=== PATIENT | female | born 1940 | race Caucasian/White ===

== ENCOUNTER 2018-03-21 14:26 | Inpatient (IN) | payer MEDICARE ==
[2018-03-21] MEDS ORDERED: Dextrose 50% Syringe 50 ML* 25 GM/50 ML SYRINGE IV PUSH ONE (15:01)
[2018-03-21] MEDS ORDERED: NS 0.9% 1000 ML* 1,000 ML IV ONE (15:03)
[2018-03-21] MEDS ORDERED: Dextrose 50% Syringe 50 ML* 25 GM/50 ML SYRINGE ONE (15:28)
[2018-03-21 15:41] LABS: ABS Basophils 0.1 10^3/ul (0-0.2); ABS Eosinophils 0.3 10^3/ul (0-0.6); ABS Lymphocytes 1.1 10^3/ul (1.0-4.8); ABS Monocytes 0.6 10^3/ul (0-0.8); ABS Nucleated RBC 0 10^3/ul; Eosinophil % 3.9 % (0-6); Hematocrit 38 % (35-47); Hemoglobin 12.6 g/dl (12.0-16.0); Lymphocyte % 16.1 % (25-47); Mean Corpuscular HGB Conc 33 g/dl (31-36); Mean Corpuscular Hemoglobin 29 pg (27-31); Mean Corpuscular Volume 87 fL (80-97); Mean Platelet Volume 6.9 um3 (7.4-10.4); Nucleated Red Blood Cells % 0.1; Platelet Count 456 10^3/ul (150-450); Red Blood Count 4.35 10^6/ul (4.0-5.4); Red Cell Distribution Width 18 % (10.5-15)
[2018-03-21] MEDS ORDERED: LORazepam INJ* 2 MG/ML 1 ML VIAL IV PUSH ONE ×2 (15:41→16:16)
[2018-03-21] MEDS ORDERED: LORazepam INJ* 2 MG/ML 1 ML VIAL ONE ×2 (15:43→16:09)
[2018-03-21] MEDS ORDERED: Morphine VIAL* 4 MG/ML VIAL (1 ml vial) IV ONE ×3 (15:45→15:55)
[2018-03-21 15:47] LABS: INR 0.91 (0.77-1.02)
[2018-03-21] MEDS ORDERED: Iodixanol* (CONTRAST) 320 MG/ML 100 ML SDV IV ONE (15:53)
--- NOTE | 2018-03-21 16:17 | RAD ---
INDICATION: Altered mental status COMPARISON: CT January 04, 2018 TECHNIQUE: Single AP portable view of the chest was obtained. FINDINGS: Image quality is compromised due to the relative inferiority of a portable chest x-ray. The heart and mediastinum exhibit normal size and contour. There are densities obscuring the bilateral lung bases and obscuring the bilateral diaphragm. More superiorly the lungs are adequately aerated. Visualized bones are normal for the patient's age. IMPRESSION: Increased density overlying the bilateral lower lungs could be consistent with mild pulmonary edema similar to the appearance of the chest CT dated January 04, 2018
--- NOTE | 2018-03-21 16:31 | RAD ---
INDICATION: Altered mental status COMPARISON: None. TECHNIQUE: Contiguous axial sections of the brain were obtained from the skull base to the vertex without contrast. FINDINGS: The ventricles, cisterns and sulci exhibit mild and symmetric involutional changes appropriate for the patient's age.. There is a mild degree of periventricular and subcortical white matter hypoattenuation most consistent with chronic microvascular disease. At the junction of the ng-white matter at the right frontal lobe (image 13) there is a focal 5 mm hypoattenuation. Otherwise the tanner-white matter differentiation is adequately maintained and there is no sulcal effacement. No significant focal abnormality or mass effect is present. There is atherosclerotic calcification of the vertebral arteries and petrous carotid arteries. There is no evidence for intracranial hemorrhage. No significant focal osseous abnormality is present. The visualized portion of the paranasal sinuses appear clear. The mastoid air cells are well aerated bilaterally. IMPRESSION: 1. At the right frontal lobe there is a 5 mm hypoattenuating focus that could represent a focal infarction in the correct clinical setting. There are no prior CT images for comparison to comment on chronicity. If the patient is exhibiting focal neurologic deficits and it will influence acute management, superior characterization can be made with MRI of the brain. 2. Otherwise CT findings are consistent with chronic microvascular disease and age-appropriate involutional changes.
--- NOTE | 2018-03-21 17:35 | RAD ---
CPT II: CPT II Codes: 3100F INDICATION: Altered mental status COMPARISON: Same day CT of the brain that did not show any acute intracranial abnormalities. TECHNIQUE: A CT angiogram of the head and neck was performed with 80 cc of Visipaque 320. Contiguous axial sections were obtained from the thoracic inlet through the [place]. Images were reconstructed in the sagittal, coronal planes and in a 3-D volume rendered format. The distal cervical internal carotid artery diameter is used as the denominater for stenosis measurement. CTA NECK: The common and internal carotid arteries are patent without hemodynamically significant stenosis. Right: Below the carotid bifurcation the right common carotid artery measures 6 mm in short axis diameter. There is mixed attenuation atherosclerosis at the carotid bulb but the right internal carotid artery measures 6 mm in short axis diameter and immediately adjacent to the carotid bulb. This yields 0% degree stenosis. Left: Below the carotid bifurcation the common carotid artery measures 6 mm in short axis diameter. There is coarse atherosclerotic calcification at the carotid bulb extending into the inferior most portion of the internal carotid artery narrowing the lumen to 4 mm. This yields 33% degree stenosis. The vertebral arteries are patent without gross abnormality. CTA of the brain: The internal carotid, anterior and middle cerebral arteries appear are patent without high grade stenosis or occlusion. There is coarse atherosclerotic calcification of the petrous carotid arteries. The vertebral, basilar and posterior cerebral arteries appear patent without high grade stenosis or occlusion. The posterior communicating arteries appear to be at least extremely diminutive if not absent bilaterally causing the [place] to be incomplete. No focal luminal filling defect, aneurysm or vascular malformation is seen. NON-ARTERIAL FINDINGS: There is a moderate left and large right pleural effusion partially visualized. IMPRESSION: 1. There is approximately 33% degree stenosis due to calcified atherosclerosis at the left carotid bulb. 2. Large right and moderate left pleural effusion is partially visualized. Findings were reported Dr. Elias over the telephone at 1732 hours on March 21, 2018.
--- NOTE | 2018-03-21 17:50 | RAD ---
INDICATION: Altered mental status patient is status post right nephrectomy 14 days earlier. COMPARISON: Similar CT examination dated January 04, 2018. TECHNIQUE: Multidetector CT images of the chest, abdomen and pelvis were obtained from the lung apices to the ischial tuberosities without intravenous contrast . Imaging was acquired approximately 4 minutes after the patient received IV contrast for a CT of the head and neck. Image quality is limited by motion artifact, the absence of oral contrast, the late stage of the IV contrast and the fact the patient's arms are overlying her body. CHEST: There is a large right and small to moderate left pleural effusion with adjacent compressive atelectasis of the bilateral lower lobes. There is no mediastinal or hilar lymphadenopathy. The heart and major vascular structures are grossly normal in appearance. ABDOMEN & PELVIS: The liver, spleen, pancreas and adrenal glands are grossly normal in appearance. The gallbladder is normal. The left kidney is normal in appearance without focal mass, calcification or signs of hydronephrosis. The previously injected intravenous contrast is being excreted from the left kidney, filling the left ureter and dependent portion of the urinary bladder. There is gas in the nondependent portion of the urinary bladder. The right kidney is surgically absent and there are clips in the right renal fossa. Evaluation of the gastrointestinal tract is limited in the absence of oral contrast. The small and large bowel are not distended. There is no gross retroperitoneal or mesenteric lymphadenopathy. Coarse calcification in the vicinity of the uterus mostly likely represents old uterine fibroids. There is coarse calcification of the abdominal aorta extending into the bilateral iliofemoral arteries. There are no sinister bone lesions. Multilevel degenerative changes include loss of intervertebral disc height of the thoracic and lumbar spine as well as endplate sclerosis and marginal osteophyte formation from L2 to L4. IMPRESSION: 1. The CT imaging is low quality due to a number of factors listed the top of the report. 2. Large right and moderate left pleural effusion with adjacent compressive atelectasis. 3. Postsurgical changes are consistent with reported history of right nephrectomy. There is no large retroperitoneal fluid collection. 4. There is the nondependent portion of the urinary bladder. Please correlate to prior instrumentation. Alternatively gas-forming microorganisms could cause this appearance. 5. Additional chronic and degenerative changes described in the body the report unlikely to be directly related to the patient's current clinical presentation.
[2018-03-21 20:39] LABS: Urine Appearance Clear; Urine Blood Negative (Negative); Urine Color Straw; Urine Ketones Negative (Negative); Urine Protein Negative (Negative); Urine Specific Gravity 1.017 (1.010-1.030); Urine Urobilinogen Negative (Negative)
[2018-03-21] MEDS ORDERED: Magnesium Sulfate IV* 3 GM in NS 0.9% 100 ML* 100 ML IVPB ONE (20:57)
[2018-03-21] MEDS ORDERED: levETIRAcetam IV* 1,000 MG in NS 0.9% 100 ML* 100 ML IVPB SCH (21:00)
[2018-03-21] MEDS ORDERED: levETIRAcetam IV* 1,000 MG in NS 0.9% 100 ML* 100 ML IVPB ONE (21:00)
[2018-03-21] MEDS ORDERED: levETIRAcetam IV* 500 MG/5 ML VIAL ONE (21:20)
--- NOTE | 2018-03-21 21:22 | RAD ---
INDICATION: Altered mental status COMPARISON: Same day CT of the brain acquired at 1617 hours TECHNIQUE: Contiguous axial sections of the brain were obtained from the skull base to the vertex without contrast at 2049 hours. FINDINGS: Similar to the previous same day CT of the brain image quality is degraded by motion artifact despite 2 sets of image acquisition. The ventricles, cisterns and sulci exhibit mild and symmetrical involutional changes appropriate for the patient's age. There is a mild degree of periventricular and subcortical white matter hypoattenuation most consistent with chronic microvascular disease. The focal 5 mm hypoattenuating focus seen on the previous CT the brain is not confidently visualized on this scan. The tanner-white matter differentiation is adequately maintained and there is no sulcal effacement. No significant focal abnormality or mass effect is present. There is coarse atherosclerotic calcification of the petrous carotid arteries and bilateral vertebral arteries. There is no evidence for intracranial hemorrhage. No significant focal osseous abnormality is present. The visualized portion of the paranasal sinuses appear clear. The mastoid air cells are well aerated bilaterally. IMPRESSION: Image quality is again degraded by motion artifact despite 2 sets of image acquisition. Again seen are age-appropriate chronic findings without definite acute intracranial abnormality.
--- NOTE | 2018-03-21 21:33 | CONS ---
CONSULTATION REPORT: DATE OF CONSULT: 03/21/18 DATE OF DICTATION: 03/21/18 PATIENT OF: Dr. Nelson, Dr. Gallegos, and Dr. Elias. HISTORY OF PRESENT ILLNESS: This is a 77-year-old right-handed woman, who has had a recent complicated medical history. She has been recently diagnosed with renal cell carcinoma, which she had infiltrated into her, apparently, vena cava and had surgery done in [place] with an open right radical nephrectomy, inferior vena cava thrombectomy, lymphadenectomy for renal cell carcinoma. Following the surgery, she had episodes of confusion and agitation that lasted at least several days' time, probably more. She had workups that included a CT scan and an EEG done in [place] and we do not have those results, although the daughter does not think that there is anything on them that changed her care. She was then sent to a subacute facility and then recently to [facility] on Thursday. She has been confused as recently as this past week. She walks with a walker and this Thursday afternoon, she was talking to the daughter in a normal way and walking with the walker without any deficits. It is unclear if she was confused last evening. This morning the daughter came to visit, and she was confused and agitated. This went on for the whole morning and then this afternoon, she had acute difficulty speaking as well as her general confusion. She came in to the ER by ambulance, agitated, but moving all extremities with power and was not cooperative with the ER exam or with CT scan. She was sedated for those procedures. 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 Of note, she had seen Dr. Golden in [place]. PAST MEDICAL HISTORY: She has a past history for hypertension, type 1 diabetes. She also has hypothyroidism. MEDICATIONS: From [facility], her medicines include: 1. Levothyroxine 125 mcg a day. 2. Calcium carbonate. 3. Insulin Humalog 5 units t.i.d. with meals. 4. Norvasc 5 mg daily. 5. Ferrous sulfate 325 daily. 6. Cozaar 25 mg daily. 7. Lantus 7 units subcu daily. 8. Dulcolax 10 mg p.r.n. It is not in her hospital chart or on her orders from [facility] that she was on any blood thinner. It sounded like she had been on blood thinner in [place]. ALLERGIES: She is allergic to PENICILLINS. SOCIAL HISTORY: She does not smoke, drink, or use drugs. REVIEW OF SYSTEMS: Positive for unsteady gait and generalized fatigue. PHYSICAL EXAM: Temperature 97.3, pulse 63, respirations 18, blood pressure 118/ 71. She was sedated, but would react to stimuli either in all 4 extremities with good strength, at least 4/5, but she was not fully cooperative. She did not speak to me, but she was sedated. When I opened up her eyes, her pupils were 2 mm and sluggish. Sensation intact to noxious stimuli on both sides. Cranial nerves were hard to assess. There was no clear-cut facial palsy and she was not cooperative with exam at all. Chest had bilateral rales, worse on the right. Cardiovascular: Regular rate and rhythm. Abdomen is soft. DIAGNOSTIC STUDIES/LAB DATA: Her head and neck CTA shows 33% left carotid occlusion. There is no high-grade stenosis noted. She had a large right and moderate left pleural effusion. She had a chest, abdomen, and pelvic CTA, which showed the pleural effusions, the right nephrectomy. Her CT scan of brain was reviewed. We have no prior CT scan to compare to. There was a right frontotemporal hypodense lesion, which radiologist thought could be the acute infarct. There were chronic microvascular changes as well. There was no bleeding on the CT scan and it is hard to tell if there was any acuity to her hypodensities. It looked like she had diffuse atrophy and sulci enlargement. Labs included a normal white count, platelet count of 456, hematocrit of 38. Normal INR. Chemistry: She had a sodium of 120, glucose of 54, ammonia of 30. Alk phos 173. Total protein 6.7. TSH 13.46. Salicylates and acetaminophen were negative. IMPRESSION AND PLAN: Elizabeth is a complicated patient. Her last known well was sometime yesterday late afternoon between her recent nephrectomy and inferior vena cava thrombectomy. She is clearly not a tPA candidate, but she is also outside the window for procedures such as clot retrieval, but there is also no large vessel occlusion noted on her CTA because her last known well was a little bit unclear with a wide variation. It is possible that this still could represent a stroke and there may, what was being described could possibly, be in part aphasia, especially when she was found later on today, but earlier on this was just a sort of agitation and confusion similar to what she had in [place]. It is possible that this could be a metabolic process. Her sodium is low. She is quite hypothyroid. She is hypoglycemic, so all of these need to be corrected. Other things to be aware, when I discussed this with Dr. Elias, is that she is at risk for pulmonary embolus, and despite her negative CTA, I would be aggressive in terms of working her up for hypoxemia that could be contributing this and Dr. Elias will get at least a blood gas and also she clearly needs to be evaluated urinary tract infection in the postsurgical setting. We are also getting the records from [place] in terms of her prior CT scan and CTA, discussed with the daughter in detail these issues and depending on how things go, an MRI scan would be helpful in the next day or so to sort out if there was acute stroke contributing to her symptoms. Once we get the records from [place], we would make a further decision in terms of whether she should have aspirin or other measures. Thank you for sharing her case. [id number]/[facility] #: [id number] THUY
[2018-03-21] MEDS ORDERED: Dextrose 50% Syringe 50 ML* 25 GM/50 ML SYRINGE IV PUSH PRN (21:39)
[2018-03-21] MEDS ORDERED: NS 0.9% 500 ML* 500 ML IV ONE (21:50)
[2018-03-21 22:00] LABS: EGFR Non-African American 67.4 (>60)
[2018-03-21] MEDS: Heparin VIAL(*) 5000 UNITS/ML VIAL (FIVE THOUSAND) SUBCUT SCH (22:41)
[2018-03-21] MEDS ORDERED: Aspirin SUPP* 300 MG ONE (23:02)
[2018-03-21] MEDS: Aspirin SUPP* 300 MG PR SCH (23:05)
[2018-03-22 00:12] LABS: EGFR Non-African American 68.4 (>60)
[2018-03-22] MEDS: NS 0.9% 1000 ML* 1,000 ML IV SCH ×2 (00:40→19:36)
--- NOTE | 2018-03-22 01:18 | ED ---
Cedrick Shepard Simon, scribed for Elizabeth Elias MD on 03/21/18 at 1551 . Altered Mental Status - HPI Summary HPI Summary: This patient is a 77 year old F presenting to [facility] accompanied by daughter from [facility] with a chief complaint of AMS and extreme confusion starting 03/20/18, with a possible LKW of 2100. Sx started out today with pt as less responsive, then became nonverbal and unable to follow commands as day progressed; unresponsive. Pt is S/P right nephrectomy 14 days ago at [facility] for renal carcinoma . No respiratory distress, no vomiting, no recent fall, no roommate at [facility] to report behavior. Per daughter, pt had a lot of delirium for 4-5 days post-surgery. Was normal last week, confused this morning , increasingly more symptomatic and confused as day went on. Sodium levels low after surgery a major concern, started Na+ pills post-op. Still able to urinate normally without weinstein. Post-op there was trouble with blood pressure fluctuation. Pt never needed dialysis. Was in correction at [facility] recently but was pretty normal and walking around until today. At the time of initial evaluation: Breathing labored, awake snoring sounds. 162/106, 81 BPM, 2L NC O2 applied, but O2 sats 95% on RA. Blood glucose 120 taken by EMS today [facility]. No narcotics are being given for pain. Blood glucose 59 @ 1530. Not herself this morning, worse throughout the day, saying things that didnt make sense today. Daughter doesnt know if Pt has eaten today. Dr Garnett reports after review of records that pt had vena cava clot and vena cava thrombectomy, caused by renal cell CA compressing vena cava and that pt was believed to be on blood thinners post op at [place]. Review of records from [facility] now show pt is not on any blood thinners. Level 5 caveat: Unable to obtain full HPI due to pt s AMS. - History Of Current Complaint Chief Complaint: EDAltMentalStatus Stated Complaint: AMS Hx Obtained From: Family/Content Analyst, EMS Hx From Patient Unobtainable Due To: Altered Mental Status Onset/Duration: Unknown - possible LNK 2100 03/20/18, Still Present, Gradually Timing: Constant, Lasting Hours Severity Initially: Mild Severity Currently: Severe Character: Confusion, Agitation Aggravating Factor(s): Unknown Alleviating Factor(s): Unknown Associated Signs And Symptoms: Negative: Fever Related History: Similar Episode/Diagnosed As: - delirium after surgery - Allergies/Home Medications Allergies/Adverse Reactions: Allergies Allergy/AdvReac Type Severity Reaction Status Date / Time Penicillins Allergy Severe Unknown Verified 03/21/18 15:01 Reaction Details Home Medications: Home Medications Acetaminophen TAB* [Tylenol TAB*] 650 mg PO Q6H PRN 03/21/18 [History Confirmed 03/21/18] Al Hydrox/Mg Hydrox/Aakash BULK* [Mylanta - BULK BOT*] 15 ml PO Q4H PRN 03/21/18 [ History Confirmed 03/21/18] Bisacodyl SUPP* [Dulcolax Supp*] 10 mg NM DAILY PRN 03/21/18 [History Confirmed 03/21/18] Calcium Carbonate/Vitamin D3 [Calcium 600-Vit D3 800 Caplet] 2 tab PO DAILY 07/29 [History Confirmed 03/21/18] Ferrous Sulfate TAB* 325 mg PO EVERY OTHER DAY 03/21/18 [History Confirmed 03/21] Insulin GLARGINE(*) [Lantus(*)] 7 units SUBCUT DAILY 03/21/18 [History Confirmed 03/21/18] Insulin Lispro [Humalog Kwikpen] 5 unit SC TID AC 03/21/18 [History Confirmed ] Insulin Lispro [Humalog Kwikpen] 5 unit SC TID AC 03/21/18 [History Confirmed ] Levothyroxine TAB* [Synthroid TAB*] 125 mcg PO QAM 03/21/18 [History Confirmed 03/21/18] Losartan TAB* [Cozaar TAB*] 25 mg PO DAILY 03/21/18 [History Confirmed 03/21/18] Magnesium Hydroxide LIQ* [Milk of Magnesia LIQ*] 30 ml PO DAILY PRN 03/21/18 [ History Confirmed 03/21/18] [place]-3 Fatty Acids (Nf) [Fish Oil (NF)] 1,000 mg PO DAILY 03/21/18 [History Confirmed 03/21/18] amLODIPine TAB* [Norvasc 5 mg TAB*] 5 mg PO DAILY 03/21/18 [History Confirmed ] PMH/Surg Hx/FS Hx/Imm Hx Previously Healthy: No Endocrine/Hematology History: Reports: Hx Diabetes - type I Cardiovascular History: Reports: 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, Hx Hypertension History: Reports: Hx Renal Disease - renal cell carcinoma Sensory History: Denies: Hx Legally Blind, Hx Deafness Opthamlomology History: Denies: Hx Legally Blind EENT History: Denies: Hx Deafness - Cancer History Cancer Type, Location and Year: renal cell carcinoma, 2018 - Surgical History Surgery Procedure, Year, and Place: eye, laser treatment, right Nephrectomy 2017 for renal cell carcinoma Infectious Disease History: No Infectious Disease History: Denies: Traveled Outside the [place] in Last 30 Days - Family History Known Family History: Positive: Other - Right eye Ptosis in son, father - Social History Lives: At [facility] Alcohol Use: Occasionally Substance Use Type: Reports: None Smoking Status (MU): Never Smoked Tobacco Review of Systems - ROS Summary Review of Systems Summary: Level 5 caveat: ROS limited do to Pt's AMS. Constitutional: Negative Positive: Other - Pinpoint pupils Positive: Other - Labored, clearing throat alot Negative: Vomiting Positive: other - able to urinate s/p nephrectomy Neurological: Other - altered mental status, agitated All Other Systems Reviewed And Are Negative: No Physical Exam - Summary Physical Exam Summary: Appearance: ill-appearing, pt nonverbal, grunting, actively moving on stretcher , no eye contact, frequent throat clearing Skin: Warm, color reflects adequate perfusion, dry Head: Normal Head/Face inspection, atraumatic Eyes: Conjunctiva clear, pinpoint pupils ENT: Normal inspection Neck: Supple, no nodes, no JVD Respiratory: decreased breath sounds throughout, worse on right than left, no wheezes, Cardio: RRR, No murmur, pulses normal, brisk capillary refill Abdomen: Soft, nontender, steri-strips in place over abd incision which is dry and intact. No masses. Bowel sounds: Present Musculoskeletal: moves all extremitites, 2+ pedal edema, no deformities Psychological: Unable to determine due to AMS Neuro: Eyes open, moaning, otherwise nonverbal. No focal deficit, unable to follow commands. Triage Information Reviewed: Yes Vital Signs On Initial Exam: Initial Vitals Temp Pulse Resp BP Pulse Ox 97.3 F 85 22 144/122 93 06/10/18 14:59 03/21/18 14:59 03/21/18 14:59 03/21/18 14:59 03/21/18 14:59 Vital Signs Reviewed: Yes Completion Of Physical Exam Limited Due To: Altered Mental Status - [place] Coma Scale Best Eye Response: 4 - Spontaneous Best Motor Response: 5 - Purposeful Movement Best Verbal Response: 2 - Incomprehensible Words Coma Scale Total: 11 Diagnostics - Vital Signs Vital Signs Temp Pulse Resp BP Pulse Ox 03/21/18 15:45 18 03/21/18 14:59 97.3 F 85 22 144/122 93 - Laboratory Lab Results: Lab Results 03/21/18 03/21/18 Range/Units 15:26 15:34 WBC 7.0 (3.5-10.8) 10^3/ul RBC 4.35 (4.0-5.4) 10^6/ul Hgb 12.6 (12.0-16.0) g/dl Hct 38 (35-47) % MCV 87 (80-97) fL MCH 29 (27-31) pg MCHC 33 (31-36) g/dl RDW 18 H (10.5-15) % Plt Count 456 H (150-450) 10^3/ul MPV 6.9 L (7.4-10.4) um3 Neut % (Auto) 70.4 (38-83) % Lymph % (Auto) 16.1 L (25-47) % [place] % (Auto) 8.3 H (0-7) % Eos % (Auto) 3.9 (0-6) % Baso % (Auto) 1.3 (0-2) % Absolute Neuts (auto) 5.0 (1.5-7.7) 10^3/ul Absolute Lymphs (auto) 1.1 (1.0-4.8) 10^3/ul Absolute Monos (auto) 0.6 (0-0.8) 10^3/ul Absolute Eos (auto) 0.3 (0-0.6) 10^3/ul Absolute Basos (auto) 0.1 (0-0.2) 10^3/ul Absolute Nucleated RBC 0 10^3/ul Nucleated RBC % 0.1 POC Glucose (mg/dL) 59 L (70-100) mg/dL Result Diagrams: 03/21/18 15:34 03/21/18 23:45 Lab Statement: Any lab studies that have been ordered have been reviewed, and results considered in the medical decision making process. - Radiology CXR Xray Interpretation: No Acute Changes - Possible similarity to 01/04/18 CT chest Radiology Interpretation Completed By: Radiologist - Increased density overlying the bilateral lower lungs, could be consistant with mild pulmonary edema similar to the appearance of the chest CT 01/04/18. Dr. Elias aware of this report. - CT CT brain CT Interpretation Completed By: Radiologist - 1. At the right frontal lobe there is a 5 mm hypoattenuating focus that could represent a focal infarction in the correct clinical setting. There are no prior CT images for comparison to comment on chronicity. If the patient is exhibiting focal neurologic deficits and it will influence acute management, superior characterization can be made with MRI of the brain. 2. Otherwise CT findings are consistent with chronic microvascular disease and age-appropriate involutional changes. Dr. Elias aware of this report. CTA head/neck CT Interpretation Completed By: Radiologist CT chest A/P CT Interpretation Completed By: Radiologist - 1. The CT imaging is low quality due to a number of factors listed the top of the report. 2. Large right and moderate left pleural effusion with adjacent compressive atelectasis. 3. Postsurgical changes are consistent with reported history of right nephrectomy. There is no large retroperitoneal fluid collection. 4. There is the nondependent portion of the urinary bladder. Please correlate to prior instrumentation. Alternatively gas-forming microorganisms could cause this appearance. 5. Additional chronic and degenerative changes described in the body the report unlikely to be directly related to the patient's current clinical presentation. Dr. Elias aware of this report. Re-Evaluation - Re-Evaluation First Eval Re-Evaluation Time: 15:00 Change: Unchanged Comment: remains with altered mental status, daughter at bedside, states pt is Type I DM. Check FS glu =59. D50, 1 amp given. Second Eval Re-Evaluation Time: 15:30 Change: Unchanged Comment: pt remains agitated on stretcher, moving all extremities, moaning, needs sedation to obtain CT scans. Ativan, Morphine given. Third Eval Re-Evaluation Time: 16:30 Change: Unchanged Comment: Discussed brain CT with Dr. Hartman. Pt remains with altered mental status and daughter with pt. Altered Mental Statu Course/Dx - Course Course Of Treatment: 77 yo F with hx renal cell CA BIBA for worsening mental status since possibly 2100pm 03/20/18, s/p right nephrectomy 2 weeks ago. Pt is not TPA eligible due to recent nephrectomy so lyssa tanner not called on adm. If LNW is 2100, pt could still be LVO and candidate for endovascular retrieval, so CT head and neck ordered at same time as CT. Pt in soft restraints on EMS stretcher, restraints removed once in room. Called Dr. Garnett 1530 to discuss whether or not to call lyssa tanner (no)/whether or not to perform CT, CTA Chest A/ P with the highest priority (yes), sedation if necessary (yes, ativan). Pt given D50w Syringe for low glucose, dropped since EMS, Visipaque 320, Ativan, Morphine sulfate. 170 Dr[address] Garnett calls to check on pt status, is on his way to come see pt in ED. CTA does not show LVO occlusion or significant carotid stenosis. Pt does not need [facility] at this . 1899, consult Dr. Durbin, agrees to [place] [facility] ABG and UA done - Diagnoses Differential Diagnosis/HQI/PQRI: CVA, Hypoglycemia, Hypothermia, Hypoxia, Intracranial Bleed, Medication Reaction, Metabolic Disorder, Postictal State, Sepsis, Seizure Provider Diagnoses: Altered mental status, S/p nephrectomy, Hypoglycemia due to type 1 diabetes mellitus During the Visit The Following Alert/Code Occurred: Lyssa Tariq - Provider Notifications Discussed Care Of Patient With: Martin Garnett Time Discussed With Above Provider: 15:30 Instructed by Provider To: Admit As Inpatient - Critical Care Time Critical Care Time: 30-74 min - 60 minutes Discharge - Sign-Out/Discharge Documenting (check all that apply): Discharge/Admit/Transfer - admit - Discharge Plan Condition: Critical Disposition: ADMITTED TO [facility] - Billing Disposition and Condition Condition: CRITICAL Disposition: Admitted to [facility] Consult Consult: [address] Durbin who recommended admission to [facility]. The documentation as recorded by the Cedrick lucio Simon accurately reflects the service I personally performed and the decisions made by me, Elizabeth Elias MD.
--- NOTE | 2018-03-22 02:03 | HP ---
CC: Dr. Gabe Nelson; Dr. Martin Garnett * HISTORY AND PHYSICAL: DATE OF ADMISSION: 03/21/18 PRIMARY CARE PROVIDER: Dr. Gabe Nelson. ATTENDING PHYSICIAN: Dr. Wendy Combs *(dictated by Oneyda Demarco NP) CHIEF COMPLAINT: Altered mental status. HISTORY OF PRESENT ILLNESS: Ms. Boss is a 77-year-old female with past medical history significant for diabetes mellitus, renal cell carcinoma, hypertension, hypothyroidism, mild aortic stenosis and anemia, who underwent a right radical nephrectomy on 03/09/18 in [facility]. According to the records from [place], the patient had a postop delirium that had worsened. She had a brain CT showing no acute findings and other workup. According to the notes, the delirium resolved after her epidural was removed, and according to the patient's daughter, she had been back to her usual normal state of health. 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 She had her last sodium on 03/19/18 and it was 125 with a chloride of 90. Per Dr. Nelson' note from a followup on 03/19/18, stated that she had a left pleural effusion. I am unable to find any further details about this. She also had a platelet count of 543, a hemoglobin A1c of 6.5, EF of 60% to 65% with a diastolic dysfunction. Due to postop weakness, the patient moved from where she was in [facility] to the [facility] facility upon discharge from the hospital. According to her daughter, she was at her normal mentation last evening and today, she was found to be altered, nonverbal, and reacting to painful stimuli today. Due to her altered mental status, she was brought to the emergency room for further evaluation. While in the emergency room, the patient was acting to painful stimuli. Her glucose was found to be 59. She received IV dextrose with repeat glucose 137. Sodium is 120, chloride 86, BUN 30. Alk phos elevated at 173, but she appears to chronically have an elevated alk phos. Magnesium 1.7. The patient was restless, received a total of 1.5 mg of IV Ativan in addition to 4 mg of IV morphine. At the time of my evaluation, the patient is alone as her daughter has left. She is nonverbal, minimally responding to painful stimuli. Her pupils are pinpoint. She has her arms pulled up on her chest with some resistance to trying to move them. Due to the patient's altered mental status, she is unable to give a history and physical and history is obtained through medical records and discussing the case with Dr. Elias. She had a blood gas showing only abnormality of PO2 of 73 and a base excess of 3.3. Hospitalists were asked to evaluate the patient for admission. PAST MEDICAL HISTORY: 1. Diabetes mellitus. 2. Renal cell carcinoma. 3. Hypertension. 4. Hypothyroidism. 5. Mild aortic stenosis. 6. Anemia. PAST SURGICAL HISTORY: Status post an open right radical nephrectomy with inferior vena cava thrombectomy and lymphadenectomy on 03/09/18. MEDICATIONS: Home medications include: 1. Tap water enema 500 cc per rectum on the 5th day after no bowel movement. 2. Mylanta 15 mL oral every 4 hours as needed for dyspepsia. 3. Acetaminophen 650 mg p.o. p.r. every 6 hours as needed for fever. 4. Milk of magnesia 30 mL oral daily as needed on the 4th day after no BM or sooner. 5. Dulcolax suppository 10 mg p.r. daily as needed on the 4th day if no BM, if no effect of milk of mag. 6. Levothyroxine 125 mcg oral every morning. 7. Humalog 5 units subcu 3 times daily with meals. 8. Lantus insulin 7 units subcu daily. 9. Losartan 25 mg oral daily. 10. Fish oil 1000 mg oral daily. 11. Ferrous sulfate 325 mg oral every other day. 12. Amlodipine 5 mg oral daily. 13. Kwik lispro insulin 5 units subcutaneous every evening. 14. Calcium 600 - vitamin D3 two tablets oral daily. ALLERGIES: PENICILLIN. FAMILY HISTORY: Unable to determine due to the patient's altered mental status. SOCIAL HISTORY: Unable to determine due to the patient's altered mental status. It appears that her daughter, Radha Boss, will be her surrogate decision maker in the event she is unable to make decisions for herself according to the [facility] records. REVIEW OF SYSTEMS: I was unable to perform a review of systems with the patient , but her pertinent findings are listed in the history of present illness. PHYSICAL EXAMINATION GENERAL APPEARANCE: The patient is a frail, elderly-appearing female, in no acute distress. VITAL SIGNS: Temperature 97.3, heart rate 71, respiratory rate 18, O2 sat 98% on room air, blood pressure 122/66. HEENT: Normocephalic, atraumatic. Pupils are equal and pinpoint in size. Nonreactive to light. Unable to determine extraocular movements. RESPIRATORY: There is no accessory muscle use. The lungs are clear to auscultation bilateral. CARDIOVASCULAR: Regular rate and rhythm. S1 and S2 present. There is a soft systolic murmur heard best at the right upper sternal border. ABDOMEN: Soft, nontender, nondistended. There is right lower abdominal swelling near the incision line. There are bowel sounds hypoactive x4. EXTREMITIES: There is 2+ bilateral lower extremity edema. DP and PT pulses are 1+ and symmetric. MUSCULOSKELETAL: There is no clubbing or cyanosis noted. At this time, the patient is not moving all extremities. She has her arms bent over her chest. NEUROLOGICAL: The patient is unresponsive, unable to determine orientation. She is minimally responsive to pain. SKIN: The patient has a large abdominal J-shaped incision with Steri-Strips that is well approximated. There is no erythema or signs of infection. There are no other rashes or abnormalities seen. DIAGNOSTIC STUDIES/LAB DATA: Sodium 120, potassium 4.8, chloride 86, CO2 of 28 , BUN 30, creatinine 0.87, glucose 137, magnesium 1.7. White blood cell count 7.0, hemoglobin 12.6, hematocrit 38, and platelet count 456. ABG: pH 7.41, PCO2 of 45, PO2 of 73, HCO3 of 27.4, O2 sat 96.7%, base excess 3.3. EKG from today shows a sinus rhythm at a rate of 73. There are no acute signs of ischemia. There are no previous EKGs for comparison. Chest x-ray from today. Radiologist's impression: Increased density overlying the bilateral lower lungs could be consistent with mild pulmonary edema similar to the appearance of chest CT dated 01/04/18. Brain CT from today. Radiologist's impression: At the right frontal lobe, there is a 5-mm hypoattenuating focus that could represent a focal infarction in the current clinical setting. There are no prior CT images for comparison to comment on chronicity. If the patient is exhibiting focal neurological deficits and it will influence acute management, superior characterization can be made with MRI of the brain. Otherwise, CT findings are consistent with chronic microvascular disease and age-appropriate involutional changes. Head CT from today. Radiologist's impression: There is approximately 33% degree of stenosis due to calcified atherosclerosis at the left carotid bulb. Large right and moderate left pleural effusion is partially visualized. Chest, abdomen, pelvis CT from today. Radiologist's impression: The CT imaging is low quality due to a number of factors listed in the report. Large right and moderate left pleural effusion with adjacent compressive atelectasis. Postsurgical changes are consistent with reported history of right nephrectomy. There is no large retroperitoneal fluid collection. There is a nondependent portion of the urinary bladder. Please correlate to prior instrumentation. Alternately, gas- forming microorganisms could cause this appearance. Additionally, chronic and degenerative changes described in the body of the report unlikely to be directly related to the patient's current clinical presentation. IMPRESSION: Ms. Boss is a 77-year-old female with past medical history significant for diabetes; renal cell carcinoma, status post right radical nephrectomy; hypertension; hypothyroidism; mild aortic stenosis; anemia, who presents to the emergency room from [facility] with altered mental status. She will be admitted as an inpatient for altered mental status and hyponatremia. ASSESSMENT/PLAN: 1. Altered mental status. I suspect this is multifactorial. This includes pain medication received in the emergency room, hyponatremia, postoperative delirium, cerebrovascular accident, seizures, and hypoglycemia. The patient has already been seen in consultation by Dr. Garnett with Neurology. The plan will be to get an MRI in the morning. She already had a brain CT that was negative for acute findings. Upon my evaluation, the patient was noted to have her arms rigid on her chest. I discussed this with Dr. Garnett, who recommended a repeat CT to just ensure that she was not having brain bleeds and the EEG team will come in tonight to do an EEG. I am going to give the patient gentle IV fluids to treat her hyponatremia. I am also going to load her with a gram of Keppra per neurology in the event that this is nonconvulsive seizures and repeat an ABG. We will do neurologic checks q.2 hours. 2. Hyponatremia. I suspect this is likely secondary to SIADH in the setting of the patient's recent surgery. I am going to check serum and urine osmolalities. We will do serial basic metabolic panels to ensure that we are not raising her sodium too fast. We will monitor her urine output closely and place a urinary catheter to assist with this. 3. Hypomagnesium. The patient will receive magnesium replacement. We will recheck in the morning. 4. Elevated alkaline phos. The patient appears to chronically have an elevated alkaline phos. This should be continued to be followed by her primary care provider. 5. Diabetes mellitus. The patient was hypoglycemic when she came to emergency room. She received D5 and her glucose increased to 137. As she is not taking p.o., I am going to hold her insulins and resume when her glucoses are more stable. We will closely monitor her glucose overnight. 6. Renal cell carcinoma. The patient is status post radical right nephrectomy on 03/09/18. She will need to continue to follow up postoperatively as previously planned. Her incision has no signs of infection and appears to be healing well. 7. Hypothyroidism. The patient has an elevated TSH. Her TSH is 13.46. She just had her levothyroxine increased on 03/19/18 from 100 mcg to 125 mcg. We will not adjust her meds further. She will need to have a followup recheck of her TSH in 6 weeks. 8. History of hypertension. I am going to hold the patient's antihypertensives in the setting of a possible cerebrovascular accident to allow for permissive hypertension. We can resume them likely at 24 hours accordingly. 9. History of anemia. The patient is not currently anemic at this time. 10. Thrombocytosis. It appears that the patient's platelets have been elevated for a while now. We will continue to follow this. 11. Fluids, electrolytes, and nutrition. The patient will be n.p.o. until she is awake and able to take p.o. 12. Code status. Full code. 13. DVT prophylaxis. The patient is at high risk. If her repeat CT scan shows no signs of bleed, I will place her on subcu heparin. 14. Disposition. Inpatient. TIME SPENT: Time for this admission was approximately 70 minutes, greater than half of that was spent with the patient and reviewing her medical record. The case has been reviewed with the attending, Dr. Combs, who agrees with the plan of care. Reviewed by NANCY FENG 03/25/18 1039 [id number]/[facility] #: [id number] THUY
[2018-03-22] MEDS ORDERED: Furosemide IV* 10 MG/ML VIAL (40 MG) IV ONE (04:00)
[2018-03-22] MEDS ORDERED: Furosemide IV* 10 MG/ML 2 ML VIAL (20 MG) IV ONE (04:00)
[2018-03-22 06:28] LABS: ABS Basophils 0.1 10^3/ul (0-0.2); ABS Eosinophils 0.2 10^3/ul (0-0.6); ABS Lymphocytes 0.5 10^3/ul (1.0-4.8); ABS Monocytes 0.9 10^3/ul (0-0.8); ABS Neutrophils 12.4 10^3/ul (1.5-7.7); ABS Nucleated RBC 0 10^3/ul; Eosinophil % 1.3 % (0-6); Hematocrit 32 % (35-47); Hemoglobin 10.9 g/dl (12.0-16.0); Lymphocyte % 3.2 % (25-47); Mean Corpuscular HGB Conc 34 g/dl (31-36); Mean Corpuscular Hemoglobin 30 pg (27-31); Mean Corpuscular Volume 88 fL (80-97); Mean Platelet Volume 6.9 um3 (7.4-10.4); Nucleated Red Blood Cells % 0; Platelet Count 400 10^3/ul (150-450); Red Blood Count 3.69 10^6/ul (4.0-5.4); Red Cell Distribution Width 17 % (10.5-15)
[2018-03-22] MEDS: Heparin VIAL(*) 5000 UNITS/ML VIAL (FIVE THOUSAND) SUBCUT SCH ×3 (06:35→21:59)
[2018-03-22 06:43] LABS: EGFR Non-African American 78.3 (>60)
[2018-03-22] MEDS: Aspirin SUPP* 300 MG PR SCH (08:50)
[2018-03-22] MEDS ORDERED: diPHENhydraMINE IV* 50 MG/ML 1 ml VIAL (BENADRYL) SLOW PUSH ONE (10:49)
[2018-03-22] MEDS ORDERED: diPHENhydraMINE IV* 50 MG/ML 1 ml VIAL (BENADRYL) ONE (10:53)
[2018-03-22] MEDS: Morphine VIAL* 4 MG/ML VIAL (1 ml vial) IV PRN (10:58)
--- NOTE | 2018-03-22 12:04 | RAD ---
HISTORY: AMS, history of renal cell carcinoma COMPARISONS: Head CT dated March 21, 2018 TECHNIQUE: The following sequences were obtained of the head: Sagittal T1-weighted images, axial T2-weighted images, axial FLAIR images, axial susceptibility weighted images, axial T1-weighted images. Additionally, axial diffusion-weighted images were obtained with calculated apparent diffusion coefficients. FINDINGS: HEMORRHAGE/INFARCT: There is no hemorrhage or acute infarct. MASSES/SHIFT: There is no mass or shift. EXTRA-AXIAL SPACES/MENINGES: There are no extra-axial fluid collections. SULCI AND VENTRICLES: There is diffuse and proportional enlargement of the sulci and ventricles. CEREBRUM: There are few, scattered small foci of elevated T2/FLAIR signal within the periventricular and subcortical white matter. BRAINSTEM: There are no focal parenchymal abnormalities. CEREBELLUM: There are no focal parenchymal abnormalities. The cerebellar tonsils are normal in size and position. SELLA: The sella is normal. PINEAL: The pineal region is clear. CP ANGLE/TEMPORAL BONES: The labyrinthine structures are grossly normal. VESSELS: Normal flow-voids are noted within the visualized vertebral vasculature. DIFFUSION ABNORMALITIES: There are no diffusion abnormalities. PARANASAL SINUSES/MASTOIDS: The paranasal sinuses are clear. ORBITS: The orbits are unremarkable. BONES AND SOFT TISSUE: No bone or soft tissue abnormalities are noted. OTHER: None IMPRESSION: 1. DIFFUSE INVOLUTIONAL CHANGE. 2. FEW, SCATTERED, SMALL FOCI OF ELEVATED T2/FLAIR SIGNAL WITHIN THE PERIVENTRICULAR AND SUBCORTICAL WHITE MATTER. WHILE THESE FINDINGS ARE NONSPECIFIC, THEY CAN BE SEEN IN ASSOCIATION WITH MIGRAINE HEADACHE, THE SEQUELA OF PREVIOUS INFECTION OR INFLAMMATION, AND CHRONIC SMALL VESSEL ISCHEMIA. DEMYELINATING DISEASE IS ALSO WITHIN THE DIFFERENTIAL, BUT IS CONSIDERED LESS LIKELY IN THE ABSENCE OF THE APPROPRIATE CLINICAL PRESENTATION. 3. NO RESTRICTED DIFFUSION TO SUGGEST ACUTE INFARCT.
[2018-03-22] MEDS ORDERED: Naloxone* 0.4 MG/ML 1 ML VIAL IV PUSH ONE (13:42)
[2018-03-22] MEDS ORDERED: Furosemide IV* 10 MG/ML VIAL (40 MG) IV SLOW PU ONE (14:00)
--- NOTE | 2018-03-22 14:00 | PN ---
Progress Note - Progress Note Date of Service: 03/22/18 Note: CRITICAL CARE MEDICINE Date: 03/22/18 Time: 1100 SUBJECTIVE: Patient seen and examined. PHYSICAL EXAM: thin, frail Vital Signs: Reviewed. stable. Neurologic: encephalopathic. pupils 1mm. moves all ext to pain and can localize with effort but not opening eyes. Grimace present. Mild moan. but nothing to verbal. HEENT: pupils equal and neg ocr. Sclera anicteric. Trachea midline. Mild secretions Cardiovascular: S1 S2 Respiratory: coarse bl R>L and dec but comfortable pattern Abdomen: Soft, nt. Recent large incision looks fine Extremities: Warm; poor nail integrity. LABS: Reviewed. IMAGING: Reviewed. MEDICATIONS: Reviewed. ASSESSMENT: 77 F Acute encephalopathy - working dx is metabolic, but certainly can be multifactorial - however, no seizure on eeg, mri coming back with nonspecific scattered flare signals but no acute ischemia, stable abg, ammonia benign on admission and Na not too far off her recent counts Post operative changes post recent R nephrectomy Acute delirium befell her after that and can be similar to her ailment now, as well as report of SIADH contributing Euvolemic hyponatremia - working with NS and lasix currently. Can check bmp later today and if needed can consider 3% instead but no seizures and doubtful Na itself causing this degree of encephalopathy - could be potential post ictal? Hypothyroid b/l Pleural effusions PLAN: Neurologic: as above. time. Neuro f/u appreciated Cardiovascular: perfusing. vol status with ns and lasix Respiratory: RA. but Need to watch in icu for now. Airway ok but can lose easily. icu care. Gastrointestinal: npo for now. sup Renal/Metabolic: f/u fx Infectious Disease: no abx needs Hematology: stable. Endocrine: glu up now. ssi. T4 Musculoskeletal: turn and position. wound care Psych/Social: will look to d/w family Disposition: ICU Code Status: Full Critical Care Time: 30min Janna Grigsby DO
[2018-03-22] MEDS: Insulin LISPRO* 1 UNITS UNIT SUBCUT SCH ×2 (16:35→20:03)
[2018-03-22 17:49] LABS: EGFR Non-African American 82.3 (>60)
[2018-03-22] MEDS ORDERED: KCL 20 MEQ/100 ML IVPREMIX* 20 MEQ/100 ML BAG IV ONE (21:05)
[2018-03-22] MEDS ORDERED: Calcium CHLORIDE 10% SYRINGE* 1 GM in D5W 100 ML BAG* 100 ML IV ONE (21:05)
--- NOTE | 2018-03-23 00:04 | PN ---
Progress Note - Progress Note Date of Service: 03/23/18 Note: Patient on oxymask at beginning of shift, further desaturation during the evening. Diminished breath sounds. CXR rotated film with concern for worsening effusion on right. BiPAP placed with good effect.
[2018-03-23] MEDS: Insulin LISPRO* 1 UNITS UNIT SUBCUT SCH ×6 (00:44→20:26)
[2018-03-23] MEDS: NS 0.9% 1000 ML* 1,000 ML IV SCH ×2 (03:55→17:18)
[2018-03-23 05:25] LABS: ABS Basophils 0.1 10^3/ul (0-0.2); ABS Eosinophils 0 10^3/ul (0-0.6); ABS Lymphocytes 0.5 10^3/ul (1.0-4.8); ABS Monocytes 0.9 10^3/ul (0-0.8); ABS Neutrophils 18.6 10^3/ul (1.5-7.7); ABS Nucleated RBC 0 10^3/ul; Eosinophil % 0.2 % (0-6); Hematocrit 30 % (35-47); Hemoglobin 10.2 g/dl (12.0-16.0); Lymphocyte % 2.4 % (25-47); Mean Corpuscular HGB Conc 34 g/dl (31-36); Mean Corpuscular Hemoglobin 29 pg (27-31); Mean Corpuscular Volume 88 fL (80-97); Mean Platelet Volume 6.9 um3 (7.4-10.4); Nucleated Red Blood Cells % 0; Platelet Count 393 10^3/ul (150-450); Red Blood Count 3.46 10^6/ul (4.00-5.40); Red Cell Distribution Width 18 % (10.5-15); White Blood Count 20.1 10^3/ul (3.5-10.8)
[2018-03-23 05:35] LABS: EGFR Non-African American 56.9 (>60)
[2018-03-23] MEDS ORDERED: Furosemide IV* 10 MG/ML 2 ML VIAL (20 MG) IV ONE (06:23)
[2018-03-23] MEDS ORDERED: Furosemide IV* 10 MG/ML 2 ML VIAL (20 MG) ONE (06:26)
[2018-03-23] MEDS: Heparin VIAL(*) 5000 UNITS/ML VIAL (FIVE THOUSAND) SUBCUT SCH ×3 (06:31→21:53)
[2018-03-23] MEDS: Levothyroxine INJ* 100 MCG/5 ML VIAL IV SCH (06:31)
--- NOTE | 2018-03-23 07:33 | PN ---
NEUROLOGY PROGRESS NOTE: DATE OF SERVICE: 03/22/18 PRIMARY CARE PROVIDER: Dr. Grigsby. Neurology is following for the evaluation of confusion and minimally responsive state. CHIEF COMPLAINT: Minimally responsive. BRIEF HISTORY OF PRESENT ILLNESS: The patient is a 77-year-old female who has history of diabetes mellitus type 2, renal cell carcinoma, hypertension, hypothyroidism, who underwent right radical nephrectomy on 03/09/18 in [facility]. She had an episode of postop delirium, that apparently improved. She went to a rehab facility for 1 day, and then on Thursday, her daughter visited the patient and found that she is confused. She did have an episode of hyponatremia back 2 weeks ago when she was hospitalized for the nephrectomy where it was thought to be related secondary to SIADH. Her sodium apparently got up to the 125 and then she had improvement of her confusion state. She presented to for worsening confusion. During this hospitalization, the patient had a brain CT of the head that was completed on 03/21/18 that was unremarkable except for a 5 mm hypo-attenuated focus representing a previous infarction. There was no evidence of intracranial hemorrhage. She had a CTA of the head completed on 03/21/18 that showed no large vessel occlusion in the intracranial or extracranial vasculature. She had a large right and moderate left pleural effusion that is partially visualized on that study. She had a repeat CT of the head that did not show any interval changes and then she had an MRI of the brain without contrast that showed nonspecific T2 hyperintensities scattered in the periventricular and subcortical white matter. These findings are nonspecific. There are no areas of restricted diffusion to suggest an acute infarction. There is no area of demyelination in the erasto to suspect central pontine myelinolysis. Since being hospitalized, the patient had laboratory values that showed a sodium level of 118 that improved to 120. ABG was done and a pH was 7.46 with a pO2 of 71. Now, the patient has a white blood cell count of 14,000 in a jump from 7000. Her urinalysis was unremarkable. SUBJECTIVE: The patient is still minimally responsive. She is able to respond to noxious stimuli. She does not cooperate with the examiner. She is nonverbal. There has been no reported fevers or seizure-like activity. Apparently yesterday, the patient had some type of extensor movement that was concerning for posturing, but when evaluated by the primary provider and Dr. Garnett, who is the neurologist yesterday, there was no evidence of posturing on the examination. REVIEW OF SYSTEMS: Unable to obtain due to the patient's poor mental status. MEDICATIONS: Currently on aspirin 300 mg daily, dextrose, furosemide 40 mg IV slow push once, morphine 2 mg IV every 4 hours. PHYSICAL EXAMINATION: Temperature of 98.8, heart rate of 74, respiratory rate of 11, oxygen saturation of 98% and blood pressure of 160/117. General: Critically ill-appearing female, in no acute distress. She is awake, but not alert. Normocephalic, atraumatic. Conjunctivae/corneas are clear. Neck is supple with no carotid bruit. Lungs: Crackles and diminished lung sound in the bases bilaterally. Cardiovascular: Regular rhythm with normal S1, S2. Extremities: No hammertoes or high arches. Skin: No skin lesions or rashes. Psych: Not applicable given the patient's poor cooperation. Neurological Examination: Awake, but not alert, oriented to person, place, or time. She does not track examiner. She does not blink to eye threat. Cranial nerves, pinpoint pupils, but are sluggishly reactive bilaterally. She blinked to corneal reflexes; it was tested and are intact as she blinked to the corneal response. She nearly withdrew and removed my arm with nasal stimulation bilaterally. Motor: Increase in tone in bilateral upper extremity and bilateral lower extremities. She is able to withdraw to noxious stimuli and has a flexor of the elbow and flexor of the knee response to distal noxious stimuli. Reflexes: Right/left brachioradialis 2/3, biceps 2/3, triceps 2/2, patella 2/3, ankle trace/trace, plantar extensor/extensor. Sensation is intact to noxious stimuli. Coordination and gait were not assessed due to patient's mental status. LABS, IMAGING, AND OTHER DIAGNOSTIC TESTING: As mentioned above. ASSESSMENT AND RECOMMENDATIONS: This is a complex case. Ms. Elizabeth Boss is a 77-year-old female who recently had right radical nephrectomy. The patient presented with acute encephalopathy that is multifactorial. We suspected there is a metabolic component given her hyponatremia and mild hypoxia. I will review the records from [facility] looking for mostly any episodes of hypoglycemia or hypoxia during the hospitalization. What is interesting is that she had partial recovery for about a day or 2 and then was back to being confused. I wonder if her drop in sodium has a lot to do with her presentation. There was no evidence of seizure- like activity or an intracranial vascular phenomenon that is contributing to this. The nonspecific T2 hyperintensities are less likely to be contributing to the presentation. We do also want to exclude any possible intracranial viral encephalitis if her mentation does not improve after correcting the metabolic disturbance. Please hold the heparin subcu injection tomorrow morning and we can do the lumbar puncture especially if she does not improve or her white count continue to elevate. I discussed these findings with the providers in the ICU. I will continue to follow. Please continue neuro checks every 4 hours. Monitor for any seizure activity. Please contact me for any worsening of her neurological function. I spent a total of 40 minutes and 50% was spent reviewing the medical records, examining the patient, and discussing the care with the primary team. [id number]/[facility] #: [id number] THUY
--- NOTE | 2018-03-23 07:43 | RAD ---
INDICATION: Hypoxia COMPARISON: March 21, 2018 TECHNIQUE: An AP portable view obtained at 2334 hours is submitted. FINDINGS: Bones/Soft Tissues: There are no acute bony findings. Cardiomediastinal: The cardiomediastinal silhouette is normal. Lungs: There is airspace disease right lung base with right-sided pleural effusion. The left lung is clear. Pleura: Right-sided effusion is noted above. Other: None IMPRESSION: AIRSPACE DISEASE RIGHT LUNG BASE WITH EFFUSION. THERE IS MILD WORSENING. SUGGEST CONTINUED FOLLOW-UP
[2018-03-23] MEDS ORDERED: Thiamine IV* 100 MG/ML 2 ML VIAL IV ONE (09:41)
[2018-03-23] MEDS ORDERED: Magnesium Sulfate 2 GM IV* 2 GM/50 ML BAG IVPB ONE (09:42)
[2018-03-23] MEDS ORDERED: Potassium Phosphate IV* 15 MMOLE in NS 0.9% 250 ML* 250 ML IVPB ONE (09:42)
[2018-03-23] MEDS ORDERED: Levofloxacin 500 MG IVPREMIX(* 500 MG/100 ML BAG IVPB SCH (10:00)
[2018-03-23] MEDS: Aspirin SUPP* 300 MG PR SCH (10:45)
[2018-03-23] MEDS: Hydrocortisone INJ* 100 MG VIAL IV SCH ×2 (10:56→18:30)
[2018-03-23] MEDS ORDERED: Thiamine IV* 100 MG in NS 0.9% 50 ML* 50 ML IV ONE (11:00)
[2018-03-23] MEDS ORDERED: Furosemide IV* 10 MG/ML 2 ML VIAL (20 MG) IV SLOW PU ONE (11:00)
--- NOTE | 2018-03-23 11:07 | PN ---
Progress Note - Progress Note Date of Service: 03/23/18 Note: CRITICAL CARE MEDICINE Date: 03/23/18 Time: 955 SUBJECTIVE: Patient seen and examined. bipap overnight and off this am. abg fine PHYSICAL EXAM: thin, frail Vital Signs: Reviewed. stable. Neurologic: encephalopathic. pupils 1mm. moves all ext to pain and can localize a little quicker then yesterday but not completing to source' not opening eyes. more moaning today. HEENT: pupils equal. Sclera anicteric. Trachea midline. Mild secretions better Cardiovascular: S1 S2 Respiratory: dec R >L; comfortable phases Abdomen: Soft, nt. large incision intact Extremities: Warm; dep edema LABS: Reviewed. IMAGING: Reviewed. MEDICATIONS: Reviewed. ASSESSMENT: 77 F Acute encephalopathy - daughter related that pre-surgery pt was sleeping about 18hours a day Post operative changes post recent R nephrectomy Acute delirium Component of SIADH Hypothyroid Potential relative adrenal insuff b/l Pleural effusions PLAN: Neurologic: Neuro f/u appreciated; agree with LP. Wouldn't expect bacterial, but carcinomatosis potential, viral even but more needing to r/o Cardiovascular: perfusing. vol status up interstialy with dep fluid. Mobilize with lasix. npo and therefore fluid restricted Respiratory: O2 suppl. can consider thora if unable to mobilize fluid but would expect transudative. if not tolerating resp status however may consider for therapeutic benefit. Gastrointestinal: npo continued. sup Renal/Metabolic: f/u Na, but much of this chronic in nature Infectious Disease: low grade temp. +/- aspiration. wbc did climb. Can cx and let argue to use levaquin to cover potential lung and even urinary source if were subclinical given her acuity Hematology: stable. Endocrine: glu blunted with ssi. T4 replacement continued and add hydrocortisone. As much as this does not seem like myxedema, if not responding and clinical course remains like this, we may need to escalate such tx Musculoskeletal: turn and position. wound care Psych/Social: daughter updated yesterday; spiritual care eval Disposition: ICU Code Status: Full Critical Care Time: 30min Janna Grigsby DO
[2018-03-23] MEDS ORDERED: NS 0.9% 250 ML* 250 ML ONE (13:23)
[2018-03-23] MEDS ORDERED: Lidocaine 1% INJ* 10 MG/ML 30 ML SDV ONE (13:47)
[2018-03-23] MEDS ORDERED: Vancomycin per Pharmacy* NOTE FOLLOW UP PRN (15:45)
[2018-03-23] MEDS ORDERED: Vancomycin(*) 750 MG in NS 0.9% 250 ML* 250 ML IVPB ONE (16:00)
--- NOTE | 2018-03-23 16:30 | BRIEFOPN ---
Brief Operative Note - Surgery Procedures: Lumbar puncture was done at bedside. Procedure note was dictated. I reviewed the CSF results which showed an elevated WBC, neutrophil predominance , increase nucleated cells, and mild elevation in protein and RBC. The fluid was clear and the CSF pressure was low with normal glucose, no consistent with bacterial meningitis. Spoke to Dr. Grigsby and we have agreed to start empiric antibiotics and antiviral therapy until CSF cultures and HSV PCR comes back. Other d/d carcinomatous meningitis is considered. There wasn't enough CSF to run a cytology. If the cultures are negative, we will reassess for that diagnosis and consider a repeat LP if needed. I discussed the findings with the patient's daughter Maryan Boss who was at bedside this afternoon. Please contact me for any questions or concerns. Mary Greene MD
[2018-03-23] MEDS: CEFTRIAXONE IVPB SCH (17:18)
[2018-03-23] MEDS: NS 0.9% IVPB SCH ×2 (17:18→18:18)
[2018-03-23] MEDS: ACYCLOVIR IVPB SCH (18:18)
[2018-03-24] MEDS: Insulin LISPRO* 1 UNITS UNIT SUBCUT SCH ×6 (01:24→20:30)
[2018-03-24] MEDS: Hydrocortisone INJ* 100 MG VIAL IV SCH ×3 (01:24→18:01)
--- NOTE | 2018-03-24 01:34 | PN ---
INPATIENT NEUROLOGY PROGRESS NOTE: DATE OF SERVICE: 03/23/18 PRIMARY PROVIDER: Dr. Michael Grigsby. Neurology is following to evaluate and for management and recommendation of the patient's encephalopathy. CHIEF COMPLAINT: Confusion. SUBJECTIVE: There has been reported slight clinical change overnight. The patient's respiratory status declined requiring her to be placed on BiPAP. She was having desaturation during the evening before placing the BiPAP. Chest x- ray was obtained and there was a concern for worsening effusion on the right. There is a bedside aide available currently monitoring the patient for any possible vomiting. According to the bedside nurse, the patient appears to be more purposeful since starting the BiPAP. I agree with the assessment as she is less rigid and freely moving her arms and legs. LABORATORY DATA AND IMAGING: Overnight, the patient's WBC increased to 20,000 from 14,000. Platelet count is 393. Sodium is 119, chloride is 88, glucose of 164, calcium 8.7, ammonia 31. I did review her previous labs and her TSH on 07/29 was 13.46. There is a free T4 level pending. MRI of brain that was done yesterday showed diffuse nonspecific T2 hyperintensities. I personally reviewed the EEG that was obtained on 03/21/18. There was moderate -to-severe encephalopathy due to nearly continuous delta slowing. MEDICATIONS: 1. Aspirin. 2. Dextrose. 3. Furosemide. 4. Heparin. 5. Hydrocortisone. 6. Insulin. 7. Levofloxacin 500 mg started today. 8. Magnesium sulfate. 9. Thiamine. REVIEW OF SYSTEMS: Unable to obtain as the patient is confused and noncooperative with the examiner. PHYSICAL EXAMINATION: Vitals: Temperature is 100.9, respiratory rate of 15, pulse rate of 72, oxygen saturation is 100% on BiPAP, blood pressure of 124/64. General: Ill-appearing frail female, in no acute distress. She has a BiPAP mask on. Head is atraumatic, normocephalic without any obvious abnormalities. Eyes: Conjunctivae and corneas are clear. Neck is supple and symmetrical with no meningeal signs such as negative Brudzinski's and Kernig's signs. Lungs are diminished breath sounds in bibasilar area, right more than left. Cardiovascular: Regular rhythm. Normal S1, S2. Neurological Examination: Mental status, the patient is encephalopathic and is not awake at this time. She does not answer any questioning. She has her eyes closed. Cranial nerves, there is improvement in the pinpoint pupil as the right pupil is measuring 3 mm , left pupil measuring 2 mm constricting to 1.5 to 2 mm bilaterally. No facial asymmetry. Motor: Flexion of the elbows and knees to distal noxious stimuli bilaterally and symmetrically. She was spontaneously moving the right arm. Reflexes are 2+ in the brachioradialis, biceps, triceps and patella and 0 at the ankles. She has bilateral extensor plantar responses. Sensation: Localized to noxious stimuli. Coordination and gait were not assessed due to the patient's poor mental status. ASSESSMENT: 1. Acute metabolic and infectious encephalopathy. 2. Cervical spondylosis with myelopathy. 3. Hyponatremia. 4. Leukocytosis. 5. Abnormal TSH. This is a complicated case. There has been slight improvement in the motor function as she is less rigid today as well as seems to have some more purposeful movement. This all initiated after she was started on the BiPAP. Therefore, I suspect that there is a respiratory etiology driving her encephalopathy. I wonder if she has any infectious source such as an underlying pneumonia being masked by the pleural effusion. I will defer the metabolic component to the primary team. I would still like to proceed with doing a lumbar puncture to completely exclude any intracranial pathology that can be contributing to her encephalopathy, although I do not suspect this is the underlying problem. In addition, I did review her previous EEG, which did not show any epileptiform abnormalities, but she did have a moderate-severe degree of encephalopathy, which can be seen with a metabolic disturbance or hypoxic etiology. There is a pending free T4 level. Please continue to monitor for any seizure activity. Neuro checks every 4 hours. Continue excellent supportive care. I will discuss with the primary team regarding further evaluation of the pleural effusion, possible thoracentesis to evaluate the fluid. I will continue to follow. TIME SPENT: I spent a total of 35 minutes and greater than 50% of that was spent directly reviewing the medical chart, examining the patient and discussing the treatment plan and prognosis. Her prognosis continues to be guarded. I can do a lumbar puncture 6-8 hours after the last heparin, DVT prophylaxis infusion. I have discussed this with the nurse, and if approved by the primary team, we will plan on doing the lumbar puncture later this afternoon. [id number]/[facility] #: [id number] [facility]
[2018-03-24] MEDS: NS 0.9% IVPB SCH ×4 (03:43→18:01)
[2018-03-24] MEDS: CEFTRIAXONE IVPB SCH ×2 (03:43→17:04)
[2018-03-24] MEDS: ACYCLOVIR IVPB SCH ×2 (05:05→18:01)
[2018-03-24 05:39] LABS: ABS Basophils 0 10^3/ul (0-0.2); ABS Eosinophils 0 10^3/ul (0-0.6); ABS Lymphocytes 0.3 10^3/ul (1.0-4.8); ABS Monocytes 0.2 10^3/ul (0-0.8); ABS Neutrophils 9.2 10^3/ul (1.5-7.7); ABS Nucleated RBC 0 10^3/ul; Eosinophil % 0 % (0-6); Hematocrit 31 % (35-47); Hemoglobin 10.4 g/dl (12.0-16.0); Mean Corpuscular HGB Conc 34 g/dl (31-36); Mean Corpuscular Hemoglobin 30 pg (27-31); Mean Corpuscular Volume 88 fL (80-97); Mean Platelet Volume 7.1 um3 (7.4-10.4); Nucleated Red Blood Cells % 0; Platelet Count 374 10^3/ul (150-450); Red Blood Count 3.48 10^6/ul (4.00-5.40); Red Cell Distribution Width 18 % (10.5-15); White Blood Count 9.7 10^3/ul (3.5-10.8)
[2018-03-24 05:55] LABS: EGFR Non-African American 56.9 (>60)
[2018-03-24] MEDS: Levothyroxine INJ* 100 MCG/5 ML VIAL IV SCH (06:13)
[2018-03-24] MEDS: Heparin VIAL(*) 5000 UNITS/ML VIAL (FIVE THOUSAND) SUBCUT SCH ×3 (06:13→20:06)
[2018-03-24] MEDS: Vancomycin(*) 500 MG in NS 0.9% 250 ML* 250 ML IVPB SCH ×2 (06:24→18:21)
--- NOTE | 2018-03-24 07:11 | EEG ---
ELECTROENCEPHALOGRAPHY: DATE OF STUDY: PATIENT OF: Dr. Garnett. HISTORY: This is a 77-year-old woman being evaluated for confusion and agitation. This study was don e after it was reported that she may have had an episode of posturing. MEDICATIONS: Include Keppra, magnesium, Ativan, and morphine acutely. INTERPRETATION: With the patient moaning and obtunded, background consists of diffuse beta and theta range frequencies of low to moderate amplitude. Muscle movement artifact are noted. No epileptifor m potentials, focal abnormalities, or major asymmetries of background are present. IMPRESSION: This obtunded EEG shows prominent beta activity which may be secondary to the medication s the patient is consuming. There is some diffuse slowing which is consistent with the encephalopath y, but no specific epileptiform potentials or focal abnormalities are present. [id number]/[facility] #: [id number]
--- NOTE | 2018-03-24 09:09 | PRO ---
LUMBAR PUNCTURE PROCEDURE NOTE: DATE OF PROCEDURE: 03/23/18 CLINICAL INFORMATION: The patient is a 77-year-old female with persistent encephalopathy, leukocytos is, and low-grade fevers. The procedure was done to evaluate for viral encephalitis. INFORMED CONSENT: The procedure and its potential risks and complications were discussed with the richard mary's daughter, Radha Boss, via telephone. Verbal consent was obtained. The risks of infect ion, bleeding, and alternatives to this procedure were discussed in detail. DESCRIPTION OF PROCEDURE: A time-out was performed with Tacho, bedside nurse, to evaluate the corre ct patient, procedure, and site. The area was prepped and draped in the usual sterile fashion. Usin g landmarks, a 20-gauge spinal needle was inserted in the L4-L5 interspace. The stylette was removed and the open pressure was measured, but it was extremely low between 3 to 5 cm of water. 4 cc of cl ear fluid was collected and sent for cell differential and count, Gram stain, culture, glucose, prote in, and HSV PCR. The patient tolerated the procedure well. There was no blood loss or hematoma. Cytology was not sent as there was not enough CSF fluid. [id number]/[facility] #: [id number]
--- NOTE | 2018-03-24 09:13 | PN ---
Subjective Date of Service: 03/24/18 Interval History: Ms. Boss seems to be more awake since early this morning. She seems to be alert but has severe language deficit. This is a new problem. She repeats examiner. She is able to answer "yes" and "no" appropriately to simple questions (e.g., are you in the hospital?is your name Elizabeth? are you in pain?) . She denied any chest pain, SOB, or palpitation. She denied any headaches or visual disturbance. According to the bedside nurse, the patient has generalized extension and bizarre positioning of the left arm. She also has mild facial asymmetry with minimal eye opening on the right and mild facial droop on the left. The patient is unable to provide any history due to limitation in language and word finding difficulty. She is afebrile. WBC dropped from 20k to 9k. Sodium increased from 119 to 124. She has received 2 doses of Acyclovir. Objective Active Medications: Aspirin (Asa Supp*) 300 mg SD DAILY [facility] Last Admin: 03/23/18 10:45 Dose: 300 mg Dextrose (D50w Syringe 50 Ml*) 12.5 gm IV PUSH .FOR FS < 60 - SS PRN PRN Reason: FS < 60 Heparin Sodium (Porcine) (Heparin Vial(*)) 5,000 units SUBCUT Q8HR [facility] Last Admin: 03/24/18 06:13 Dose: 5,000 units Hydrocortisone Sodium Succinate (Solu-Cortef*) 50 mg IV Q8H [facility] Last Admin: 03/24/18 01:24 Dose: 50 mg Sodium Chloride (Ns 0.9% 1000 Ml*) 1,000 mls @ 100 mls/hr IV PER RATE [facility] Last Admin: 03/23/18 17:18 Dose: 100 mls/hr Ceftriaxone Sodium 2 gm/ (Sodium Chloride) 100 mls @ 200 mls/hr IVPB Q12H [facility] Last Admin: 03/24/18 03:43 Dose: 200 mls/hr Acyclovir Sodium 475 mg/ (Sodium Chloride) 109.5 mls @ 109.5 mls/hr IVPB Q12H [facility] Last Admin: 03/24/18 05:05 Dose: 109.5 mls/hr Vancomycin HCl 500 mg/ Sodium (Chloride) 250 mls @ 166.667 mls/hr IVPB Q12H [facility] Last Admin: 03/24/18 06:24 Dose: 166.667 mls/hr Insulin Human Lispro (Humalog*) 0 units SUBCUT FS Q4 ICU ISELA PRN Reason: Protocol Last Admin: 03/24/18 08:02 Dose: 2 units Levothyroxine Sodium (Synthroid Inj*) 75 mcg IV 0600 [facility] Last Admin: 03/24/18 06:13 Dose: 75 mcg Morphine Sulfate (Morphine Vial*) 2 mg IV Q4H PRN PRN Reason: PAIN - MILD Last Admin: 03/22/18 10:58 Dose: 2 mg Pharmacy Consult (Vancomycin Per Pharmacy*) 1 note FOLLOW UP . PRN PRN Reason: PER PROTOCOL Pharmacy Profile Note (Vancomycin Trough Check) 1 note FOLLOW UP 05 ONE Stop: 03/25/18 05:31 Vital Signs 03/23/18 03/23/18 03/23/18 10:00 10:01 11:00 Temperature Pulse Rate 72 69 80 Respiratory 15 12 12 Rate Blood Pressure 140/62 138/64 (mmHg) O2 Sat by Pulse 97 97 94 Oximetry 03/23/18 03/23/18 03/23/18 12:00 13:00 14:00 Temperature 99.7 F Pulse Rate 89 76 87 Respiratory 17 18 20 Rate Blood Pressure (mmHg) O2 Sat by Pulse 95 94 99 Oximetry 03/23/18 03/23/18 03/23/18 15:00 16:00 17:00 Temperature 97.6 F Pulse Rate 70 70 65 Respiratory 14 15 17 Rate Blood Pressure (mmHg) O2 Sat by Pulse 100 99 99 Oximetry 03/23/18 03/23/18 03/23/18 18:00 18:16 19:00 Temperature Pulse Rate 68 71 74 Respiratory 12 9 15 Rate Blood Pressure 107/60 123/55 (mmHg) O2 Sat by Pulse 97 97 96 Oximetry 03/23/18 03/23/18 03/23/18 19:38 20:00 21:00 Temperature 98.1 F Pulse Rate 85 78 Respiratory 15 13 Rate Blood Pressure 123/63 (mmHg) O2 Sat by Pulse 96 95 Oximetry 03/23/18 03/23/18 03/23/18 22:00 22:10 22:13 Temperature Pulse Rate 72 72 Respiratory 13 18 19 Rate Blood Pressure 124/67 (mmHg) O2 Sat by Pulse 95 97 Oximetry 03/23/18 03/23/1818 23:00 23:48 00:00 Temperature 97.9 F Pulse Rate 60 61 Respiratory 12 10 Rate Blood Pressure 101/48 105/47 (mmHg) O2 Sat by Pulse 96 98 Oximetry 03/24/18 03/24/18 03/24/18 01:00 02:00 03:00 Temperature Pulse Rate 60 54 60 Respiratory 12 13 16 Rate Blood Pressure 108/45 102/50 127/56 (mmHg) O2 Sat by Pulse 99 99 97 Oximetry 03/24/18 03/24/18 03/24/18 03:58 04:00 04:42 Temperature 96.9 F Pulse Rate 71 Respiratory 15 12 Rate Blood Pressure 124/67 (mmHg) O2 Sat by Pulse 98 Oximetry 03/24/18 03/24/18 03/24/18 05:00 05:14 06:00 Temperature Pulse Rate 70 61 Respiratory 15 12 9 Rate Blood Pressure 127/64 111/48 (mmHg) O2 Sat by Pulse 96 97 Oximetry 03/24/18 03/24/18 06:25 07:00 Temperature Pulse Rate 54 Respiratory 10 7 Rate Blood Pressure 125/53 (mmHg) O2 Sat by Pulse 99 Oximetry Oxygen Devices in Use Now: Nasal Cannula Neurology Exam: General: Ill appearing frail female in no acute distress. She is smiling and laughing at examiner inappropriately. She is on droplet isolation. HEENT: Normocephelic/atraumstic, sclera anicteric, mucous membranes moist Neck: Supple Chest: diminished breath sounds right greater than left. Cardiovascular: Regular rate and rhythm without murmurs, rubs, gallops Abdomen: Soft, nontender/nondistended Extremities: No clubing, cyanosis, or edema Neurological Findings: Awake and appears minimally alert to self and location. She has moderate-severe psychmotor delay. She has perseveration of speech and seems to have expressive aphasia. Cranial Nerve: PEERL, EOM intact as she can track examiner, no nystagmus, mild left facial droop. She is unable to follow complex command to check other shoe reconditioner. Motor: She moves the upper more than lower extremities. She was not following command but did move the upper extremities spontaneously. She continues to have increase in tone in all 4 extremities worse in the lower extremities. Withdrawal briskly to distal noxious stimuli on all 4 extremities. Sensation: localized to minimal distal noxious stimuli Deep Tendon Reflex: 2+ symmetric in the upper/lower extremities, Babinski - extensor plantar response bilaterally Unable to perform coordination testing Gait: not assessed due to critical condition Result Diagrams: 03/24/18 05:26 03/24/18 05:26 Additional Lab and Data: Lab Results 03/21/18 03/21/18 Range/Units 15:26 15:34 WBC 7.0 (3.5-10.8) 10^3/ul RBC 4.35 (4.0-5.4) 10^6/ul Hgb 12.6 (12.0-16.0) g/dl Hct 38 (35-47) % MCV 87 (80-97) fL MCH 29 (27-31) pg MCHC 33 (31-36) g/dl RDW 18 H (10.5-15) % Plt Count 456 H (150-450) 10^3/ul MPV 6.9 L (7.4-10.4) um3 Neut % (Auto) 70.4 (38-83) % Lymph % (Auto) 16.1 L (25-47) % [place] % (Auto) 8.3 H (0-7) % Eos % (Auto) 3.9 (0-6) % Baso % (Auto) 1.3 (0-2) % Absolute Neuts (auto) 5.0 (1.5-7.7) 10^3/ul Absolute Lymphs (auto) 1.1 (1.0-4.8) 10^3/ul Absolute Monos (auto) 0.6 (0-0.8) 10^3/ul Absolute Eos (auto) 0.3 (0-0.6) 10^3/ul Absolute Basos (auto) 0.1 (0-0.2) 10^3/ul Absolute Nucleated RBC 0 10^3/ul Nucleated RBC % 0.1 POC Glucose (mg/dL) 59 L (70-100) mg/dL Microbiology and Other Data: Microbiology 03/23/18 14:00 CSF Gram Stain (Tube 3) - Final Cerebral Spinal Fluid 03/22/18 04:10 Nasal Screen MRSA (PCR)(SAMANTHA) - Final Nasal Mrsa Not Detected Assessment/Plan This is a complex case. 1. Acute encephalopathy- multifactorial. CSF analysis suggests an underlying PRO[employer]CH[employer] infection most likely viral encephalitis (glucose normal, fluid clear, normal to low CSF opening pressure, and gram stain shows no bacteria). The concern here is she may have HSV encephalitis. Pending HSV PCR. Acyclovir started yesterday. She is tolerating the dose. We will make sure she stays hydrated to prevent any URIEL. She has significant perseveration of speech and a component of receptive aphasia. There was no stroke on MRI. I reviewed the MRI again today and cannot appreciate any changes in the left fronto-temporal region. We may have to repeat the study depending on her progression. Another d/d includes metabolic encephalopathy or complex partial seizures. Sodium has improved from yesterday. This could also be contributing to her waxing and waning sensorium. It seems like her confusion worsens when sodium is below 120. We can discontinue the droplet isolation and the antibiotics used for meningitis. 2. Hyponatremia- slowly correcting. Discussed case with Dr. Grigsby Status and Disposition: ICU
[2018-03-24] MEDS ORDERED: Furosemide IV* 10 MG/ML 2 ML VIAL (20 MG) IV SLOW PU ONE (09:46)
[2018-03-24] MEDS: Aspirin SUPP* 300 MG PR SCH (09:58)
[2018-03-24] MEDS ORDERED: Levofloxacin 250 MG IVPREMX(*) 250 MG/50 ML BAG IVPB SCH (10:00)
--- NOTE | 2018-03-24 12:45 | PN ---
Progress Note - Progress Note Date of Service: 03/24/18 Note: CRITICAL CARE MEDICINE Date: 03/24/18 Time: 1200 SUBJECTIVE: Patient seen and examined. PHYSICAL EXAM: thin, frail Vital Signs: Reviewed. stable. Neurologic: encephalopathy much better. able to communicate although not oriented yet and question how much delirium vs likely dementia HEENT: pupils equal. Sclera anicteric. Trachea midline. Cardiovascular: S1 S2 Respiratory: mild dec R >L; comfortable phases Abdomen: Soft, nt. large incision intact Extremities: Warm; dep edema better LABS: Reviewed. IMAGING: Reviewed. MEDICATIONS: Reviewed. ASSESSMENT: 77 F Acute encephalopathy - improveing. Degree of delirium vs likely dementia amount unclear Component of SIADH perhaps Hypothyroid Relative adrenal insuff b/l Pleural effusions Tx for meningitis: higher porntial of non hsv viral encephalitis or carcinomatosis/paraneoplastic perhaps > bacterial PLAN: Neurologic: Neuro following. much better post adjustments yesterday. repeat eeg about same Cardiovascular: perfusing. vol status up interstitialy still and continue lasix mobilization and fluid restriction. Respiratory: doing fine. airway much better. Gastrointestinal: bedside swallow screen and perhaps tomorrow will be ready for official swallow. otherwise may be needing temporary ngt for feeds. sup Renal/Metabolic: Na better and see if she can maintain herself 125-130s with lasix and fluid restrict Infectious Disease: abx as is until cx return. consider ID if needed. Hematology: stable. Endocrine: glu ok.T4 replacement. steroid pulse. Musculoskeletal: turn and position. wound care. pt soon Psych/Social: will look to update daughter. spiritual care to f/u. Disposition: ok for floor Code Status: Full Critical Care Time: 25min Janna Grigsby DO
[2018-03-24] MEDS: NS 0.9% 1000 ML* 1,000 ML IV SCH (17:04)
[2018-03-25] MEDS: Insulin LISPRO* 1 UNITS UNIT SUBCUT SCH ×6 (00:42→22:11)
[2018-03-25] MEDS: Hydrocortisone INJ* 100 MG VIAL IV SCH ×3 (01:10→17:18)
[2018-03-25] MEDS: CEFTRIAXONE IVPB SCH ×2 (04:37→16:11)
[2018-03-25] MEDS: NS 0.9% IVPB SCH ×3 (04:37→16:11)
[2018-03-25] MEDS: ACYCLOVIR IVPB SCH (05:16)
[2018-03-25] MEDS: NS 0.9% 1000 ML* 1,000 ML IV SCH ×2 (05:16→21:34)
[2018-03-25] MEDS ORDERED: Vancomycin Trough Check NOTE FOLLOW UP ONE (05:30)
[2018-03-25 06:16] LABS: EGFR Non-African American 66.5 (>60)
[2018-03-25] MEDS: Levothyroxine INJ* 100 MCG/5 ML VIAL IV SCH (06:21)
[2018-03-25 06:22] LABS: Vancomycin Trough 9.5 mcg/mL
[2018-03-25] MEDS: Heparin VIAL(*) 5000 UNITS/ML VIAL (FIVE THOUSAND) SUBCUT SCH ×3 (06:23→22:11)
[2018-03-25] MEDS: Vancomycin(*) 500 MG in NS 0.9% 250 ML* 250 ML IVPB SCH (06:26)
--- NOTE | 2018-03-25 07:54 | EEG ---
ELECTROENCEPHALOGRAPHY: DATE OF STUDY: 03/24/18 DATE READ: 03/24/18 REFERRING PHYSICIAN: Dr. Mary Greene. MEDICATIONS: 1. Hydrocortisone. 2. Humalog. 3. Heparin. 4. Ceftriaxone. 5. Zovirax. 6. Vancomycin. 7. Synthroid. 8. Morphine. CLINICAL PROBLEM: Ms. Elizabeth Boss is a 77-year-old female with history of encephalopathy. This EEG was obtained to evaluate for epileptiform abnormalities. CLINICAL STATE: Encephalopathic. REPORT: The background lacked organization of clearly defined anterior- posterior voltage and frequency gradients. There was no discernible posterior dominant rhythm. Instead, the background consisted of low-amplitude mixed frequency slowing in the delta and theta range with superimposed low voltage beta frequency. At her best, there was a brief epoch that showed some theta rhythm of 4 to 5 Hz for 1-2 seconds. There were no epileptiform abnormalities or electrographic seizures. There was emergence of some faster frequency with verbal and tactile stimulation. Hyperventilation and photic stimulations were not performed. Throughout the recording, there were no epileptiform discharges. CLINICAL IMPRESSION: This is an abnormal EEG due to the lack of appropriate organization and low voltage diffuse mixed frequency slowing. Reactivity was seen throughout the recording. These findings are suggestive of a nonspecific moderate diffuse encephalopathy, which can be seen in the setting of toxic- metabolic disturbance, cerebral atrophy, hypoxic encephalopathy, or as a result of medication effect. There were no electrographic seizures. [id number]/[facility] #: [id number] [facility]
[2018-03-25] MEDS: KCL 20 MEQ/100 ML IVPREMIX* 20 MEQ/100 ML BAG IV SCH ×3 (09:02→19:41)
[2018-03-25] MEDS: Aspirin SUPP* 300 MG PR SCH (09:06)
--- NOTE | 2018-03-25 10:20 | PN ---
Subjective Date of Service: 03/25/18 Interval History: Mrs. Elizabeth Boss is awake this morning. She continues to show minimal improvement of her cognition which seems to correlate with the correction of her sodium. However, she has significant language impairment with intact cognition. She is able to answer with yes and no questions correctly. She has a new finding of lateral gaze palsy on the left eye today which she did not have on previous days. She appears to be having visual hallucinations. She was pointing at the ceiling today and laughing. ROS: she denied any headaches, visual disturbance, or focal weakness although I question if she is in a state of providing a detailed and accurate ROS. Objective Active Medications: Aspirin (Asa Supp*) 300 mg NM DAILY [facility] BEDS AT [facility] Last Admin: 03/25/18 09:06 Dose: 300 mg Dextrose (D50w Syringe 50 Ml*) 12.5 gm IV PUSH .FOR FS < 60 - SS PRN PRN Reason: FS < 60 Heparin Sodium (Porcine) (Heparin Vial(*)) 5,000 units SUBCUT Q8HR [facility]S [facility]CLUDE 234 BEDS AT THE [facility] Last Admin: 03/25/18 06:23 Dose: 5,000 units Hydrocortisone Sodium Succinate (Solu-Cortef*) 50 mg IV Q8H [facility]S INCLUDE 234 BEDS AT THE [facility] Last Admin: 03/25/18 09:02 Dose: 50 mg Sodium Chloride (Ns 0.9% 1000 Ml*) 1,000 mls @ 100 mls/hr IV PER RATE [facility]S INCLUDE 234 BEDS AT [facility] Last Admin: 03/25/18 05:16 Dose: 100 mls/hr Ceftriaxone Sodium 2 gm/ (Sodium Chloride) 100 mls @ 200 mls/hr IVPB Q12H [facility]S [facility]CLUDE 234 BEDS AT THE [facility] Last Admin: 03/25/18 04:37 Dose: 200 mls/hr Acyclovir Sodium 475 mg/ (Sodium Chloride) 109.5 mls @ 109.5 mls/hr IVPB Q12H [facility]S [facility]CLUDE 234 BEDS AT THE [facility] Last Admin: 03/25/18 05:16 Dose: 109.5 mls/hr Potassium Chloride (Potassium Chloride 20 Meq/100 Ml Ivpremix*) 20 meq in 100 mls @ 50 mls/hr IV Q2H [facility]S INCLUDE 234 BEDS AT THE [facility] Stop: 03/25/18 14:59 Last Admin: 03/25/18 09:02 Dose: 50 mls/hr Vancomycin HCl 750 mg/ Sodium (Chloride) 250 mls @ 166.667 mls/hr IVPB Q12H COUNTS INCLUDE 234 BEDS AT THE [facility] Insulin Human Lispro (Humalog*) 0 units SUBCUT Q6H COUNTS INCLUDE 234 BEDS AT THE [facility] PRN Reason: Protocol Last Admin: 03/25/18 08:40 Dose: Not Given Levothyroxine Sodium (Synthroid Inj*) 75 mcg IV 0600 COUNTS INCLUDE 234 BEDS AT THE [facility] Last Admin: 03/25/18 06:21 Dose: 75 mcg Morphine Sulfate (Morphine Vial*) 2 mg IV Q4H PRN PRN Reason: PAIN - MILD Last Admin: 03/22/18 10:58 Dose: 2 mg Pharmacy Consult (Vancomycin Per Pharmacy*) 1 note FOLLOW UP . PRN PRN Reason: PER PROTOCOL Pharmacy Profile Note (Vancomycin Trough Check) 1 note FOLLOW UP 1330 ONE Stop: 03/27/18 13:31 Vital Signs 03/24/18 03/24/18 03/24/18 10:14 11:00 12:00 Temperature 97.4 F Pulse Rate 63 76 95 Respiratory 14 16 16 Rate Blood Pressure 148/65 162/80 (mmHg) O2 Sat by Pulse 96 95 94 Oximetry 03/24/18 03/24/18 03/24/18 12:01 13:00 14:00 Temperature Pulse Rate 89 77 58 Respiratory 20 14 Rate Blood Pressure 133/82 (mmHg) O2 Sat by Pulse 96 94 95 Oximetry 03/24/18 03/24/18 03/24/18 15:09 16:15 18:52 Temperature 97.0 F Pulse Rate 97 70 Respiratory 18 18 Rate Blood Pressure 166/91 134/60 144/55 (mmHg) O2 Sat by Pulse 97 96 Oximetry 03/24/18 03/24/18 03/24/18 19:31 20:00 23:07 Temperature 96.8 F Pulse Rate 67 Respiratory 18 16 Rate Blood Pressure 140/67 (mmHg) O2 Sat by Pulse 94 Oximetry 03/25/18 03/25/18 03/25/18 01:14 03:07 08:09 Temperature Pulse Rate 81 120 Respiratory 18 16 Rate Blood Pressure 166/62 (mmHg) O2 Sat by Pulse 95 94 Oximetry 03/25/18 03/25/18 08:11 08:30 Temperature 98.9 F Pulse Rate 115 Respiratory 25 Rate Blood Pressure 196/88 158/62 (mmHg) O2 Sat by Pulse 95 Oximetry Oxygen Devices in Use Now: None, Nasal Cannula - HSV I&II PCR are negative Neurology Exam: General: Moderately ill appearing disheveled female in no acute distress. She is inappropriately smiling throughout the interview. HEENT: Normocephelic/atraumstic, sclera anicteric Neck: Supple Chest: Clear to auscultation bilaterally Cardiovascular: Regular rate and rhythm without murmurs, rubs, gallops Abdomen: Soft, non-tender/non-distended Extremities: No clubbing, cyanosis, or edema Neurological Findings: Awake, alert to self and place. She has perseveration and significant aphasia. She is able to repeat but not name with impairment in fluency. Cranial Nerve: PERRL, left lateral rectus palsy, no facial asymmetry. Motor: moves all extremities to command, but requires cueing Sensation: localizes to pain by withdrawing to distal noxious stimuli. DTR: 2+ symmetric in the upper/lower extremities, Babinski - extensor plantar response bilaterally Cerebellum: n/a Gait: patient cannot cooperate Result Diagrams: 03/24/18 05:26 03/25/18 05:36 Additional Lab and Data: Lab Results 03/21/18 03/21/18 Range/Units 15:26 15:34 WBC 7.0 (3.5-10.8) 10^3/ul RBC 4.35 (4.0-5.4) 10^6/ul Hgb 12.6 (12.0-16.0) g/dl Hct 38 (35-47) % MCV 87 (80-97) fL MCH 29 (27-31) pg MCHC 33 (31-36) g/dl RDW 18 H (10.5-15) % Plt Count 456 H (150-450) 10^3/ul MPV 6.9 L (7.4-10.4) um3 Neut % (Auto) 70.4 (38-83) % Lymph % (Auto) 16.1 L (25-47) % [place] % (Auto) 8.3 H (0-7) % Eos % (Auto) 3.9 (0-6) % Baso % (Auto) 1.3 (0-2) % Absolute Neuts (auto) 5.0 (1.5-7.7) 10^3/ul Absolute Lymphs (auto) 1.1 (1.0-4.8) 10^3/ul Absolute Monos (auto) 0.6 (0-0.8) 10^3/ul Absolute Eos (auto) 0.3 (0-0.6) 10^3/ul Absolute Basos (auto) 0.1 (0-0.2) 10^3/ul Absolute Nucleated RBC 0 10^3/ul Nucleated RBC % 0.1 POC Glucose (mg/dL) 59 L (70-100) mg/dL Microbiology and Other Data: Microbiology 03/23/18 14:00 CSF Gram Stain (Tube 3) - Final Cerebral Spinal Fluid 03/22/18 04:10 Nasal Screen MRSA (PCR)(SAMANTHA) - Final Nasal Mrsa Not Detected Diagnostic Imaging: EEG from 03/24/2018: moderate encephalopathy. No epileptiform abnormalities. Assessment/Plan This is a complex case. 1. Acute encephalopathy- multifactorial and slowly improving but she continues to have significant cognitive impairment. This is not her baseline. I suspect the patient has underlying viral non-HSV encephalitis vs paraneoplastic vs metabolic encephalopathy. However, the metabolic disturbance is improving but she continues to have significant cognitive and psychiatric disturbance (visual hallucinations). She also has a left lateral rectus palsy today which was not seen in the past. Other differential diagnosis includes leptomeningeal carcinomatosis in the setting of cancer. I don't think she's having seizures since there has been no reported seizure activity and two previous EEGs have showed non-specific encephalopathy without any epileptiform abnormalities. Recommendations: - Ordered a repeat MRI brain WITH contrast to evaluate for metastatic disease or temporal lobe enhancement. I spoke with radiology and confirmed that the study should be done today. - Ordered LP under fluroscopy to obtain the following: cell count and diff, gram stain and culture, protein, glucose, cytology, cryptococcus, Lyme PCR, to check opening pressure, and to obtain antibody testing for NMDA, VGKC, and MARC given history of cancer and current acute psychiatric manifestation. I contacted IR to obtain this as I was unable to obtain enough CSF fluid from the previous LP attempt. The LP will be done tomorrow. - Ordered B12 level - Continue Neuro check every 4 hours - Please get her OOB to chair - Speech evaluation and advance her diet. The patient has had nothing to eat for 5 days. - Continue IV fluids - Fall precuations - I recommend discontinuing the acyclovir and any antibiotics that were started for suspected meningitis. The patient does not have bacterial meningitis. 2. Hyponatremia- slowly correcting. Cognition seems to be improving since sodium has been above 124. 3. Hyperglycemia- please make sure blood glucose stays below 200 4. Cervical spondylosis with myelopathy- continue supportive care. Further imaging can be done once her mentation improves. I will continue to follow. I spent a total of 40 minutes and 50% was spent arranging the above orders, examining the patient, discussing the treatment plan with the bedside nurse.
[2018-03-25] MEDS ORDERED: Thiamine IV* 500 MG in NS 0.9% 250 ML* 250 ML IV ONE (10:50)
[2018-03-25] MEDS ORDERED: Vancomycin(*) 750 MG in NS 0.9% 250 ML* 250 ML IVPB SCH (14:00)
[2018-03-25] MEDS ORDERED: Furosemide IV* 10 MG/ML 2 ML VIAL (20 MG) IV ONE (14:48)
--- NOTE | 2018-03-25 15:11 | PN ---
Hospitalist Progress Note Date of Service: 03/25/18 Pt seen and examined. Meds and labs reviewed. ROS: Pt unfortunately only able to answer yes or no; unable to reliably provide all 14 point ROS PHYSICAL EXAM: GEN APPEARANCE: Awake, not in acute distress HEENT: NC/AT, PERRLA, moist oral mucosa, (-) throat erythema NECK: Soft, supple, (-) cervical LAD, (-)JVD HEART: S1S2 WNL, RRR, No MRG CHEST: CTA, BL, GAE, No W/R/R ABD: Soft, ND/NT, NABS 4x Q EXT: No C/C/E SKIN: Warm to touch PSYCH: No active psychosis, hallucinations, depression, SI/HI ASSESSMENT AND PLAN: #Acute encephalopathy, multifactorial: -?underlying viral non-HSV encephalitis vs paraneoplastic vs metabolic encephalopathyvs. Leptomeningeal carcinomatosis -Left lateral rectus palsy today first seen by Dr. Greene was not seen in the past. -Per Dr. Greene, she's likely not having seizures since there has been no reported seizure activity and two previous EEGs have showed non-specific encephalopathy without any epileptiform abnormalities -Repeat lumbar tap and MRI of brain with contrast is currently pending to evaluate for metastatic disease or temporal lobe enhancement. -Speech eval recommends thin liquids and pureed foodwill place on a consistent carbohydrate diet -B12 pending #Hyponatremia, hypovolemic: -On review of H&P, pt had BL LE edema of 2+ and pt has received Lasix initially which was D/Cd and placed on IVF on 03/22 likely due to hypovolemic hyponatremia with improving levels -Will continue IVF and watchful waiting -Will give daily dose of Lasix and will continue to monitor sodium levelswill re-check at 10 PM tonight #Hypokalemia: -Corrected -Will continue to follow #Diabetes, uncontrolled: -Will adjust insulin sliding scale #DVTp: -Will decrease Heparin SQ to q12 given advanced age #Dispo: -As above
[2018-03-25] MEDS ORDERED: Gadoteridol* (CONTRAST) 279.3 MG/ML 10 ML IV ONE (16:25)
[2018-03-25] MEDS ORDERED: KCL 20 MEQ/100 ML IVPREMIX* 20 MEQ/100 ML BAG ONE (19:39)
[2018-03-25] MEDS: Morphine VIAL* 4 MG/ML VIAL (1 ml vial) IV PRN (21:27)
[2018-03-26] MEDS: Insulin LISPRO* 1 UNITS UNIT SUBCUT SCH ×4 (03:26→20:32)
[2018-03-26] MEDS: Hydrocortisone INJ* 100 MG VIAL IV SCH ×2 (03:30→10:50)
[2018-03-26] MEDS: Levothyroxine INJ* 100 MCG/5 ML VIAL IV SCH (05:33)
--- NOTE | 2018-03-26 06:22 | RAD ---
CPT II Codes: G9500 INDICATION: Altered mental status COMPARISON: CT abdomen and pelvis March 21, 2018 TECHNIQUE: The benefits and risks of the procedure were explained to the patient. The patient consented to the exam. A timeout was performed before beginning the procedure. The patient was prepped and draped in the usual sterile fashion. The patient was anesthetized with 1% lidocaine. Using fluoroscopic guidance a 20-gauge needle was placed within the thecal sac at the L4/L5 level without difficulty. The opening pressure measures 3 mm Hg. 12 mL of spinal fluid were removed and sent to the pathology lab for further evaluation. The patient tolerated the procedure without incident. The patient was returned to her inpatient hospital room in stable condition. IMPRESSION: LUMBAR PUNCTURE.
[2018-03-26 07:43] LABS: ABS Basophils 0 10^3/ul (0-0.2); ABS Eosinophils 0 10^3/ul (0-0.6); ABS Lymphocytes 0.3 10^3/ul (1.0-4.8); ABS Monocytes 0.5 10^3/ul (0-0.8); ABS Neutrophils 8.7 10^3/ul (1.5-7.7); ABS Nucleated RBC 0 10^3/ul; Eosinophil % 0 % (0-6); Hematocrit 33 % (35-47); Hemoglobin 11.3 g/dl (12.0-16.0); Lymphocyte % 3.5 % (25-47); Mean Corpuscular HGB Conc 34 g/dl (31-36); Mean Corpuscular Hemoglobin 30 pg (27-31); Mean Corpuscular Volume 87 fL (80-97); Nucleated Red Blood Cells % 0; Platelet Count 485 10^3/ul (150-450); Red Blood Count 3.77 10^6/ul (4.00-5.40); Red Cell Distribution Width 18 % (10.5-15); White Blood Count 9.5 10^3/ul (3.5-10.8)
[2018-03-26 08:00] LABS: EGFR Non-African American 78.3 (>60)
[2018-03-26] MEDS ORDERED: Magnesium Sulfate 2 GM IV* 2 GM/50 ML BAG IVPB ONE (08:12)
[2018-03-26] MEDS ORDERED: Potassium Chlor TAB* 20 MEQ TAB.ER PO STA (08:12)
[2018-03-26] MEDS ORDERED: Losartan TAB* 25 MG PO ONE (08:32)
[2018-03-26] MEDS: Heparin VIAL(*) 5000 UNITS/ML VIAL (FIVE THOUSAND) SUBCUT SCH ×2 (09:03→20:31)
[2018-03-26] MEDS: Aspirin SUPP* 300 MG PR SCH (09:03)
--- NOTE | 2018-03-26 09:25 | PN ---
Subjective Date of Service: 03/26/18 Interval History: Ms. Boss is more awake but less talkative today. She responds inconsistently to simple one step command (e.g., move your toes, show me one finger). She is still quiet encephalopathic which has been a constant problem. She had breakfast this morning but required feeding. She had no complication swallowing. She had the lumbar puncture under fluoroscopy yesterday. She did not cooperate with obtaining an MRI brain with contrast yesterday. She did receive the contrast though. ROS: unable to obtain due to degree of encephalopathy. Objective Active Medications: Aspirin (Asa Supp*) 300 mg PA DAILY [facility] Last Admin: 03/25/18 09:06 Dose: 300 mg Dextrose (D50w Syringe 50 Ml*) 12.5 gm IV PUSH .FOR FS < 60 - SS PRN PRN Reason: FS < 60 Heparin Sodium (Porcine) (Heparin Vial(*)) 5,000 units SUBCUT Q12HR [facility] Last Admin: 03/25/18 22:11 Dose: 5,000 units Hydrocortisone Sodium Succinate (Solu-Cortef*) 50 mg IV Q8H [facility] Last Admin: 03/26/18 03:30 Dose: 50 mg Sodium Chloride (Ns 0.9% 1000 Ml*) 1,000 mls @ 100 mls/hr IV PER RATE [facility] Last Admin: 03/25/18 21:34 Dose: 100 mls/hr Potassium Chloride (Potassium Chloride 20 Meq/100 Ml Ivpremix*) 20 meq in 100 mls @ 50 mls/hr IV Q2H [facility] Stop: 03/26/18 14:59 Insulin Human Lispro (Humalog*) 0 units SUBCUT Q6H ISELA PRN Reason: Protocol Last Admin: 03/26/18 08:49 Dose: Not Given Levothyroxine Sodium (Synthroid Inj*) 75 mcg IV 0600 [facility] Last Admin: 03/26/18 05:33 Dose: 75 mcg Morphine Sulfate (Morphine Vial*) 2 mg IV Q4H PRN PRN Reason: PAIN - MILD Last Admin: 03/25/18 21:27 Dose: 2 mg Vital Signs 03/25/18 03/25/18 03/25/18 11:09 19:20 20:00 Temperature 97.8 F Pulse Rate 71 95 Respiratory 18 20 18 Rate Blood Pressure 165/69 154/70 (mmHg) O2 Sat by Pulse 99 98 Oximetry 03/25/18 03/25/18 03/26/18 21:27 23:03 02:02 Temperature Pulse Rate 79 Respiratory 16 16 18 Rate Blood Pressure 164/64 (mmHg) O2 Sat by Pulse 95 Oximetry 03/26/18 03:07 Temperature Pulse Rate 63 Respiratory 16 Rate Blood Pressure 153/54 (mmHg) O2 Sat by Pulse 92 Oximetry Oxygen Devices in Use Now: None, Nasal Cannula Neurology Exam: General: Ill appearing female in no acute distress. She has inappropriate smiling. HEENT: Normocephelic/atraumstic. Nuchal rigidity but normal right and left head movements with assessed. Chest: Clear to auscultation bilaterally Cardiovascular: Regular rate and rhythm without murmurs, rubs, gallops Abdomen: Soft, nontender/nondistended Spine: no tenderness to deep palpation around the lumbar and thoracic paraspinal and spinous process Extremities: No clubbing, cyanosis, or edema Neurological Findings: Awake but not alert or oriented. She is nonverbal today but was persevered speech yesterdayj. She does not follow complex command. Cranial Nerve: She blinks to eye threat on both visual field. Pinpoint pupils sluggishly reactive bilaterally. She has MIRIAM on the left with lateral horizontal nystagmus on the right. No facial droop or asymmetry. Motor: Hypertonicity in all 4 extremities. She does flex elbow and knees to distal noxious stimuli. She moved her toes inconsistently to command and showed one finger to command. Sensation: Grimaces and has flexor withdrawal to noxious stimuli. Deep Tendon Reflex: 2+ symmetric in the upper extremities, 2+ knees and 0 at the ankles. She has mute plantar response today but extensor plantar response yesterday. Cerebellum: n/a Gait: n/a she does not follow complex command. Result Diagrams: 03/26/18 07:15 03/26/18 07:15 Additional Lab and Data: Lab Results 03/21/18 03/21/18 Range/Units 15:26 15:34 WBC 7.0 (3.5-10.8) 10^3/ul RBC 4.35 (4.0-5.4) 10^6/ul Hgb 12.6 (12.0-16.0) g/dl Hct 38 (35-47) % MCV 87 (80-97) fL MCH 29 (27-31) pg MCHC 33 (31-36) g/dl RDW 18 H (10.5-15) % Plt Count 456 H (150-450) 10^3/ul MPV 6.9 L (7.4-10.4) um3 Neut % (Auto) 70.4 (38-83) % Lymph % (Auto) 16.1 L (25-47) % [place] % (Auto) 8.3 H (0-7) % Eos % (Auto) 3.9 (0-6) % Baso % (Auto) 1.3 (0-2) % Absolute Neuts (auto) 5.0 (1.5-7.7) 10^3/ul Absolute Lymphs (auto) 1.1 (1.0-4.8) 10^3/ul Absolute Monos (auto) 0.6 (0-0.8) 10^3/ul Absolute Eos (auto) 0.3 (0-0.6) 10^3/ul Absolute Basos (auto) 0.1 (0-0.2) 10^3/ul Absolute Nucleated RBC 0 10^3/ul Nucleated RBC % 0.1 POC Glucose (mg/dL) 59 L (70-100) mg/dL Microbiology and Other Data: Microbiology 03/23/18 14:00 CSF Gram Stain (Tube 3) - Final Cerebral Spinal Fluid 03/22/18 04:10 Nasal Screen MRSA (PCR)(SAMANTHA) - Final Nasal Mrsa Not Detected Diagnostic Imaging: EEG from 03/24/2018: moderate encephalopathy. No epileptiform abnormalities. EEG 03/23/2018: read by Dr. Garnett. non-specific encephalopathy MRI brain without contrast on 03/22/2018: non-specific white matter changes with generalized cortical atrophy CT and CTA head without contrast on 03/21/2018: age appropriate chronic white matter changes and atrophy. No hemorrhage. CTA no large vessel occlusion or aneurysm. There was R>L pleural large pleural effusions. Assessment/Plan This is a complex case. Ms. Boss is a 77-year-old female who lived in an assisted living facility and was functionally independent on ADLs prior to her hospitalization for a nephrectomy done on 03/03/2018, who had an episode of delirium at the OSH that resolved after the removal of an epidural catheter used for pain. She has has recurrence of severe encephalopathy on 03/21/2018. She was found to have hyponatremia and slight hypoxia on presentation that improved. She has large pleural effusions. Neurological examination now shows evidence of ophthalmoparesis and persistent hypoactive delirium. A lumbar puncture initially showed evidence of elevated WBC, neutrophil predominance, and elevated protein. She had negative HSV1-2 PCR. An MRI brain without contrast was negative for acute intracranial process. She was unable to cooperate with a repeat MRI brain with contrast yesterday. She had an LP repeated yesterday as not enough CSF fluid was obtained during the first LP. She still has elevated WBC with neutrophil and some lymphocytic predominance. Protein is also elevated with corrected protein of 97. The patient had received 2.5-3 days worth of ceftriaxone and acyclovir and her SERUM WBC dropped from 20K to 9K. Her mentation improved but she still has significant cognitive deficits. Important to add is that the CSF culture is negative so far. The differential diagnosis here is acute-subacute brainstem encephalitis which can be caused by an underlying infection or autoimmune condition. The fact that she had an elevated serum WBC that dropped with antibiotic can suggest a bacterial infection such as Listeria or Whipple disease that may have been triggered by her immunosuppressed state. Other differential diagnosis include paraneoplastic condition given her cancer or Wernicke's encephalopathy in the setting of poor nutritional status. I discussed the case with Tamir Galeas and Dr. Ferrell. Dr. Ferrell was concerned about a focal epidural abscess in the setting of recent epidural catheter placement which could have spread to the BUSINESS OBJECTS. Recommendations: - Ordered an MRI brain with contrast to evaluate for any inflammatory demyelinating lesions or leptomeningeal enhancement - I consulted Dr. Ferrell from [place] to help assist with diagnosis and antibiotic management. - Should we start antibiotics to cover Listeria and Whipple disease? Should we order the [facility] viral encephalitis panel? Defer to Dr. Ferrell. - I would like to treat the patient prophylactically with high dose steroids for possible autoimmune paraneoplastic disease. Please start SoluMedrol 1,000 mg IV daily for total of 3 days. Closely monitor her blood glucose and adjust the insulin to keep her blood glucose < 200. - One more dose of Thiamine 500 mg IV then continue 100 mg PO daily. - Ordered SSA, SSB, and ANCA - Pending CSF cryptococcus, paraneoplastic panel, lyme and cytology. Pending vitamin B1 level. - Continue Neuro check every 4 hours - Please get her OOB to chair - Fall precautions 2. Hyponatremia- slowly correcting. Cognition seems to be improving since sodium has been above 124. 3. Hyperglycemia- within normal range today but was uncontrolled yesterday. Pt is eating now hence the elevation in glucose. 4. Severe hypokalemia- defer to the primary team. 5. Suspect cervical spondylosis with myelopathy- continue supportive care. Further imaging can be done once her mentation improves. Dr. Cerrato will be covering the neurology service starting tomorrow. I will discuss the case with her in-detail. I spent a total of 50 minutes and 50% was spent arranging the above orders, examining the patient, discussing the treatment plan with the bedside nurse.
[2018-03-26] MEDS: KCL 20 MEQ/100 ML IVPREMIX* 20 MEQ/100 ML BAG IV SCH ×3 (10:51→15:28)
--- NOTE | 2018-03-26 13:56 | RAD ---
INDICATION: Right [id number] COMPARISON: March 22, 2018 TECHNIQUE: An AP portable upright examination taken at 1339 hours is submitted. FINDINGS: Bones/Soft Tissues: There are no acute bony findings. Cardiomediastinal: The heart is normal in size. The central pulmonary vessels and interstitium are prominent compatible with moderate vascular congestion with mild worsening. Lungs: There is worsening aeration right lung base. Pleura: Bilateral pleural effusions right greater than left. The right-sided effusion has increased in size. Other: None IMPRESSION: VASCULAR CONGESTION WITH WORSENING IN AERATION RIGHT LUNG BASE AND AN INCREASE IN SIZE IN THE PLEURAL EFFUSIONS
[2018-03-26] MEDS ORDERED: Thiamine IV* 500 MG in NS 0.9% 250 ML* 250 ML IV ONE (14:00)
[2018-03-26] MEDS: LORazepam INJ* 2 MG/ML 1 ML VIAL IV PUSH PRN (15:24)
[2018-03-26] MEDS ORDERED: Gadoteridol* (CONTRAST) 279.3 MG/ML 10 ML IV ONE (16:10)
--- NOTE | 2018-03-26 16:59 | RAD ---
INDICATION: Brainstem encephalitis. COMPARISON: Comparison is made with a prior MRI of the brain from March 22, 2018. TECHNIQUE: Axial FLAIR images were obtained. In addition, axial, sagittal and coronal T1-weighted images were obtained following intravenous injection of 9 ml of ProHance contrast. The exam is limited due to motion artifact. FINDINGS: The ventricles, cisterns and sulci are prominent consistent with diffuse atrophy. There is high signal intensity present which is new on the left side in the cortex in the frontal, parietal and occipital lobes. There are also other scattered foci of increased signal intensity on T2-weighted images within the subcortical and periventricular white matter which are unchanged suggestive of chronic small vessel ischemic changes. No abnormal area of enhancement is seen. The results of this exam were discussed with the referring clinician. IMPRESSION: NONSPECIFIC T2 HYPERINTENSITY WITHIN THE [place] MATTER ON THE LEFT SIDE DESCRIBED WHICH COULD BE CONSISTENT WITH THE PATIENT'S HISTORY OF ENCEPHALOMYELITIS ALTHOUGH A WATERSHED INFARCT CANNOT BE EXCLUDED. NO ABNORMAL ENHANCEMENT IS PRESENT.
[2018-03-26] MEDS: methylPREDNISolone SOD SUCC* 1,000 MG in NS 0.9% 1000 ML* 1,000 ML IVPB SCH (18:32)
--- NOTE | 2018-03-26 19:26 | PN ---
Hospitalist Progress Note Date of Service: 03/26/18 Pt seen and examined. Meds and labs reviewed. Received a call from telecom field technician earlier about pt having A. fib, that quickly went to NSR. Upon inquiry of how many events like these pt may have had, tech mentioned that it happened more than once and would sometimes last for a couple of hours. Ordered for repeat EKG, 12 lead if recurs in tele. Pt was not able to lie still in MRI yesterday. Ordered PRN Ativan 30 mins prior to the exam for today. Repeat lumbar tap done. Please see discussion below. ROS: Denied YOON/dizziness, F/C, N/V, CP, SOB, increased cough, sputum production , abd pain, diarrhea, constipation, dysuria, myalgias, arthralgias, throat pain , and new skin lesions. The rest of the 14 point ROS are unremarkable. PHYSICAL EXAM: GEN APPEARANCE: Awake, not in acute distress HEENT: NC/AT, PERRLA, moist oral mucosa, (-) throat erythema NECK: Soft, supple, (-) cervical LAD, (-)JVD HEART: S1S2 WNL, RRR, No MRG CHEST: CTA, BL, GAE, No W/R/R ABD: Soft, ND/NT, NABS 4x Q EXT: No C/C/E SKIN: Warm to touch PSYCH: No active psychosis, hallucinations, depression, SI/HI ASSESSMENT AND PLAN: #Acute encephalopathy, multifactorial: -?underlying viral non-HSV encephalitis vs paraneoplastic vs metabolic encephalopathyvs. Leptomeningeal carcinomatosis -Left lateral rectus palsy today first seen by Dr. Greene was not seen in the past. -Per Dr. Greene, she's likely not having seizures since there has been no reported seizure activity and two previous EEGs have showed non-specific encephalopathy without any epileptiform abnormalities -Repeat lumbar tap and MRI of brain to evaluate for any inflammatory demyelinating lesions or leptomeningeal enhancements -Agree with Dr. Hinojosa request for ID consult given complexity and breath of differentials to consider -Agree with Solumedrol as discussed with Dr. Greene and Sandor in briefwill await Dr. Walker full evaluation for any further guidance -Continue Thiamine PO---high level after pt received IV Thiamine; was on low normal range in previous encounters -Speech eval recommends thin liquids and pureed food will place on a consistent carbohydrate diet #Hyponatremia, hypovolemic: -On review of H&P, pt had BL LE edema of 2+ and pt has received Lasix initially which was D/Cd and placed on IVF on 03/22 likely due to hypovolemic hyponatremia with improving levels -Will continue IVF and watchful waiting -Will give daily dose of Lasix and will continue to monitor sodium levelswill re-check at 10 PM tonight #Hypokalemia: -Corrected -Will continue to follow #Diabetes, improved: -Currently well-controled #DVTp: -Continue Heparin SQ to q12 given advanced age #Dispo: -As above
[2018-03-26] MEDS: NS 0.9% 1000 ML* 1,000 ML IV SCH (21:58)
--- NOTE | 2018-03-26 22:22 | CONS ---
CONSULTATION REPORT: DATE OF CONSULT: 03/26/18 REQUESTING PHYSICIAN: Dr. Greene. REASON FOR CONSULT: Encephalopathy. IMPRESSION: 1. Five to seven days of encephalopathy which was present on admission, abnormal spinal fluid profile including a cerebrospinal fluid pleocytosis with approximately 100 white cells on 03/23/18 and 95% neutrophils; on 03/25/18, 70% neutrophils and 25% lymphocytes. No other atypical cells seen. The protein is elevated and climbing. HSV1 and 2 PCR negative. 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 The differential diagnosis does include infectious and noninfectious etiologies. Infectious consideration include viral, the herpes studies were negative. We will add a varicella PCR as another consideration. At this time of year, enteroviruses come to mind including West Nile for mosquito borne and [place] virus for tick borne. Other tick borne considerations include Lyme; however, that is more common I see with meningitis and unlikely to cause encephalitis; so I think it is unlikely. She could have a parameningeal focus of infection including an epidural collection given recent epidural catheter; however, she is afebrile and blood cultures are negative so I think it is a little bit less likely. Other mimics of an aseptic meningitis include listeriosis. Spinal fluid cultures are negative and the white cell count is declining and not particularly high, so I think that is a little bit less likely. Noninfectious etiologies are being considered including paraneoplastic syndrome. Question others including lupus or Gaby' s. 2. Status post nephrectomy for a renal cell carcinoma in [place], [place] about 2 weeks ago. She had a postoperative delirium which apparently cleared. Other hospital or surgical complications that could lead to infection at this point include a healthcare-associated urinary tract infection or pneumonia; however, she does not have evidence of either. Surgical site infections are always a consideration. She had leukocytosis, but that has resolved. She has had no fever, so I think an abscess at the previous kidney location is less likely. 3. Diabetes mellitus. 4. We will also add a C-reactive protein and repeat a chest x-ray. RECOMMENDATIONS: We will add a varicella PCR and a [facility] encephalitis panel from the CSF which will cover West Nile and and [place]. MRI of the spine to rule out epidural component. HISTORY OF PRESENT ILLNESS: This is a 77-year-old woman who had a nephrectomy on the right in February 2018 at [place], which is complicated by delirium, apparently resolved and then was able to make it back home. She cannot provide any details , which are obtained instead from review of the medical record and discussion with Dr. Greene. Here she arrived on the 03/21/18, she was afebrile, she had no leukocytosis. She had an MRI of the brain on the 03/22/18 that showed scattered small foci of elevated T2 FLAIR signal in the periventricular subcortical white matter. No acute infarct. Chest x-ray showed a right-sided effusion. She developed a white count on 03/22/18 to 14, up to 20 03/23/18 and down to 9 since then. She has had no fevers while she has been here. She has continued to be noninteractive, not communicative. She was noted by Dr. Greene to have pinpoint pupils and ophthalmoplegia. She has had a lumbar puncture twice as noted above. Most recently a cytology came back negative from the last lumbar puncture. She had an EEG on the that showed nonspecific diffuse encephalopathy. PAST MEDICAL HISTORY: 1. Type 2 diabetes mellitus. 2. Renal cell carcinoma, status post right nephrectomy. 3. Hypertension. 4. Hypothyroidism. 5. Aortic stenosis. 6. Anemia. MEDICATIONS: 1. Aspirin. 2. Heparin subcutaneous injection. 3. Hydrocortisone 50 mg every 8 hours. 4. Levothyroxine IV. ALLERGIES: PENICILLIN, unknown reaction. FAMILY HISTORY: Unobtainable. SOCIAL HISTORY: Unobtainable from the medical records. Looks like she had lived in a halfway before hospitalization. REVIEW OF SYSTEMS: Unobtainable. PHYSICAL EXAM: Vital Signs: Temperature is 36.5, heart rate 60, respiratory rate 16, blood pressure 150/70, and oxygen saturation 95% on room air. General : She is awake and not in distress. Neurologic: She does not follow commands. She does not regard. She has pinpoint pupils. Appears to have disconjugate gaze. There is no lower extremity clonus. Her upper extremities are rigid without clonus. HEENT: There is no conjunctival hemorrhage. Oropharynx without lesions. Neck: Supple without mass. Lymph Nodes: There are no cervical, supraclavicular, inguinal, axillary, or epitrochlear lymphadenopathy. Heart: Regular, rate, and rhythm without murmurs, rubs, or gallops. Lungs are clear to auscultation bilaterally. Abdomen: Soft, nontender , and nondistended. There are bowel sounds present. Right lateral incision without erythema. Skin: There is no rashes or splinter hemorrhages. Musculoskeletal: No spinous tenderness to palpation or joint synovitis. DIAGNOSTIC STUDIES/LAB DATA: White blood cell count 9, hemoglobin 11, platelets 45, creatinine 0.7. Please see impressions and recommendations outlined above. Thanks for asking me to see Evert Boss in consultation. [id number]/[facility] #: [id number] [facility] CENTERTianna
[2018-03-27] MEDS: Insulin LISPRO* 1 UNITS UNIT SUBCUT SCH ×4 (03:11→20:56)
[2018-03-27] MEDS: Levothyroxine INJ* 100 MCG/5 ML VIAL IV SCH (05:41)
[2018-03-27 06:41] LABS: Hematocrit 33 % (35-47); Hemoglobin 11.2 g/dl (12.0-16.0); Mean Corpuscular HGB Conc 34 g/dl (31-36); Mean Corpuscular Hemoglobin 30 pg (27-31); Mean Corpuscular Volume 88 fL (80-97); Platelet Count 453 10^3/ul (150-450); Red Blood Count 3.75 10^6/ul (4.00-5.40); Red Cell Distribution Width 18 % (10.5-15); White Blood Count 5.9 10^3/ul (3.5-10.8)
[2018-03-27 07:02] LABS: EGFR Non-African American 94.9 (>60)
[2018-03-27] MEDS ORDERED: Magnesium Sulfate 2 GM IV* 2 GM/50 ML BAG IVPB ONE ×2 (07:49→09:52)
[2018-03-27] MEDS: NS 0.9% 1000 ML* 1,000 ML IV SCH (08:14)
[2018-03-27] MEDS: Thiamine TAB* 100 MG TAB PO SCH (08:16)
[2018-03-27] MEDS: Aspirin 81 mg CHEW TAB* 81 MG TAB.CHEW PO SCH (08:16)
[2018-03-27] MEDS: methylPREDNISolone SOD SUCC* 1,000 MG in NS 0.9% 1000 ML* 1,000 ML IVPB SCH (08:18)
[2018-03-27] MEDS: Heparin VIAL(*) 5000 UNITS/ML VIAL (FIVE THOUSAND) SUBCUT SCH ×2 (08:19→20:56)
[2018-03-27] MEDS: KCL 20 MEQ/100 ML IVPREMIX* 20 MEQ/100 ML BAG IV SCH ×3 (08:36→15:44)
[2018-03-27] MEDS ORDERED: Potassium Chlor TAB* 20 MEQ TAB.ER PO ONE (09:42)
[2018-03-27] MEDS ORDERED: Losartan TAB* 25 MG PO SCH (10:00)
[2018-03-27] MEDS: cefTRIAXone(*) 2 GM in NS 0.9% 100 ML* 100 ML IVPB SCH ×2 (11:50→22:51)
[2018-03-27] MEDS: Artificial Tears* 15 ML BTL BOTH EYES SCH ×3 (13:05→20:56)
[2018-03-27] MEDS ORDERED: Vancomycin Trough Check NOTE FOLLOW UP ONE (13:30)
--- NOTE | 2018-03-27 15:28 | PN ---
Subjective Date of Service: 03/27/18 Interval History: Pt seen and examined. Meds and labs reviewed. Pt has confirmed A. fib with 12 lead EKG. RN also informed me about previous concerns pt may not be sleeping and appears to have dry eyes. ROS: Unable to reliably obtain 14 point ROS PHYSICAL EXAM: GEN APPEARANCE: Awake, not in acute distress, animated facie with pt appearing to smile no matter what HEENT: NC/AT, PERRLA, moist oral mucosa, (-) throat erythema NECK: Soft, supple, (-) cervical LAD, (-)JVD HEART: S1S2 WNL, RRR, No MRG CHEST: CTA, BL, GAE, No W/R/R ABD: Soft, ND/NT, NABS 4x Q EXT: No C/C/E SKIN: Warm to touch PSYCH: Could not be reliably assessed Objective Active Medications: Aspirin (Aspirin 81 Mg Chew Tab*) 81 mg PO DAILY [facility] Last Admin: 03/27/18 08:16 Dose: 81 mg Dextrose (D50w Syringe 50 Ml*) 12.5 gm IV PUSH .FOR FS < 60 - SS PRN PRN Reason: FS < 60 Heparin Sodium (Porcine) (Heparin Vial(*)) 5,000 units SUBCUT Q12HR [facility] Last Admin: 03/27/18 08:19 Dose: 5,000 units Methylprednisolone Sodium Succinate 1,000 mg/ Sodium Chloride 1,000 mls @ 100 mls/hr IVPB DAILY WITH MEAL [facility] Stop: 03/29/18 01:00 Last Admin: 03/27/18 08:18 Dose: 100 mls/hr Ceftriaxone Sodium 2 gm/ (Sodium Chloride) 100 mls @ 200 mls/hr IVPB Q12H [facility] Last Admin: 03/27/18 11:50 Dose: 200 mls/hr Lactated Ringer's (Lactated Ringers 1000 Ml Bag*) 1,000 mls @ 75 mls/hr IV PER RATE [facility] Last Admin: 03/27/18 11:45 Dose: 75 mls/hr Insulin Human Lispro (Humalog*) 0 units SUBCUT Q6H [facility] PRN Reason: Protocol Last Admin: 03/27/18 08:16 Dose: 3 units Levothyroxine Sodium (Synthroid Inj*) 75 mcg IV 0600 [facility] Last Admin: 03/27/18 05:41 Dose: 75 mcg Lorazepam (Ativan Inj*) 0.5 mg IV PUSH ONCE PRN PRN Reason: ANXIETY Last Admin: 03/26/18 15:24 Dose: 0.5 mg Losartan Potassium (Cozaar Tab*) 50 mg PO DAILY [facility] Morphine Sulfate (Morphine Vial*) 2 mg IV Q4H PRN PRN Reason: PAIN - MILD Last Admin: 03/25/18 21:27 Dose: 2 mg Polyvinyl Alcohol (Polyvinyl Alcohol 1.4% Opth*) 1 drop BOTH EYES Q4H [facility] Last Admin: 03/27/18 13:05 Dose: 1 drop Thiamine HCl (Vitamin B-1 Tab*) 100 mg PO DAILY [facility] Last Admin: 03/27/18 08:16 Dose: 100 mg Vital Signs - 8 hr 03/27/18 03/27/18 03/27/18 07:37 07:45 08:00 Temperature 97.0 F Pulse Rate 59 61 Respiratory 17 17 Rate Blood Pressure 168/71 (mmHg) O2 Sat by Pulse 96 Oximetry 03/27/18 11:10 Temperature 97.3 F Pulse Rate 68 Respiratory 17 Rate Blood Pressure 169/75 (mmHg) O2 Sat by Pulse 100 Oximetry Oxygen Devices in Use Now: None Result Diagrams: 03/27/18 05:55 03/27/18 05:55 Additional Lab and Data: Lab Results 03/21/18 03/21/18 Range/Units 15:26 15:34 WBC 7.0 (3.5-10.8) 10^3/ul RBC 4.35 (4.0-5.4) 10^6/ul Hgb 12.6 (12.0-16.0) g/dl Hct 38 (35-47) % MCV 87 (80-97) fL MCH 29 (27-31) pg MCHC 33 (31-36) g/dl RDW 18 H (10.5-15) % Plt Count 456 H (150-450) 10^3/ul MPV 6.9 L (7.4-10.4) um3 Neut % (Auto) 70.4 (38-83) % Lymph % (Auto) 16.1 L (25-47) % Charlton % (Auto) 8.3 H (0-7) % Eos % (Auto) 3.9 (0-6) % Baso % (Auto) 1.3 (0-2) % Absolute Neuts (auto) 5.0 (1.5-7.7) 10^3/ul Absolute Lymphs (auto) 1.1 (1.0-4.8) 10^3/ul Absolute Monos (auto) 0.6 (0-0.8) 10^3/ul Absolute Eos (auto) 0.3 (0-0.6) 10^3/ul Absolute Basos (auto) 0.1 (0-0.2) 10^3/ul Absolute Nucleated RBC 0 10^3/ul Nucleated RBC % 0.1 POC Glucose (mg/dL) 59 L (70-100) mg/dL Microbiology and Other Data: Microbiology 03/23/18 14:00 CSF Gram Stain (Tube 3) - Final Cerebral Spinal Fluid 03/22/18 04:10 Nasal Screen MRSA (PCR)(SAMANTHA) - Final Nasal Mrsa Not Detected Diagnostic Imaging: EEG from 03/24/2018: moderate encephalopathy. No epileptiform abnormalities. EEG 03/23/2018: read by Dr. Garnett. non-specific encephalopathy MRI brain without contrast on 03/22/2018: non-specific white matter changes with generalized cortical atrophy CT and CTA head without contrast on 03/21/2018: age appropriate chronic white matter changes and atrophy. No hemorrhage. CTA no large vessel occlusion or aneurysm. There was R>L pleural large pleural effusions. Assess/Plan/Problems-Billing This is a complex case. Ms. Boss is a 77-year-old female who lived in an assisted living facility and was functionally independent on ADLs prior to her hospitalization for a nephrectomy done on 03/03/2018, who had an episode of delirium at the OSH that resolved after the removal of an epidural catheter used for pain. She has has recurrence of severe encephalopathy on 03/21/2018. She was found to have hyponatremia and slight hypoxia on presentation that improved. She has large pleural effusions. Neurological examination now shows evidence of ophthalmoparesis and persistent hypoactive delirium. A lumbar puncture initially showed evidence of elevated WBC, neutrophil predominance, and elevated protein. She had negative HSV1-2 PCR. An MRI brain without contrast was negative for acute intracranial process. She was unable to cooperate with a repeat MRI brain with contrast yesterday. She had an LP repeated yesterday as not enough CSF fluid was obtained during the first LP. She still has elevated WBC with neutrophil and some lymphocytic predominance. Protein is also elevated with corrected protein of 97. The patient had received 2.5-3 days worth of ceftriaxone and acyclovir and her SERUM WBC dropped from 20K to 9K. Her mentation improved but she still has significant cognitive deficits. Important to add is that the CSF culture is negative so far. The differential diagnosis here is acute-subacute brainstem encephalitis which can be caused by an underlying infection or autoimmune condition. The fact that she had an elevated serum WBC that dropped with antibiotic can suggest a bacterial infection such as Listeria or Whipple disease that may have been triggered by her immunosuppressed state. Other differential diagnosis include paraneoplastic condition given her cancer or Wernicke's encephalopathy in the setting of poor nutritional status. I discussed the case with Tamir Galeas and Dr. Ferrell. Dr. Ferrell was concerned about a focal epidural abscess in the setting of recent epidural catheter placement which could have spread to the [employer]. Recommendations: - Ordered an MRI brain with contrast to evaluate for any inflammatory demyelinating lesions or leptomeningeal enhancement - I consulted Dr. Ferrell from [place] to help assist with diagnosis and antibiotic management. - Should we start antibiotics to cover Listeria and Whipple disease? Should we order the [facility] viral encephalitis panel? Defer to Dr. Ferrell. - I would like to treat the patient prophylactically with high dose steroids for possible autoimmune paraneoplastic disease. Please start SoluMedrol 1,000 mg IV daily for total of 3 days. Closely monitor her blood glucose and adjust the insulin to keep her blood glucose < 200. - One more dose of Thiamine 500 mg IV then continue 100 mg PO daily. - Ordered SSA, SSB, and ANCA - Pending CSF cryptococcus, paraneoplastic panel, lyme and cytology. Pending vitamin B1 level. - Continue Neuro check every 4 hours - Please get her OOB to chair - Fall precautions 2. Hyponatremia- slowly correcting. Cognition seems to be improving since sodium has been above 124. 3. Hyperglycemia- within normal range today but was uncontrolled yesterday. Pt is eating now hence the elevation in glucose. 4. Severe hypokalemia- defer to the primary team. 5. Suspect cervical spondylosis with myelopathy- continue supportive care. Further imaging can be done once her mentation improves. Dr. Cerrato will be covering the neurology service starting tomorrow. I will discuss the case with her in-detail. I spent a total of 50 minutes and 50% was spent arranging the above orders, examining the patient, discussing the treatment plan with the bedside nurse. - Patient Problems (1) Encephalopathy acute Current Visit: Yes Status: Acute Code(s): G93.40 - ENCEPHALOPATHY, UNSPECIFIED SNOMED Code(s): 79529031 Comment: #Acute encephalopathy, multifactorial: -?underlying viral non-HSV encephalitis vs paraneoplastic vs metabolic encephalopathyvs. 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 Greene was not seen in the past. -Per Dr. Greene, she's likely not having seizures since there has been no reported seizure activity and two previous EEGs have showed non-specific encephalopathy without any epileptiform abnormalities -Discussed case with Dr. Antunez today and given electrolyte imbalance and other differentials such as epidural abscess, pt has been placed on Rocephin while awaiting the rest of the patients w/u while she re-discusses the case with Dr. Neri defer as this seems reasonable given the varied and overlapping S/S consistent with broad differentials -Continue Thiamine PO---high level after pt received IV Thiamine; was on low normal range in previous encounters -Speech eval recommends thin liquids and pureed food will place on a consistent carbohydrate diet -Pt placed on high dose Solumedrol yesterday and discussed with Dr. Greene given possible inflammatory and/or autoimmune process discussed while empiric steroids for presumed adrenal insufficiency is D/Cd---timing of the first time pt received steroid seems to have coincided with the rise in leukocytosis with sudden drop to normalcy (2) Atrial fibrillation Current Visit: Yes Status: Acute Code(s): I48.91 - UNSPECIFIED ATRIAL FIBRILLATION SNOMED Code(s): 14545112 Comment: -Discussed with Dr. Antunez especially given possible CVA or possible isolated thrombus due to recent right nephrectomy -2D echo with bubble study to evaluate for PFO -No anticoagulation at the moment given encephalopathy and risks for intracranial bleed -Unclear if A. fib is truly paroxysmal vs. primary vs. induced by complicated pt course, among which are her hyponatremia and hypokalemia; consideration for atypical infection vs viral??? (3) Hyponatremia Current Visit: Yes Status: Acute Code(s): E87.1 - HYPO-OSMOLALITY AND HYPONATREMIA SNOMED Code(s): 95694902 Comment: #Hyponatremia, now euvolemic: -On review of H&P, pt had BL LE edema of 2+ and pt has received Lasix initially which was D/Cd and placed on IVF on 03/22 likely due to hypovolemic hyponatremia -Improving levels -Pt now appears to be Euvolemic and has some hepatojugular reflux (although without JVD) on examI/Os +1062 -Given hyponatremia now seen in at least 3 settings--hypervolemic, hypovolemic, and euvolemia---discussed possible cases with Dr. Antunez such as atypical infection which she mentions she will discuss further with Dr. Ferrell and/or intracranial and/or paraneoplastic process causing SIADH -Will D/C IVF (4) Dry eyes Current Visit: Yes Status: Acute Code(s): H04.123 - DRY EYE SYNDROME OF BILATERAL LACRIMAL GLANDS SNOMED Code(s): 871933107 Comment: -Placed on artificial Tears q4H -Discussed with Dr. Antunez if her complex pathology may prevent her from blinking and mentions that she does not see anything both clinically and radiologically given no other CN 7 deficits (5) Hypokalemia Current Visit: Yes Status: Acute Code(s): E87.6 - HYPOKALEMIA SNOMED Code( s): 26877222 Comment: -Corrected -Will continue to follow (6) Hypomagnesemia Current Visit: Yes Status: Acute Code(s): E83.42 - HYPOMAGNESEMIA SNOMED Code(s): 583272755 Comment: -Corrected -Will continue to follow (7) Diabetes 1.5, managed as type 2 Current Visit: Yes Status: Acute Code(s): E10.9 - TYPE 1 DIABETES MELLITUS WITHOUT COMPLICATIONS SNOMED Code(s): 025842405 Comment: -Now slightly elevated likely due to Solumedrol -Will provide low dose Lantus (5 units) in addition to insulin Sliding scale (8) DVT prophylaxis Current Visit: Yes Status: Acute Code(s): VHC9710 - SNOMED Code(s): 834864733 Comment: -Continue Heparin SQ to q12 given advanced age Status and Disposition: -As above
[2018-03-27] MEDS ORDERED: Dextrose 50% Syringe 50 ML* 25 GM/50 ML SYRINGE IV PUSH PRN (15:34)
[2018-03-27] MEDS ORDERED: Insulin LISPRO* 1 UNITS UNIT SUBCUT ONE (15:34)
[2018-03-27] MEDS ORDERED: Insulin GLARGINE(*) 1 UNITS UNIT SUBCUT SCH (16:00)
--- NOTE | 2018-03-27 16:39 | PN ---
PROGRESS NOTE: DATE OF SERVICE: 03/27/18 HISTORY OF PRESENT ILLNESS: Elizabeth Boss is a 77-year-old woman with a history of hypertension, diabetes, hypothyroidism, status post right nephrectomy on 03/09/18, with venous cava thrombectomy, complicated by confusion and hyponatremia, who was admitted to [facility] on with cognitive and functional decline. She had been discharged from [facility] after her surgery with improvement. It was thought that her confusion was secondary to hyponatremia with SIADH. Sodium was low as 125 was noted at [place]. She went back to [facility] for 1 day; however, had further decline and was admitted to hospital where Dr. Garnett saw her in initial neurologic consultation, and Dr. Greene has been following her in Neurology. Multiple factors have been noted to contribute to her decline, and she has had an extensive workup. Initially, the question of stroke was raised given her vena cava thrombectomy, recent surgery, potential hypercoagulable state in the setting of neoplasm. She had a CTA of the brain and neck, which showed a 33% left internal carotid artery occlusion. She was noted to have pleural effusions, which was large on the right, medium on the left, and she was admitted to the ICU. Her initial MRI was read as showing nonspecific white matter changes that were old with no acute changes. Then, she had repeat EEGs, which showed no evidence of epileptiform activity. Different metabolic contributions were noted including again hyponatremia with sodium to 118, hyperthyroidism with TSH of 13.46, and a potential of metabolic change with thiamine deficiency for which she has had a B1 drawn and is pending , and has been started on thiamine. She had respiratory decline, which may also have contributed to her clinical status and was in the ICU requiring BiPAP , this has improved. She is now saturating well on room air. Because of her clinical status, she went on to have 2 lumbar punctures, the initial lumbar puncture on March 23 showed an opening pressure, which was low at 3 to 4 with white blood cell count of 106 with neutrophil percentage 95%, protein 58, and glucose 70. Repeat lumbar puncture given persistent confusion and minimal CSF obtained in the first lumbar puncture showed again an opening pressure of 3 mmHg with a negative cytology. White blood cell count was 86 with 69% neutrophils, 24% lymphocytes, protein was 102, increased from previous , and the glucose was 137. She was temporarily on acyclovir and on ceftriaxone from 03/23/18 to 03/25/18. Her HSV PCR came back negative. Clinical improvement was noted by the 13th with improvement in sodium, improvement in respiratory status, and with a transient treatment with acyclovir and ceftriaxone. As she improved, it was clear that there were focal changes and Dr. Greene questioned a left gaze palsy and noted visual hallucinations. Given the Infectious Disease differential diagnosis, Dr. Patten was called and gave consultation yesterday and suggested obtaining viral encephalitis panel as well as VZV PCR and looking further at the spine for potential abscess. Her C-reactive protein was noted to be elevated at 57.16 and differential diagnosis of infectious inflammatory cause was raised and she was started on Solu-Medrol yesterday, today is day 2, of 1 g Solu-Medrol daily for 3 days. Her ANCA and SSA, SSB have been requested. Differential of paraneoplastic causes also raised. The patient remains afebrile, some notes indicate verbal response, others indicate no verbal response. PHYSICAL EXAMINATION: On examination, her most recent temperature was 97 degrees, axilla; her pulse was 61; respiratory rate was 17; saturation was 96%; blood pressure was 168/71. She had a regular cardiac rhythm to auscultation and palpation. There was no carotid bruit. Her lungs had decreased air entry distally. She looked at me and smiled and was more attentive looking toward the left visual john. She tried to speak a short sentence, which had dysarthria. Her pupils were small. She had a left gaze preference. She did not blink to threat on the right, but did blink to threat on the left. I could not visualize her fundi. Her facial expression was symmetric. She did not open up her mouth or participate in further cranial nerve exams. Her tone was symmetric. She squeezed both my hands, more spontaneously on the left more than the right. She was able to lift both arms up above her head and held the left one up there longer than the right, albeit did hold the right up for a significant period of time. In her legs, she could move them antigravity, held the left up in the air and showed some perseveration. In the right leg, she just got up antigravity, but did not hold it up. She was slow to respond to commands. She said yes when I asked her if she felt sensations such as cold, light touch, and sharp. She seemed to attend bilaterally, but this was difficult to ascertain. Her reflexes were 2+ at the triceps and knees. Her toes were upgoing bilaterally. The patient could not participate in further sensory coordination or gait exam. LABORATORY DATA: Includes extensive chart, which was reviewed including neurologic consultation notes, Dr. Patten's note. Importantly, MRI of the brain from 03/22 showed nonspecific white matter changes. This film was reviewed directly. In retrospect, I do question if there is some cortical signal change starting in the left parietooccipital region. The image on 03/26 shows T2 hyperintensities in the tanner matter and left frontoparietal occipital region with no enhancement. DWI images were not performed and this was a minimal study with movement artifact. CTA as previously noted showed a 33% of a left internal carotid artery stenosis and lumbar puncture results as noted above. It showed elevated protein, which has been increasing from 58 to 102 on the second spinal tap. White blood cell count , which was decreasing from 100 to 86 on this spinal tap with neutrophil percentage decreasing with the second spinal tap. Her HSV came back negative and VZV is now pending. Her ammonia repeatedly has been within normal limits. Her B12 was 1267. She has had perpetual decrease in potassium as well as she has had been noted to have decrease in phosphate and magnesium for which hospitalist is providing supplementation. Her calcium was low with ionized calcium slightly low at 4.08 on the . C-reactive protein was elevated at 57.16 on the . Her CBC showed hemoglobin and hematocrit, which were slightly decreased to 11.2 and 33, and glucose was elevated at 453. CURRENT MEDICATIONS: Include: 1. Aspirin 81 mg p.o. q. day. 2. Levothyroxine 75 mcg IV daily. 3. Lispro subcu q. 6 hours. 4. Heparin 5000 international units subcu q. 12 hours. 5. Ativan 0.5 mg IV push p.r.n. anxiety, last dose on Thursday the . 6. Methylprednisolone 1 g IV q. day x3 days starting yesterday. 7. Potassium chloride 20 mEq ordered IV over 2 hours. 8. Thiamine 100 mg p.o. daily. 9. Potassium chloride 60 mEq p.o. x1. 10. Magnesium 2 g IV x1. 11. Ringer's lactate 125 mL/hour. 12. Cozaar 25 mg p.o. daily with p.r.n. morphine 2 mg IV q. 4 hours p.r.n. mild pain with last dose on , 03/25/18, and an order for p.r.n. dextrose 50%. ALLERGIES: Include PENICILLIN. IMPRESSION: A 77-year-old woman with history of hypertension, diabetes, hypothyroidism, status post right nephrectomy on 03/09/18 with vena cava thrombectomy complicated by confusion, hyponatremia, [place] [facility] [place], with cognitive and functional decline, confusion and agitation, difficulty speaking and interacting on examination with multiple potential contributing factors to the decline: 1. Metabolic. She has hyponatremia with a clinical fluctuation noted previously with levels of hyponatremia. She is now at 133. She has hypothyroidism, is on supplementation. 2. Respiratory. She had pleural effusions, requiring ICU and the BiPAP, now improved with saturation that is 96% on room air; however, persistent effusions on chest x-ray. 3. Infectious. ID is involved. She was temporarily on acyclovir and ceftriaxone as well as vancomycin. Blood cultures and CSF cultures to date are negative. With the elevated protein and white count, differential diagnosis does include viral encephalitis and panel is pending. Also ordered is varicella -zoster virus PCR, cryptococcal antigen. Lyme serologies have been ordered, and I have added tick-borne disease antibodies. Per-Baptiste virus PCR has also been ordered; these are pending. Given the fact we have yet to get varicella-zoster virus PCR and the results of Lyme and tick-borne diseases as well as the question of differential diagnosis of abscess, question is raised to ID whether we should restart ceftriaxone and vancomycin, and potentially acyclovir, until we get results. For now I will restart Ceftriaxone. Discussed with hospital team, and reached out to ID. 4. Dr. Patten has suggested spinal imaging looking for abscess. This, however, may require sedation given movement with her scan yesterday, she also received contrast yesterday. 5. Inflammatory and immune-mediated etiology was raised and she was started by Dr. Greene on Solu-Medrol, is on day 2. She had elevated C-reactive protein, cANCA and pANCA are pending, I have asked KYLIE and sedimentation and paraneoplastic panel was pending. 6. Differential diagnosis of a nutritional cause was raised and she is on thiamine, B1 is pending. 7. Ischemia is still high in the list of differential diagnosis given her history of tumor, potential with hypercoagulability, thrombectomy in the vena cava. This is of a large concern and she may need further imaging of the vena cava. I would first start with getting echo with bubble study to see if there is a patent foramen ovale, which would allow paradoxical emboli. We will start with a transthoracic given her clinical state. I would hold off on full anticoagulation given risk of bleeding in the setting of potential recent stroke and potential for an infection. We will consider repeating MRI of the brain on Thursday with diffusion weighted images. TIME SPENT: Over 2 hours was spent in review of the patient's case, review of MRIs directly, review of data notes, and an additional hour putting together this note and in trying to coordinate the care previously given, and giving further input into evaluation and treatment in this complex case. [id number]/[facility] #: [id number] THUY
[2018-03-27] MEDS ORDERED: Furosemide IV* 10 MG/ML 2 ML VIAL (20 MG) IV ONE (16:40)
[2018-03-27] MEDS: Morphine VIAL* 4 MG/ML VIAL (1 ml vial) IV PRN (19:00)
[2018-03-27] MEDS ORDERED: LORazepam INJ* 2 MG/ML 1 ML VIAL IV PUSH PRN (19:20)
[2018-03-27] MEDS ORDERED: LORazepam INJ* 2 MG/ML 1 ML VIAL ONE (19:26)
[2018-03-28] MEDS: Artificial Tears* 15 ML BTL BOTH EYES SCH ×6 (00:32→21:45)
[2018-03-28] MEDS: Insulin LISPRO* 1 UNITS UNIT SUBCUT SCH ×4 (04:11→21:45)
[2018-03-28] MEDS: Levothyroxine INJ* 100 MCG/5 ML VIAL IV SCH (05:42)
[2018-03-28 07:09] LABS: ABS Basophils 0 10^3/ul (0-0.2); ABS Eosinophils 0 10^3/ul (0-0.6); ABS Lymphocytes 0.4 10^3/ul (1.0-4.8); ABS Monocytes 0.3 10^3/ul (0-0.8); ABS Neutrophils 7.7 10^3/ul (1.5-7.7); ABS Nucleated RBC 0 10^3/ul; Eosinophil % 0 % (0-6); Hematocrit 32 % (35-47); Hemoglobin 11.1 g/dl (12.0-16.0); Lymphocyte % 4.8 % (25-47); Mean Corpuscular HGB Conc 35 g/dl (31-36); Mean Corpuscular Hemoglobin 31 pg (27-31); Mean Corpuscular Volume 89 fL (80-97); Nucleated Red Blood Cells % 0; Platelet Count 388 10^3/ul (150-450); Red Blood Count 3.59 10^6/ul (4.00-5.40); Red Cell Distribution Width 18 % (10.5-15); White Blood Count 8.4 10^3/ul (3.5-10.8)
[2018-03-28 07:21] LABS: EGFR Non-African American 78.3 (>60)
[2018-03-28] MEDS: Aspirin 81 mg CHEW TAB* 81 MG TAB.CHEW PO SCH (08:35)
[2018-03-28] MEDS: Heparin VIAL(*) 5000 UNITS/ML VIAL (FIVE THOUSAND) SUBCUT SCH ×2 (08:36→21:46)
[2018-03-28] MEDS: Losartan TAB* 25 MG PO SCH (08:36)
[2018-03-28] MEDS: Thiamine TAB* 100 MG TAB PO SCH (08:36)
[2018-03-28] MEDS: methylPREDNISolone SOD SUCC* 1,000 MG in NS 0.9% 1000 ML* 1,000 ML IVPB SCH (08:53)
[2018-03-28] MEDS ORDERED: Potassium Chlor TAB* 20 MEQ TAB.ER PO ONE (09:02)
[2018-03-28] MEDS: Metoprolol Tartrate IV* 1 MG/ML 5 ML VIAL IV PRN (09:53)
[2018-03-28] MEDS: cefTRIAXone(*) 2 GM in NS 0.9% 100 ML* 100 ML IVPB SCH ×2 (10:58→23:09)
--- NOTE | 2018-03-28 11:20 | RAD ---
HISTORY: tachycardia and congestion COMPARISONS: March 22, 2018 VIEWS: 3: frontal portable view of the chest at 9:47 AM FINDINGS: LINES AND TUBES: None. CARDIOMEDIASTINAL SILHOUETTE: The cardiomediastinal silhouette is normal for portable technique. PLEURA: There is a moderate right pleural effusion. LUNG PARENCHYMA: There is confluent alveolar opacification of the right lung base. ABDOMEN: The upper abdomen is clear. There is no subphrenic gas. BONES AND SOFT TISSUES: No bone or soft tissue abnormalities are noted. IMPRESSION: MODERATE RIGHT PLEURAL EFFUSION WITH RIGHT BASILAR ATELECTASIS VERSUS CONSOLIDATION.
[2018-03-28] MEDS: Torsemide TAB* 20 MG PO SCH (11:34)
--- NOTE | 2018-03-28 15:19 | PN ---
Subjective Date of Service: 03/28/18 Interval History: Pt seen and examined. Meds and labs reviewed. ROS: Unable to reliably obtain 14 point ROS, however, pt appears to be more responsive today and answers questions, however, tangentially instead of staring blankly with a smile as in previous days. PHYSICAL EXAM: GEN APPEARANCE: Awake, not in acute distress HEENT: NC/AT, PERRLA, moist oral mucosa, (-) throat erythema NECK: Soft, supple, (-) cervical LAD, (-)JVD HEART: S1S2 WNL, RRR, No MRG CHEST: CTA, BL, GAE, No W/R/R ABD: Soft, ND/NT, NABS 4x Q EXT: No C/C/E SKIN: Warm to touch PSYCH: Could not be reliably obtained Objective Active Medications: Aspirin (Aspirin 81 Mg Chew Tab*) 81 mg PO DAILY [facility] Last Admin: 03/28/18 08:35 Dose: 81 mg Dextrose (D50w Syringe 50 Ml*) 12.5 gm IV PUSH .FOR FS < 60 - SS PRN PRN Reason: FS < 60 Dextrose (D50w Syringe 50 Ml*) 12.5 gm IV PUSH .FOR FS < 60 - SS PRN PRN Reason: FS < 60 Heparin Sodium (Porcine) (Heparin Vial(*)) 5,000 units SUBCUT Q12HR [facility] Last Admin: 03/28/18 08:36 Dose: 5,000 units Methylprednisolone Sodium Succinate 1,000 mg/ Sodium Chloride 1,000 mls @ 100 mls/hr IVPB DAILY WITH MEAL [facility] Stop: 03/29/18 01:00 Last Admin: 03/28/18 08:53 Dose: 100 mls/hr Ceftriaxone Sodium 2 gm/ (Sodium Chloride) 100 mls @ 200 mls/hr IVPB Q12H [facility] Last Admin: 03/28/18 10:58 Dose: 200 mls/hr Insulin Glargine (Lantus(*)) 8 units SUBCUT Q24H [facility] Insulin Human Lispro (Humalog*) 0 units SUBCUT Q6H [facility] PRN Reason: Protocol Last Admin: 03/28/18 14:41 Dose: 3 units Levothyroxine Sodium (Synthroid Inj*) 75 mcg IV 0600 [facility] Last Admin: 03/28/18 05:42 Dose: 75 mcg Lorazepam (Ativan Inj*) 0.5 mg IV PUSH ONCE PRN PRN Reason: ANXIETY Last Admin: 03/26/18 15:24 Dose: 0.5 mg Lorazepam (Ativan Inj*) 0.5 mg IV PUSH Q6H PRN PRN Reason: AGITATION Last Admin: 03/27/18 19:27 Dose: 0.5 mg Losartan Potassium (Cozaar Tab*) 50 mg PO DAILY [facility] Last Admin: 03/28/18 08:36 Dose: 50 mg Metoprolol Tartrate (Lopressor Iv*) 5 mg IV Q6H PRN PRN Reason: TACHYCARDIA Last Admin: 03/28/18 09:53 Dose: 5 mg Morphine Sulfate (Morphine Vial*) 2 mg IV Q4H PRN PRN Reason: PAIN - MILD Last Admin: 03/27/18 19:00 Dose: 2 mg Polyvinyl Alcohol (Polyvinyl Alcohol 1.4% Opth*) 1 drop BOTH EYES Q4H [facility] Last Admin: 03/28/18 10:59 Dose: 1 drop Thiamine HCl (Vitamin B-1 Tab*) 100 mg PO DAILY [facility] Last Admin: 03/28/18 08:36 Dose: 100 mg Torsemide (Demadex*) 10 mg PO DAILY [facility] Last Admin: 03/28/18 11:34 Dose: 10 mg Vital Signs - 8 hr 03/28/18 03/28/18 03/28/18 07:39 08:00 08:06 Temperature 97.3 F Pulse Rate 54 Respiratory 16 16 Rate Blood Pressure 164/80 (mmHg) O2 Sat by Pulse 93 Oximetry 03/28/18 03/28/18 03/28/18 09:29 10:34 11:07 Temperature 98.0 F Pulse Rate 54 72 Respiratory 20 20 22 Rate Blood Pressure 141/70 171/75 (mmHg) O2 Sat by Pulse 95 100 Oximetry 03/28/18 11:29 Temperature 98.6 F Pulse Rate 67 Respiratory 16 Rate Blood Pressure 156/72 (mmHg) O2 Sat by Pulse 99 Oximetry Oxygen Devices in Use Now: None Result Diagrams: 03/28/18 06:47 03/28/18 06:47 Additional Lab and Data: Lab Results 03/21/18 03/21/18 Range/Units 15:26 15:34 WBC 7.0 (3.5-10.8) 10^3/ul RBC 4.35 (4.0-5.4) 10^6/ul Hgb 12.6 (12.0-16.0) g/dl Hct 38 (35-47) % MCV 87 (80-97) fL MCH 29 (27-31) pg MCHC 33 (31-36) g/dl RDW 18 H (10.5-15) % Plt Count 456 H (150-450) 10^3/ul MPV 6.9 L (7.4-10.4) um3 Neut % (Auto) 70.4 (38-83) % Lymph % (Auto) 16.1 L (25-47) % Candler % (Auto) 8.3 H (0-7) % Eos % (Auto) 3.9 (0-6) % Baso % (Auto) 1.3 (0-2) % Absolute Neuts (auto) 5.0 (1.5-7.7) 10^3/ul Absolute Lymphs (auto) 1.1 (1.0-4.8) 10^3/ul Absolute Monos (auto) 0.6 (0-0.8) 10^3/ul Absolute Eos (auto) 0.3 (0-0.6) 10^3/ul Absolute Basos (auto) 0.1 (0-0.2) 10^3/ul Absolute Nucleated RBC 0 10^3/ul Nucleated RBC % 0.1 POC Glucose (mg/dL) 59 L (70-100) mg/dL Microbiology and Other Data: Microbiology 03/23/18 14:00 CSF Gram Stain (Tube 3) - Final Cerebral Spinal Fluid 03/22/18 04:10 Nasal Screen MRSA (PCR)(SAMANTHA) - Final Nasal Mrsa Not Detected Diagnostic Imaging: EEG from 03/24/2018: moderate encephalopathy. No epileptiform abnormalities. EEG 03/23/2018: read by Dr. Garnett. non-specific encephalopathy MRI brain without contrast on 03/22/2018: non-specific white matter changes with generalized cortical atrophy CT and CTA head without contrast on 03/21/2018: age appropriate chronic white matter changes and atrophy. No hemorrhage. CTA no large vessel occlusion or aneurysm. There was R>L pleural large pleural effusions. Assess/Plan/Problems-Billing - Patient Problems (1) Encephalopathy acute Current Visit: Yes Status: Acute Code(s): G93.40 - ENCEPHALOPATHY, UNSPECIFIED SNOMED Code(s): 96114734 Comment: #Acute encephalopathy, multifactorial: -?underlying viral non-HSV encephalitis vs paraneoplastic vs metabolic encephalopathyvs. 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 Greene was not seen in the past. -Per Dr. Greene, she's likely not having seizures since there has been no reported seizure activity and two previous EEGs have showed non-specific encephalopathy without any epileptiform abnormalities -Continue Thiamine PO---high level after pt received IV Thiamine; was on low normal range in previous encounters -Speech eval recommends thin liquids and pureed food will place on a consistent carbohydrate diet -Pt placed on high dose Solumedrol and discussed with Dr. Greene given possible inflammatory and/or autoimmune process discussed while empiric steroids for presumed adrenal insufficiency is D/Cd---timing of the first time pt received steroid seems to have coincided with the rise in leukocytosis with sudden drop to normalcy (2) Atrial fibrillation Current Visit: Yes Status: Acute Code(s): I48.91 - UNSPECIFIED ATRIAL FIBRILLATION SNOMED Code(s): 40997035 Comment: -Discussed case with Drs. Antunez and Jayashree today and given electrolyte imbalance and A. fib and occasional SVT -Discussed with Dr. Antunez especially given possible CVA or possible isolated thrombus due to recent right nephrectomy -2D echo with bubble study to evaluate for PFO -No anticoagulation at the moment given encephalopathy and risks for intracranial bleed -Discussed with Karlie Angulo and Renate and given age and comorbidities likely due to P. Afib, however, given lesions seen on MRI and dangers of hemorrhagic conversion, will hold off on anticoagulation until W/U above is done (3) Recurrent right pleural effusion Current Visit: Yes Status: Acute Code(s): J90 - PLEURAL EFFUSION, NOT ELSEWHERE CLASSIFIED SNOMED Code(s): 39917407 Comment: #Right pleural effusion: -Troponin normal--will continue to trend -2Decho with bubble study pending for tomorrow -Added low dose Torsemide -No previous diagnosis of CHF, although with significant risks of having one (4) Hyponatremia Current Visit: Yes Status: Acute Code(s): E87.1 - HYPO-OSMOLALITY AND HYPONATREMIA SNOMED Code(s): 63939566 Comment: #Hyponatremia, now euvolemic: -On review of H&P, pt had BL LE edema of 2+ and pt has received Lasix initially which was D/Cd and placed on IVF on 03/22 likely due to hypovolemic hyponatremia -Improving levels -Pt now appears to be Euvolemic and has some hepatojugular reflux (although without JVD) on examI/Os +1062 -Given hyponatremia now seen in at least 3 settings--hypervolemic, hypovolemic, and euvolemia---discussed possible cases with Dr. Antunez such as atypical infection which she mentions she will discuss further with Dr. Patten and/or intracranial and/or paraneoplastic process causing SIADH -Will D/C IVF (5) Dry eyes Current Visit: Yes Status: Acute Code(s): H04.123 - DRY EYE SYNDROME OF BILATERAL LACRIMAL GLANDS SNOMED Code(s): 594146880 Comment: -Placed on artificial Tears q4H -Discussed with Dr. Antunez if her complex pathology may prevent her from blinking and mentions that she does not see anything both clinically and radiologically given no other CN 7 deficits (6) Hypokalemia Current Visit: Yes Status: Acute Code(s): E87.6 - HYPOKALEMIA SNOMED Code( s): 57334753 Comment: -Corrected -Will continue to follow (7) Diabetes 1.5, managed as type 2 Current Visit: Yes Status: Acute Code(s): E10.9 - TYPE 1 DIABETES MELLITUS WITHOUT COMPLICATIONS SNOMED Code(s): 812883770 Comment: -Improved with low dose Lantus in addition to adjusted insulin Sliding scale -Will increase Lantus to 8 units SQ -Continue watchful waiting (8) DVT prophylaxis Current Visit: Yes Status: Acute Code(s): SRT4972 - SNOMED Code(s): 596455593 Comment: -Continue Heparin SQ to q12 given advanced age Status and Disposition: -Consider transfer to tertiary facility if the results of MRI of brain, Echo with bubble study, and possible MRI of back -Will discuss again with Neuro in AM
--- NOTE | 2018-03-28 15:28 | ECHO ---
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 The study was technically limited due to the patient's inability to lay in the left lateral decubitus position. Left Ventricle: The left ventricular chamber size is decreased. Mild concentric left ventricular hypertrophy is observed. The estimated ejection fraction is 60-65%. There is an E to A reversal in the mitral valve flow pattern suggestive of diastolic dysfunction. Left Atrium: The left atrial chamber size is normal. Right Ventricle: The right ventricular chamber size and systolic function are within normal limits. Right Atrium: The right atrial cavity size is normal. The bubble study is negative. A patent foramen ovale is not demonstrated with color Doppler and agitated contrast. Aortic Valve: The aortic valve leaflets are moderately thickened. Systolic excursion of the aortic valve cusps is reduced. There is aortic annular calcification. There is a trace of aortic regurgitation. There is moderate to severe aortic stenosis.The gradient/peak velocity may be underestimated due to techinical issues. The stenosis seems severe by 2d. Consider low gradient aortic stenosis. The mean gradient of the aortic valve is 6.2 mmHg. The aortic valve area, by peak velocities, is calculated at 1 cm2. The highest aortic valve velocity was obtained with the standard probe from the A5C view. Mitral Valve: Moderate mitral annular calcification present. The mitral valve leaflets are mildly thickened. Moderate mitral leaflet calcification is visualized. The papillary muscle heads appear calcified. There is a trace of mitral regurgitation. There is no evidence of mitral stenosis. Tricuspid Valve: The tricuspid valve leaflets are mildly thickened. There is trace to mild tricuspid regurgitation. No pulmonary hypertension is noted. Pulmonic Valve: The pulmonic valve structure is not well visualized. There is no evidence of pulmonic valve thickening. There is mild pulmonic regurgitation. dual jets. Pericardium: There is no significant pericardial effusion. A left pleural effusion is present. Aorta: The aortic root appears normal. There is no dilatation of the aortic arch. There is plaque visualized in the ascending aorta. Pulmonary Artery: The main pulmonary artery is not well visualized. Venous: The inferior vena cava is not visualized. Contrast: Intravenous agitated saline contrast was used to assess intracardiac shunting. Summary: There was not any prior study for comparison. Conclusions The study was technically limited due to the patient's inability to lay in the left lateral decubitus position. Mild concentric left ventricular hypertrophy is observed. The estimated ejection fraction is 60-65%. The bubble study is negative. Systolic excursion of the aortic valve cusps is reduced. There is moderate to severe aortic stenosis. The gradient and peak velocity may be underestimated due to techinical issues. The aortic stenosis seems severe by 2d. Consider low gradient aortic stenosis. Moderate mitral annular calcification present. The mitral valve leaflets are mildly thickened. There is a trace of mitral regurgitation. There is no evidence of mitral stenosis. There is trace to mild tricuspid regurgitation. There is mild pulmonic regurgitation. dual jets. Measurements Name Value Normal Range RVIDd (AP) 2D 1.8 cm (0.9 - 2.6) RVDdMajor (2D) 2.9 cm (2.2 - 4.4) RAd ISD 4CH 4.8 cm (3.4 - 4.9) RA (A4C)W 4.2 cm (2.9 - 4.6) IVSd (2D) 1.2 cm (0.6 - 1) LVPWd (2D) 1.1 cm (0.6 - 1) LVIDd (2D) 3.1 cm (3.6 - 5.4) LVIDs (2D) 2.2 cm - LV FS (2D) 30 % (25 - 45) Aortic Annulus 2 cm (1.4 - 2.6) Ao root diameter (2D) 2.2 cm (2.1 - 3.5) Ascending Ao 2.2 cm (2.1 - 3.4) Aortic arch 2 cm (1.8 - 3.4) LA dimension (AP) 2D 2.6 cm (2.3 - 3.8) LAd ISD 4CH 4.5 cm (2.9 - 5.3) LA ISD 4CH W 3.3 cm (2.5 - 4.5) Name Value Normal Range LA ESV SP 4CH (A/L) 32.98 ml - LA ESV SP 4CH (MOD) 29.64 ml - Name Value Normal Range MV E-wave Vmax 0.5 m/sec - MV deceleration time 214 msec - MV A-wave Vmax 0.6 m/sec - MV E:A ratio 0.8 ratio - LV septal e' Vmax 0.05 m/sec - LV lateral e' Vmax 0.07 m/sec - LV E:e' septal ratio 10 ratio - LV E:e' lateral ratio 7 ratio - Name Value Normal Range AV Vmax 1.8 m/sec - AV VTI 39 cm - AV peak gradient 13 mmHg - AV mean gradient 6.2 mmHg - LVOT diameter 1.8 cm - LVOT Vmax 0.7 m/sec - LVOT VTI 16 cm - LVOT peak gradient 2 mmHg - LVOT mean gradient 0.9 mmHg - DOI (VTI) 0.4 ratio - NOBLE (continuity Vmax) 1 cm2 - NOBLE (continuity VTI) 1 cm2 - KELLEE Vmax 0.5 m/sec - Name Value Normal Range TR Vmax 2.2 m/sec - TR peak gradient 19 mmHg - RAP 8 mmHg - RVSP 27 mmHg - Name Value Normal Range PV Vmax 0.6 m/sec - PV peak gradient 1.4 mmHg -
[2018-03-28] MEDS: Insulin GLARGINE(*) 1 UNITS UNIT SUBCUT SCH (15:35)
--- NOTE | 2018-03-28 23:12 | PN ---
PROGRESS NOTE: DATE OF SERVICE: 03/28/18 HISTORY OF PRESENT ILLNESS: Elizabeth Boss has had increased interaction noted. She was able to talk to me today and indicates that she had been very confused, and she had difficulty with vision. She also indicates at baseline, she has difficulty with vision, right greater than left eye. No one was present to be able to collaborate the validity of this history. She was able to tell me that her daughter had been visiting. PHYSICAL EXAMINATION: On examination, her most recent temperature was 98.6 degrees Fahrenheit, measured on her mandaeism. Her pulse was 67, respiratory rate was 16, saturation was 99%, and blood pressure was 156/72. She had a regular cardiac rhythm. Her lungs were clear to auscultation on the left with decreased air entry on the right. There was no carotid bruit. She opened her eyes immediately and said "hello" and her pupils continued to be small. She did look to the left. When looking to the right, she did not completely come all the way to the right. There seemed to be a skew deviation with the left eye slightly higher than the right. She did not blink to threat on the right. On the left, she was able to count fingers, but it was difficult for her. Her facial expression was symmetric. There was no dysarthria. She was able to lift both arms rapidly with good resistance proximally and distally. In her legs, she also was able to give good resistance proximally and distally. There was perseveration and slowness of movement. She denied any asymmetries to light touch. Her MAR was reviewed and she is on aspirin. She also has been restarted yesterday on ceftriaxone 2 g q.12 hours. Her Solu-Medrol was completed today 1 g a day for 3 days. Refer to the MAR for further details. LABORATORY DATA: Includes CBC with white count, which has increased slightly from 5.9 to 8.4. The neutrophil percentage continues to be elevated at 91.2%. Hemoglobin and hematocrit were 11.1, stable from previous and 32 respectively. Platelets were within normal limits. Her sodium is currently 131 with potassium at 3.3, chloride 90. Her BUN and creatinine ratio is elevated at 25. Glucose was 225. She had a troponin of 0. Her B1 came back elevated at 241. Her chest x-ray showed moderate right pleural effusion with atelectasis versus consolidation. Her cryptococcal antigen from CSF came back negative. Her trough vancomycin level from the 03/27/18 was 5.2, sedimentation rate from the 03/27/18 was 19, and she had a negative SSA, SSB, myeloperoxidase antibody and proteinase 3. IMPRESSION: A 77-year-old woman with recent nephrectomy for renal cell carcinoma with vena cava thrombectomy complicated by hyponatremia, who [place] [facility] [place] in mental status, for which there were multiple potential etiologies as outlined in my note yesterday. She has encephalitis of unclear etiology with abnormal LP, abnormal MRI. Regarding ischemia, we will try to further clarify with a repeat MRI, noncontrast with diffusion weighted images. I have also asked for echocardiogram with bubble study and this is pending. If positive, we will consider further imaging of the vena cava with MRI of the abdomen with contrast or CT abdomen and pelvis with contrast. AFib/Aflutter was noted. She is on aspirin. She has been transferred to telemetry. We are holding off on anticoagulation given the risk of bleeding in the setting of potential recent stroke with changes noted on MRI on Thursday. If there is PFO and thrombus, we will have to reconsider anticoagulation potentially sooner. Regarding infection, she is on ceftriaxone and as of yesterday, she still had significant vancomycin level. If she can tolerate MRI tomorrow, which she may be able as she is clinically improving, an MRI of the whole spine with contrast would be best to look for an abscess, this could be combined with MRI of the abdomen looking for vena cava thrombus if there is a PFO. Dr. Patten's input is very much appreciated. We will await VZV-PCR on CSF. Her viral panel on CSF is pending. Lyme serologies and Tick-Borne panel are also pending. Regarding inflammation and autoimmune etiology, she had her third dose of Solu- Medrol today. Her sed rate was normal and we will await c and pANCA and KYLIE. Her paraneoplastic antibody panel is pending. TIME SPENT: Over an hour was spent in the patient's care. Education was provided to the patient; however, it is unclear how much she understands. I am pleased to see how much she is interacting today. Dr. Dawn will assume Neurology consultation at the hospital tomorrow and I will sign out Mrs. Stack 's care to her. [id number]/[facility] #: [id number] THUY
[2018-03-29] MEDS: Artificial Tears* 15 ML BTL BOTH EYES SCH ×6 (01:44→21:28)
[2018-03-29] MEDS: Insulin LISPRO* 1 UNITS UNIT SUBCUT SCH ×4 (02:25→21:27)
[2018-03-29] MEDS: Metoprolol Tartrate IV* 1 MG/ML 5 ML VIAL IV PRN (04:09)
[2018-03-29 04:46] LABS: Hematocrit 26 % (35-47); Hemoglobin 8.9 g/dl (12.0-16.0); Mean Corpuscular HGB Conc 34 g/dl (31-36); Mean Corpuscular Hemoglobin 30 pg (27-31); Mean Corpuscular Volume 89 fL (80-97); Mean Platelet Volume 7.5 um3 (7.4-10.4); Platelet Count 349 10^3/ul (150-450); Red Blood Count 2.97 10^6/ul (4.00-5.40); Red Cell Distribution Width 18 % (10.5-15); White Blood Count 8.9 10^3/ul (3.5-10.8)
[2018-03-29 05:00] LABS: EGFR Non-African American 56.2 (>60)
[2018-03-29] MEDS: Levothyroxine INJ* 100 MCG/5 ML VIAL IV SCH (05:20)
[2018-03-29] MEDS: Losartan TAB* 25 MG PO SCH (09:14)
[2018-03-29] MEDS: Torsemide TAB* 20 MG PO SCH (09:16)
[2018-03-29] MEDS: Metoprolol Tartrate TAB* 25 MG PO SCH ×2 (09:17→20:57)
[2018-03-29] MEDS: Thiamine TAB* 100 MG TAB PO SCH (09:19)
[2018-03-29] MEDS: Aspirin 81 mg CHEW TAB* 81 MG TAB.CHEW PO SCH (09:19)
[2018-03-29] MEDS: Heparin VIAL(*) 5000 UNITS/ML VIAL (FIVE THOUSAND) SUBCUT SCH (09:20)
[2018-03-29] MEDS ORDERED: Potassium Chlor TAB* 20 MEQ TAB.ER PO ONE (09:35)
--- NOTE | 2018-03-29 09:37 | PN ---
Hospitalist Progress Note Date of Service: 03/29/18 Reviewed pt's lab data and held Heparin SQ due to drop in H&H. CBC STAT ordered. Also concerning is increased BUN? No report of GIB. Will continue to monitor. See my subsequent note for today later in the day.
[2018-03-29 10:10] LABS: ABS Basophils 0.1 10^3/ul (0-0.2); ABS Eosinophils 0 10^3/ul (0-0.6); ABS Lymphocytes 0.4 10^3/ul (1.0-4.8); ABS Monocytes 0.5 10^3/ul (0-0.8); ABS Neutrophils 8.2 10^3/ul (1.5-7.7); ABS Nucleated RBC 0 10^3/ul; Eosinophil % 0 % (0-6); Hematocrit 25 % (35-47); Hemoglobin 8.6 g/dl (12.0-16.0); Mean Corpuscular HGB Conc 34 g/dl (31-36); Mean Corpuscular Hemoglobin 30 pg (27-31); Mean Corpuscular Volume 90 fL (80-97); Mean Platelet Volume 7.3 um3 (7.4-10.4); Nucleated Red Blood Cells % 0.1; Platelet Count 316 10^3/ul (150-450); Red Blood Count 2.83 10^6/ul (4.00-5.40); Red Cell Distribution Width 18 % (10.5-15); White Blood Count 9.2 10^3/ul (3.5-10.8)
[2018-03-29] MEDS ORDERED: Potassium Chloride LIQUID* 20 MEQ PACKET PO ONE (11:00)
[2018-03-29] MEDS: LORazepam INJ* 2 MG/ML 1 ML VIAL IV PUSH PRN (11:44)
[2018-03-29] MEDS: cefTRIAXone(*) 2 GM in NS 0.9% 100 ML* 100 ML IVPB SCH (12:20)
--- NOTE | 2018-03-29 12:22 | RAD ---
HISTORY: evaluate for stroke vs. 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 Additionally, axial diffusion-weighted images were obtained with calculated apparent diffusion coefficients. FINDINGS: HEMORRHAGE/INFARCT: There is restricted diffusion within a gyriform distribution along the left posterior frontal, parietal, and occipital lobes and to lesser extent in the right occipital lobe. Elsewhere, there is no hemorrhage or acute infarct. MASSES/SHIFT: There is no mass or shift. EXTRA-AXIAL SPACES/MENINGES: There are no extra-axial fluid collections. SULCI AND VENTRICLES: The sulci and ventricles are normal in size and position for the patient's stated age. CEREBRUM: There is a gyriform pattern of elevated T2/FLAIR signal corresponding to the areas of restricted diffusion BRAINSTEM: There are no focal parenchymal abnormalities. CEREBELLUM: There are no focal parenchymal abnormalities. The cerebellar tonsils are normal in size and position. SELLA: The sella is normal. PINEAL: The pineal region is clear. CP ANGLE/TEMPORAL BONES: The labyrinthine structures are grossly normal. VESSELS: Normal flow-voids are noted within the visualized vertebral vasculature. DIFFUSION ABNORMALITIES: As noted above, there is a gyriform pattern of restricted diffusion within the left posterior frontal, anterior parietal, occipital, and right occipital lobes PARANASAL SINUSES/MASTOIDS: The paranasal sinuses are clear. There are bilateral mastoid effusions. ORBITS: The orbits are unremarkable. BONES AND SOFT TISSUE: No bone or soft tissue abnormalities are noted. OTHER: None IMPRESSION: 1. THERE IS GYRIFORM PATTERN OF RESTRICTED DIFFUSION WITHIN THE LEFT POSTERIOR FRONTAL, PARIETAL, AND OCCIPITAL LOBES AND TO LESSER EXTENT WITHIN THE RIGHT OCCIPITAL LOBE. THIS IS NEW WHEN COMPARED TO MARCH 22, 2018. THE ASSOCIATED FLAIR SIGNAL ABNORMALITIES HAVE PROGRESSED WITHIN THE RIGHT OCCIPITAL REGION WHEN COMPARED TO MARCH 26, 2018, THOUGH THE PREVIOUS EXAMINATION WAS LIMITED BY MOTION ARTIFACT. 2. THE DIFFERENTIAL INCLUDES ISCHEMIC STROKE. THE PATTERN SUGGESTS A WATERSHED DISTRIBUTION, AND THE CORTICAL DISTRIBUTION ALSO SUGGESTS THE SEQUELA OF HYPOPERFUSION EVENT. ALSO WITHIN THE DIFFERENTIAL IS POSTERIOR REVERSIBLE ENCEPHALOPATHY SYNDROME, THOUGH THIS DOES NOT USUALLY RESULT IN RESTRICTED DIFFUSION. 3. BILATERAL MASTOID EFFUSIONS. FINDINGS WERE REVIEWED WITH DR. FORMAN AT APPROXIMATELY 12:15 PM ON MARCH 29, 2018
[2018-03-29] MEDS ORDERED: Flumazenil* 0.1 MG/ML 5 ML MDV IV STA (14:23)
[2018-03-29] MEDS ORDERED: Flumazenil* 0.1 MG/ML 5 ML MDV IV PRN (15:06)
[2018-03-29] MEDS: Insulin GLARGINE(*) 1 UNITS UNIT SUBCUT SCH (15:23)
[2018-03-29] MEDS: KCL 20 MEQ/100 ML IVPREMIX* 20 MEQ/100 ML BAG IV SCH ×2 (15:25→18:58)
[2018-03-29 19:35] LABS: Hematocrit 21 % (35-47); Mean Corpuscular HGB Conc 33 g/dl (31-36); Mean Corpuscular Hemoglobin 30 pg (27-31); Mean Corpuscular Volume 90 fL (80-97); Mean Platelet Volume 7.4 um3 (7.4-10.4); Platelet Count 270 10^3/ul (150-450); Red Blood Count 2.35 10^6/ul (4.00-5.40); Red Cell Distribution Width 18 % (10.5-15); White Blood Count 10.4 10^3/ul (3.5-10.8)
[2018-03-29 20:04] LABS: ABS Basophils 0 10^3/ul (0-0.2); ABS Eosinophils 0 10^3/ul (0-0.6); ABS Lymphocytes 0.8 10^3/ul (1.0-4.8); ABS Monocytes 0.8 10^3/ul (0-0.8); ABS Neutrophils 8.7 10^3/ul (1.5-7.7); ABS Nucleated RBC 0 10^3/ul; Eosinophil % 0 % (0-6); Nucleated Red Blood Cells % 0.2
[2018-03-29] MEDS: Pantoprazole IV* 80 MG in NS 0.9% 250 ML* 250 ML IVPB SCH (20:26)
--- NOTE | 2018-03-29 21:33 | PN ---
Hospitalist Progress Note Date of Service: 03/29/18 Pt seen and examined. Meds and labs reviewed. Saw pt earlier in AM and order repeat H&H due to its decrease with mildly elevated BUN, although at that time no report of bleeding was found, pt comfortable, with stable VS. Heparin SQ was held and repeat H&Hs were drawn---the third H&H unfortunately was to be drawn in 30 mins when pt deteriorated. She was given 0.5 mg of Ativan for an DWI-MRI given previous ones had many motion artifacts. Came back lethargic and bradycardic per RN but with systolics in the 90s initially and was given Flumazenil, which initially woke pt up. After a few minutes, pt became hypotensive once more and CAT call was called. Pt given bolus and it seems that bradycardia was due to atrial bigemeny. Pt was given bolus, was found to have good pulses on carotids despite hypotension. No atropine was given since rate in tracing were in the 60s-70s. When pt arrived in ICU and was speaking with Dr. Hannah, nursing staff mentioned pt has melena. H&H was found to have decreased from 8.6 to 7.0 ROS: Unable to obtain reliable 14 point ROS PHYSICAL EXAM: GEN APPEARANCE: Lethargic HEENT: NC/AT, PERRLA, moist oral mucosa, (-) throat erythema NECK: Soft, supple, (-) cervical LAD, (-)JVD HEART: S1S2 WNL, RRR, No MRG CHEST: CTA, BL, GAE, No W/R/R ABD: Soft, ND/NT, NABS 4x Q EXT: No C/C/E SKIN: Warm to touch PSYCH: No active psychosis, hallucinations, depression, SI/HI ASSESSMENT AND PLAN: #GIB: -Likely UGIB given mildly elevated BUN noted and melena -Transferred care to Dr. Hannah who mentioned he will take care of ICU orders and will defer -Defer with GI (1) Encephalopathy acute #Acute encephalopathy, multifactorial: -DWI-MRI reveals possible CVA in watershed areas -Discussed options with both Drs. Alvarez and Anais---will continue watchful waiting for now -?underlying viral non-HSV encephalitis vs paraneoplastic vs metabolic encephalopathyvs. 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 Greene was not seen in the past. -Per Dr. Greene, she's likely not having seizures since there has been no reported seizure activity and two previous EEGs have showed non-specific encephalopathy without any epileptiform abnormalities -Continue Thiamine PO---high level after pt received IV Thiamine; was on low normal range in previous encounters -Speech eval recommends thin liquids and pureed food will place on a consistent carbohydrate diet -Pt placed on high dose Solumedrol and discussed with Dr. Greene given possible inflammatory and/or autoimmune process discussed while empiric steroids for presumed adrenal insufficiency is D/Cd---timing of the first time pt received steroid seems to have coincided with the rise in leukocytosis with sudden drop to normalcy (2) Atrial fibrillation -With Atrial bigeminy previously noted -Please see my previous note Status and Disposition: -Will defer with Dr. Hannah -Please see my previous notes on other issues
[2018-03-30] MEDS: cefTRIAXone(*) 2 GM in NS 0.9% 100 ML* 100 ML IVPB SCH ×3 (01:40→23:13)
[2018-03-30] MEDS: Artificial Tears* 15 ML BTL BOTH EYES SCH ×6 (01:55→20:34)
[2018-03-30] MEDS: Dextrose 50% Syringe 50 ML* 25 GM/50 ML SYRINGE IV PUSH PRN (02:14)
[2018-03-30] MEDS: Insulin LISPRO* 1 UNITS UNIT SUBCUT SCH ×4 (02:15→18:53)
[2018-03-30] MEDS: Levothyroxine INJ* 100 MCG/5 ML VIAL IV SCH (05:07)
[2018-03-30] MEDS: Pantoprazole IV* 80 MG in NS 0.9% 250 ML* 250 ML IVPB SCH (05:37)
--- NOTE | 2018-03-30 06:31 | PN ---
Progress Note - Progress Note Date of Service: 03/30/18 Note: Ordered a unit of blood in setting of drop in H/H and positive hemoccult stool. Started PPI drip. Patient with low normal glucose, changed fluids to D51/2NS at 50 cc/hr.
[2018-03-30] MEDS ORDERED: D5W 1/2 NS 1000 ML BAG* 1,000 ML IV SCH (07:00)
[2018-03-30 08:28] LABS: Hematocrit 26 % (35-47); Mean Corpuscular HGB Conc 35 g/dl (31-36); Mean Corpuscular Hemoglobin 31 pg (27-31); Mean Corpuscular Volume 88 fL (80-97); Mean Platelet Volume 7.5 um3 (7.4-10.4); Platelet Count 232 10^3/ul (150-450); Red Blood Count 2.91 10^6/ul (4.00-5.40); Red Cell Distribution Width 16 % (10.5-15); White Blood Count 7.8 10^3/ul (3.5-10.8)
[2018-03-30 08:48] LABS: EGFR Non-African American 53.6 (>60)
[2018-03-30] MEDS: Aspirin 81 mg CHEW TAB* 81 MG TAB.CHEW PO SCH (09:46)
[2018-03-30] MEDS: Metoprolol Tartrate TAB* 25 MG PO SCH (09:47)
[2018-03-30] MEDS: Thiamine TAB* 100 MG TAB PO SCH (09:47)
[2018-03-30] MEDS: Torsemide TAB* 20 MG PO SCH (09:47)
[2018-03-30] MEDS: Losartan TAB* 25 MG PO SCH (09:47)
[2018-03-30 09:59] LABS: ABS Basophils 0 10^3/ul (0-0.2); ABS Eosinophils 0 10^3/ul (0-0.6); ABS Lymphocytes 0.9 10^3/ul (1.0-4.8); ABS Monocytes 0.7 10^3/ul (0-0.8); ABS Neutrophils 6.2 10^3/ul (1.5-7.7); ABS Nucleated RBC 0 10^3/ul; Eosinophil % 0.1 % (0-6); Lymphocyte % 11.9 % (25-47); Nucleated Red Blood Cells % 0.1
--- NOTE | 2018-03-30 13:58 | PN ---
Date of Service: 03/30/18 Critical Care Services: Patient is awake but poorly responsive (will only open eyes and squeeze hand on command). No evidence of continued GI bleeding on protonix drip. MRI findings are most likely ischemic in origin, although the underlying process is unclear. Vital Signs: Temp Pulse Resp BP SpO2 FiO2 98 F 84 24 139/93 100 45 Physical Exam: Gen:Eyes open but poorly responsive to verbal commands HEENT:Pupils midposition and sluggishly reactive Lungs: Clear Cardiac: Reg rhythm Extremities:no cyanosis or edema. Neuro: Cannot raise limbs against gravity. Fluid Balance (Past 24 Hours): 03/28/18 03/29/18 03/30/18 06:59 06:59 06:59 Intake Total 4827 1178 1592 Output Total 5900 3775 1785 Balance -1073 -2597 -193 Weight 94 lb Intake: IV Fluids 3957 598 870 ABX 50 80 LR 1727 690 NS (0.9%) 962 PB - METHYLPREDNISOLONE 1268 548 Potassium 20 mEq 100 IVPB 756 100 103 ABX 100 ABX - CEFTRIAXONE 219 103 Magnesium 110 PB - METHYLPREDNISOLONE 108 Potassium 20 mEq 319 Medicated IV 216 GEN - Pantoprazole/ 216 Protonix Oral 114 480 100 Packed Cells 303 Output: Urine 0 0 Walls 5900 3775 1785 Other: Date of Last Bowel 03/29/2018 Movement # Bowel Movements 1 0 1 Estimated Stool Amount Small Medium Large NOTE: Fluid balance is about 3.5 liters negative over past few days. Labs: 03/29/18 19:25 WBC 10.4 RBC 2.35 L Hgb 7.0 Hct 21 MCV 90 MCH 30 MCHC 33 RDW 18 H Plt Count 270 03/29/18 21:50 ABG pH 7.55 H ABG pCO2 46 H ABG pO2 176 H ABG HCO3 37.7 H ABG O2 Saturation 99.8 H ABG Base Excess 16.3 H O2 Delivery Device oxymask FiO2 36 NOTE: ABGs consistent with a metabolic alkalosis. 03/30/18 03/30/18 08:15 08:15 WBC 7.8 Hgb 9.0 After one unit packed RBCs Hct 26 L MCV 88 Plt Count 232 Sodium 139 Potassium 3.5 Chloride 96 Carbon Dioxide 35 BUN 53 Creatinine 1.00 Glucose 98 POC Glucose (mg/dL) Calcium 8.3 L Studies: None today Nutrition: Oral intake negligible past 48 hrs. Impression: 1. GI bleeding most likely from "stress-related mucosal injury", and has subsided (which is common). 2. Nutritional status is poor, and oral intake has declined further over the past few days, so we should consider starting enteral tube feedings. 2. Mental status continues to deteriorate, presumably as a result of ischemic changes, but there is no clear understanding of the underlying process. Neurology service is actively involved (and I discussed case with Dr. Dawn today). Plan: 1. At this point, management consists mostly of general supportive care. 2. Will monitor Hb and Hct for evidence of continued GI bleeding 3. Continue Protonix drip for now. 4. Will discuss feeding tube placement with patient's daughter. 5. I have placed a call to patient's surgeon at [facility] (Dr. Calles), an await a reply. Critical Care Time: 55 minutes
--- NOTE | 2018-03-30 15:35 | PN ---
NEUROLOGY FOLLOWUP NOTE: DATE OF FOLLOWUP: 03/29/18 HISTORY: This is a 77-year-old woman with history of hypertension, diabetes, hypothyroidism, and renal cell carcinoma, who is status post right nephrectomy on 03/09/18 complicated by inferior vena cava thrombus, status post thrombectomy , whose course was also complicated by confusion and hyponatremia, who has been admitted to [facility] after being home for 1 day on 03/21/18. She has been seen by multiple neurologists including Dr. Garnett, Dr. Greene, Dr. Joe, and now myself. She has had a complicated course and extensive evaluation for her cognitive and functional changes. 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 She has been treated with antivirals, antibacterials as well as steroids. She has exhibited some improvement over the past week that she has been here. She still has multiple tests pending, including viral encephalitis panel, VZV PCR, Lyme, tick borne panel, and paraneoplastic panel. This morning, she underwent a repeat MRI scan with the aim to have diffusion weighted images to assess areas of cortical changes that were noted on her repeat MRI scan on 03/26. Unfortunately, she began to punch the inside of the scanner once she was down there for the test and had to be given 0.5 mg of IV lorazepam. Her nurse reports that since then she has been much less responsive and she has had an abnormal respiratory pattern. As such she was given flumazenil 0.2 mg IV at 1445 and then another dose at 1707 but continues to exhibit abnormal respiratory patterns and is significantly lethargic. She was not able to contribute to the history or tell me how she was feeling a result. PHYSICAL EXAMINATION: Vital Signs: Temperature 99.4, blood pressure 131/57, heart rate 64, oxygen saturation 91% on room air. On general examination, she was lying in her bed with her eyes either closed or half open. When I initially entered the room, she attempted to open her eyes and attempted to speak on one occasion but no sound came out and she was only able to attempt to mouth words. Her respiratory pattern was consistent with Jose A-Tsai pattern where she would have periods of apnea lasting up to 20 seconds followed by a period of deep respirations where she had some moaning arousal associated with it. Her heart is in an irregular rhythm and bradycardic. There is no obvious asymmetries in her lung sounds when she is not apneic. Neurologic Exam: She does not follow commands. Her pupils are pinpoint. Her oculocephalic maneuver appears intact. She does not blink to threat in either field. Her facial expression appears symmetric. She was not able to sustain her limbs antigravity. With noxious stimulation, she has decreased response in the left arm and has an extensor response to noxious on the right. She has withdrawal versus triple flexion response in the lower extremities to noxious. Reflexes are 2+ in the upper extremities, 1+ at the knees. No clonus at the ankles and both toes are upgoing. MEDICATIONS: I reviewed her MAR and she received lorazepam and flumazenil as described above. She is on ceftriaxone 2 g q. 12 hours as well as aspirin 81 mg daily. She received Solu-Medrol from 03/26 through 03/28, 1000 mg daily. DATA: White count is 9.2, hematocrit 25, hemoglobin 8.6, platelet count 316. Her BMP shows a potassium of 3.1, chloride of 90, CO2 of 36, BUN of 38, creatinine of 0.96, glucose of 120. Most recent fingerstick of 300 at 1340. Her KYLIE, ANCA, paraneoplastic panel, Lyme serologies, tick borne panel, and viral cephalitis panel are pending. I reviewed her repeat MRI scan today and discussed this with Dr. Castillo, the newer areas of cortical flare abnormality, which are noted in the right greater than left posterior regions as well as the right parietal region do show restricted diffusion, which he feels is most likely indicative of an ischemic process and potentially consistent with a period of hypoperfusion as they are located in the watershed regions between the MCA and HOUSE NURSE. She has not had a period of significant hypotension though I note that on 03/23 to 03/24 between 11 p.m. and 2 a.m., she had blood pressures that ran in the 100s/40s over those hours. Otherwise, he indicated that within the differential as well could be PRES though it is unusual to see restricted diffusion with this. Her echocardiogram showed no evidence for an intracardiac thrombus nor PFO. Her EF was 60% to 65%. She is noted to have czgiqtlu-ot-ebbrue aortic stenosis. IMPRESSION: Elizabeth Boss is a 77-year-old woman, status post recent nephrectomy for renal cell carcinoma, who presented to [facility] with encephalopathy of unclear etiology though multiple potential contributors have been identified. She has abnormal MRI potentially consistent with cortical areas of infarct with a question of whether this could have been due to period of hypoperfusion. I raised the question of whether these areas of infarct could be related to a localized vasculitis secondary to meningoencephalitis since her spinal fluid has certainly been suggestive of infectious/inflammatory process. It is possible that this could be the case and she has multiple tests pending to try to pin down a cause for her apparent meningoencephalitis though the overall picture is most consistent with a viral process. I note that she was empirically treated with steroids, which ended yesterday. At this point, I would continue her aspirin and would not consider anticoagulation given that embolic phenomenon is less likely to present with the findings on her MRI scan in the pattern in which they are seen. We have previously considered further imaging of her spine to look for evidence of an abscess but clearly she cannot undergo MRI scans without receiving sedation and now we seemed to be in a situation where she is having some respiratory compromise secondary to the benzodiazepine that she received earlier. As such I believe we should hold off on this. More pressing currently is her respiratory status and Dr. Russell is evaluating this and potentially transferring her for closer monitoring to the ICU though I believe he is going to consult with the ICU physician on this. She may need another dose of flumazenil as this respiratory pattern was not noted prior to her receiving lorazepam for her MRI scan today. We should avoid these sedating medications in the future. Otherwise, I would continue her on ceftriaxone for now and we will continue to follow along during her hospitalization. TIME SPENT: Over 45 minutes was spent in reviewing the chart and relevant studies including imaging studies, laboratory workup and previous neurology and hospitalist's notes in regard to the patient's care. [id number]/[facility] #: [id number] MTDTianna
[2018-03-30] MEDS ORDERED: Pantoprazole IV* 40 MG IV SCH (16:00)
[2018-03-31] MEDS: Dextrose 50% Syringe 50 ML* 25 GM/50 ML SYRINGE IV PUSH PRN (01:38)
[2018-03-31] MEDS: Artificial Tears* 15 ML BTL BOTH EYES SCH ×5 (01:38→22:08)
[2018-03-31] MEDS: Insulin LISPRO* 1 UNITS UNIT SUBCUT SCH ×4 (03:08→20:55)
[2018-03-31] MEDS: Levothyroxine INJ* 100 MCG/5 ML VIAL IV SCH (06:05)
[2018-03-31 06:34] LABS: Hematocrit 19 % (35-47); Hemoglobin 6.5 g/dl (12.0-16.0); Mean Corpuscular HGB Conc 35 g/dl (31-36); Mean Corpuscular Hemoglobin 32 pg (27-31); Mean Corpuscular Volume 90 fL (80-97); Mean Platelet Volume 7.8 um3 (7.4-10.4); Platelet Count 164 10^3/ul (150-450); Red Blood Count 2.07 10^6/ul (4.00-5.40); Red Cell Distribution Width 17 % (10.5-15); White Blood Count 6.6 10^3/ul (3.5-10.8)
[2018-03-31 06:50] LABS: EGFR Non-African American 77.1 (>60)
[2018-03-31] MEDS ORDERED: Pantoprazole IV* 40 MG IV SCH (09:00)
[2018-03-31] MEDS ORDERED: Pantoprazole IV* 80 MG in NS 0.9% 250 ML* 250 ML IVPB SCH (09:00)
[2018-03-31] MEDS: cefTRIAXone(*) 2 GM in NS 0.9% 100 ML* 100 ML IVPB SCH (10:33)
--- NOTE | 2018-03-31 10:39 | RAD ---
INDICATION: NG tube placement COMPARISON: Chest x-ray March 28, 2018 TECHNIQUE: An AP portable view obtained at 1010 hours is submitted. FINDINGS: Bones/Soft Tissues: There are no acute bony findings. There is a nasogastric tube coiled in the body of the stomach Cardiomediastinal: The cardiomediastinal silhouette is normal. Lungs: There is mild bilateral airspace disease with mild worsening Pleura: Bilateral pleural effusions right greater than left. Other: None IMPRESSION: NASOGASTRIC TUBE COILED IN BODY OF THE STOMACH. BASILAR AIRSPACE DISEASE WITH BILATERAL PLEURAL EFFUSIONS WITH MILD WORSENING.
[2018-03-31] MEDS ORDERED: Insulin LISPRO* 1 UNITS UNIT SUBCUT ONE (11:00)
--- NOTE | 2018-03-31 11:59 | PN ---
PROGRESS NOTE: DATE OF FOLLOWUP: 03/30/18 HISTORY: Last night, the patient was transferred to the ICU secondary to her abnormal respiratory pattern as well as some relative hypotension. Once she arrived in the ICU, she was found to have a large amount of melena and it is thought that she had stress-related gastric bleeding secondary to her critical illness with a possible contribution from recent high dose of steroids that she received. She is now on a PPI drip. I discussed the patient with Dr. Hannah and prior to my evaluation, he had indicated that she was essentially unresponsive and appearing much the same as she did on my evaluation yesterday, except that her breathing pattern was no longer consistent with a Jose A-Tsai pattern. The patient's daughter had apparently been in earlier today, but was not present at the time of my evaluation. MEDICATIONS: Reviewed and include: 1. Ceftriaxone 2 g daily. 2. D50 as needed, which was given at 2 a.m. as she had been having some issues with hypoglycemia. 3. Synthroid 75 mcg daily. 4. Metoprolol as needed. 5. Pantoprazole drip. 6. Aspirin has been discontinued secondary to her melena. PHYSICAL EXAMINATION: Vital Signs: Temperature 98 degrees, blood pressure 139/ 93, heart rate 81, oxygen saturation 100% on room air. On general examination, the patient appears very thin with decreased muscle mass. She was lying with her head towards the left on the pillow with her right eye closed, which is partially crusted shut and her left eye partially opened. Her heart is in an irregular rhythm. She has some drainage from her left arm with an erythematous area encompassing above and below her elbow with a pad on the bed collecting the serous drainage. On neurologic exam, she opened her eyes briefly to loud voice. She was able to follow some simple commands such as to close her eyes tightly and protrude her tongue. She was also able to squeeze my hand with her left hand, though not briskly and then she did not let go when asked to do so. She appeared at times to try to mouth words, but did not make any vocalizations. She was somewhat able to maintain her left arm antigravity, but not her right arm. Her tone appeared to be normal in her arms and legs. Her face appeared symmetric. Her pupils were still small at approximately 1.5 mm, but were reactive to light today. Her oculocephalic reflex is intact, but she was not able to cooperate with testing of eye movements, otherwise. Her toes are briskly upgoing bilaterally. DIAGNOSTIC STUDIES/LAB DATA: Her CBC shows a hemoglobin of 9 from 7 yesterday after receiving 1 unit of packed red blood cells. Her hematocrit is 26 today from 21 last evening. Her white count and platelet count are normal. Her blood gas yesterday showed a pH of 7.55, PCO2 of 46, PO2 of 176, and she was on 36% FiO2. Her BMP today shows a normal sodium of 139, CO2 of 35, BUN of 53, creatinine of 1.0 with an elevated BUN to creatinine ratio of 53. Her Lyme serology was negative. No other send out testing has yet been resulted. IMPRESSION AND PLAN: Elizabeth Boss is a 77-year-old woman with a history of renal cell carcinoma, status post nephrectomy at the end of February, complicated by postop delirium as well as vena cava thrombectomy who has been admitted to [facility] since 03/21/18 with change in mental status and functional decline. Her workup has been notable for abnormal MRI as well as encephalitis of unclear etiology with LP notable for elevated white blood cell count, elevated protein. Her MRI has been suggestive of areas of cortical ischemia, the differential of which includes a period of hypoperfusion affecting the watershed areas, unusual presentation of posterior reversible encephalopathy syndrome versus localized vasculopathy/vasculitis related to meningoencephalitis. She had been treated empirically with 3 days of high dose steroids. Yesterday, she had another decline in her respiratory and mental status, which occurred in the setting of benzodiazepine administration for MRI, but also hemodynamic compromise secondary to an upper GI bleed. As noted yesterday, she has multiple studies pending on her CSF as well as serology to look further into the potential etiologies of her meningoencephalitis. At this point, I think we should continue to monitor her as she appears to be slightly improved in terms of her mental status compared with yesterday and much of her decline could be related to the benzodiazepine administration as well as the hemodynamic changes rather than worsening of her underlying neurologic condition. In terms of further empiric treatment for a possible autoimmune encephalitis, which is on the differential, I would like to hold off on this for now for several reasons. For one, she has had this stress- related GI bleed, which could have been partially related to high dose of steroid use. Another potential therapy would be IVIG, but this carries risk of thrombosis and she has already had evidence of strokes on her MRI scan as well as the vena cava thrombus related to her renal cell carcinoma. Further, her MRI changes are not typical for autoimmune or paraneoplastic encephalitis and so , I think it is less likely to be the cause of her mental status changes. I would give consideration to transfer the patient to a higher level of care, and I would discuss this with the daughter when she arrives later or if she does not come this afternoon, then I may call her on the phone to discuss her thoughts. [id number]/[facility] #: [id number] THUY
--- NOTE | 2018-03-31 16:14 | PN ---
Date of Service: 03/31/18 Critical Care Services: More alert today. Hemoglobin dropped to 6.5, but no hemodynamic instability. NG tube placed and there is no evidence of active upper GI bleeding. Vital Signs: Temp Pulse Resp BP SpO2 FiO2 97.8 F 70 19 158/71 100 45 Physical Exam: Gen:Awake and responds slowly to verbal commands Lungs:Occasional rhonchi. No wheezes or crackles Extremities:No cyanosis or edema Neuro:Unable to move limbs against gravity Fluid Balance (Past 24 Hours): 03/31/18 06:59 Intake Total 2033.6 Output Total 1220 Balance 813.6 Weight 94 lb Intake: IV Fluids 1833.6 ABX ABX - CEFTRIAXONE 255 D5W 1/2 NS 404 LR 1104 NS (0.9%) 70.6 PB - METHYLPREDNISOLONE Potassium 20 mEq pentoprazole IVPB ABX ABX - CEFTRIAXONE Medicated IV 200 GEN - Pantoprazole/ 200 Protonix Oral Packed Cells Output: Urine Walls 1220 Other: Date of Last Bowel Movement # Bowel Movements 2 Estimated Stool Amount Medium Labs: 03/31/18 03/31/18 06:10 06:10 WBC 6.6 RBC 2.07 L Hgb 6.5 Hct 19 MCV 90 MCH 32 H MCHC 35 RDW 17 H Plt Count 164 MPV 7.8 Sodium 139 Potassium 3.4 L Chloride 99 L Carbon Dioxide 33 H Anion Gap 7 BUN 40 H Creatinine 0.73 Glucose 168 H Calcium 7.7 L Prealbumin 15 L Studies: None today Nutrition: Tube feeding with Glucerna started - target rate is 45 cc/hr. Impression: 1. Despite drop in hemoglobin, no evidence of active upper GI bleeding. 2. Improved mental status - probably due to improved hemodynamics after the original GI bleed. Plan: 1. Packed RBCs to get Hb > 7 g/dL 2. Start tube feedings - caloric target is 25 kcal/kg/day 3. D/C protonix drip Critical Care Time: 40 minutes (not including time spent with patient's daughter )
[2018-03-31 17:01] LABS: Hematocrit 28 % (35-47); Hemoglobin 10.1 g/dl (12.0-16.0)
[2018-03-31] MEDS ORDERED: Famotidine IV * 20 MG in NS 0.9% 100 ML* 100 ML IVPB SCH (21:00)
[2018-03-31] MEDS: Famotidine IV* 10 MG/ML 2 ML (20 mg) IV SCH (22:09)
[2018-04-01] MEDS: Artificial Tears* 15 ML BTL BOTH EYES SCH ×6 (00:54→19:46)
[2018-04-01] MEDS: Insulin LISPRO* 1 UNITS UNIT SUBCUT SCH ×4 (02:01→19:35)
[2018-04-01] MEDS: Levothyroxine INJ* 100 MCG/5 ML VIAL IV SCH (06:04)
[2018-04-01 06:25] LABS: Hematocrit 28 % (35-47); Hemoglobin 9.8 g/dl (12.0-16.0); Mean Corpuscular HGB Conc 35 g/dl (31-36); Mean Corpuscular Hemoglobin 31 pg (27-31); Mean Corpuscular Volume 89 fL (80-97); Mean Platelet Volume 7.6 um3 (7.4-10.4); Platelet Count 194 10^3/ul (150-450); Red Blood Count 3.12 10^6/ul (4.00-5.40); Red Cell Distribution Width 16 % (10.5-15); White Blood Count 10.6 10^3/ul (3.5-10.8)
[2018-04-01 06:40] LABS: EGFR Non-African American 71.4 (>60)
[2018-04-01] MEDS: Famotidine IV* 10 MG/ML 2 ML (20 mg) IV SCH ×2 (09:23→19:47)
--- NOTE | 2018-04-01 11:31 | PN ---
Critical Care Services: Mental status continues to improve, albeit slowly. Is awake and responds to verbal commands. Had an uneventful evening. No evidence of recurrent UGI bleeding (off protonix drip) Vital Signs: Temp Pulse Resp BP SpO2 FiO2 98.9 F 73 15 169/86 100 45 Physical Exam: Gen:Eyes open. HEENT: Inappropriate smile. Lungs:Clear Extremities:No cyanosis or edema. Neuro: Unable to raise arms or legs against gravity. Fluid Balance (Past 24 Hours): 04/01/18 06:59 Intake Total 1685.7 Output Total 1563 Balance +122.7 Weight 99 lb Intake: IV Fluids 1069.7 ABX ABX - CEFTRIAXONE 91 D5W 1/2 NS LR 912.7 NS (0.9%) Potassium 20 mEq pentoprazole 66 IVPB ABX - CEFTRIAXONE Medicated IV 154 GEN - Pantoprazole/ 154 Protonix Oral 0 Tube Feeding 153 Packed Cells 309 Output: Urine Walls 1563 Labs: 04/01/18 06:10 Sodium 142 Potassium 3.2 Chloride 101 Carbon Dioxide 36 BUN 40 Creatinine 0.78 Glucose 95 POC Glucose (mg/dL) Calcium 8.1 L TSH 6.81 04/01/18 04/01/18 06:10 08:03 WBC 10.6 Hgb 9.8 Hct 28 Plt Count 194 POC Glucose (mg/dL) 82 Studies: None today Nutrition: Tube feeding with Glucerna at 45 cc/hr Impression: 1. Mental status continues to be improved (although not normal) - initial change in mental status probably related to a drop in BP from an occult GI bleed. No evidence of recurrent GI bleeding. Mildly elevated TSH may indicate inadequate thyroid replacement. Plan: 1. Continue general supportive care. 2. Will give potassium replacement today and check serum K tomorrow. 3. Will repeat TSH before adjusting synthroid dose. Neurology service actively following this case. I have spoken to daughter about code status, and she is unwilling to institute a DNR order at this time. I have also been giving updates to the surgeon at [place] who did the nephrectomy (Dr. Calles - cell phone is [phone]) Critical Care Time: 40 minutes
[2018-04-01] MEDS: Heparin VIAL(*) 5000 UNITS/ML VIAL (FIVE THOUSAND) SUBCUT SCH ×2 (12:31→21:00)
[2018-04-01] MEDS: KCL 20 MEQ/100 ML IVPREMIX* 20 MEQ/100 ML BAG IV SCH ×2 (12:32→13:40)
--- NOTE | 2018-04-01 13:20 | PN ---
PROGRESS NOTE: DATE OF FOLLOWUP: 03/31/18 HISTORY: Mrs. Boss is slightly improved today. She is responding a bit more verbally and following some more commands, but she remains extremely weak in her upper and lower extremities. I spoke with her daughter Samia at length today and spent approximately 45 minutes reviewing imaging findings, the differential diagnosis and Mrs. Boss's course here thus far including a consideration for transfer to a higher level of care. MEDICATIONS: 1. Lispro sliding scale. 2. Lactated Ringer's 5 mL/hour. 3. Levothyroxine 75 mcg IV daily. 4. Metoprolol 5 mg IV q.6 hours p.r.n. tachycardia. 5. Ceftriaxone has been discontinued as has her pantoprazole drip. PHYSICAL EXAMINATION: Vital Signs: Temperature 97.8, blood pressure 168/97, heart rate 102, oxygen saturation 100% on 3 L. On general examination, Mrs. Boss is in no acute distress. She is very thin. She has drainage from both of her arms with disposable luly pads underneath them. She is in the bed with her eyes half open, which she briskly opens further to voice. Her heart is tachycardic. The lungs are clear anteriorly. Her right hand is swollen as is her forearm. On neurologic exam, she was oriented to [facility] and the month of March, but stated the year to be 1987. She was able to tell me her daughter' s name when I evaluated her earlier in the day prior to her daughter being present. She denies pain. She is able to follow some simple commands such as to close her eyes, protrude her tongue and squeeze on the left. She does not squeeze on the right. She is not able to follow a finger to test her eye movements, but is able to look towards the examiner's voice towards the left, but has more difficulty looking towards her daughter's voice to the right. She is able to cross midline to the right, but does not have complete horizontal gaze in that direction. She has some misalignment of her eyes with the right eye being relatively depressed and the daughter indicates that this is a longstanding feature of Mrs. Boss. Her john are full to threat bilaterally. She often has a fixed smile on her face, but is able to purse her lips to command. She has no antigravity strength in her upper or lower extremities. She does indicate sensation to noxious stimulation in her left upper and lower extremities, but not in her right upper extremity and not as briskly in her right lower extremity. Both toes are briskly upgoing. LABORATORY DATA: Hemoglobin 6.5, hematocrit 19 from 26 yesterday. She was given a unit of PRBC's today for this. Her BMP today was notable for BUN of 40 , creatinine of 0.73, potassium 3.4, chloride of 99, CO2 of 33. Glucose at 1: 30 in the morning was 49 and an hour later 127. Her KYLIE came back negative. Her tick borne panel is negative. IMPRESSION: A 77-year-old woman with renal cell carcinoma status post nephrectomy at the end of February complicated by postop delirium as well as vena cava infiltration of the carcinoma who has been admitted since 03/21/18 with encephalopathy and functional decline. As mentioned previously, her workup has been notable for abnormal MRI as well as encephalitis of unclear etiology with LP notable for elevated white blood cell count and elevated protein. Her MRI has been suggestive of areas of cortical ischemia, which may have been caused by a period of hypoperfusion versus an unusual presentation of PRES versus localized vasculopathy/vasculitis related to meningoencephalitis. I had an extensive discussion with her daughter today in review of her overall course as well as review of her imaging studies and the above specified differential. She has been slowly improving over the past 2 days with supportive care and avoidance of sedating medications. Her outstanding studies are trickling in and thus far, everything has been negative. I discussed with the daughter the possibility of transferring to a higher level of care such as to [facility], but given that her daughter works at [employer] and cannot leave her job for any length of time, she is hesitant to have her mother transferred to [place] where she would not be able to be easily involved without some assurance that this would affect her long-term outcome, which I of course could not give her. At this point, she is comfortable with her mother remaining in this hospital and comfortable with the plan to continue with supportive care at this point and continue to see how she does. She, of course , is eager to understand a prognosis for her mother which at this point is difficult to give, given that there is still uncertainty as to the exact etiology of her encephalopathy, imaging findings and CSF profile. As I think her overall picture is not typical for autoimmune or paraneoplastic encephalitis , I will hold off on further empiric treatment of that and specified this to her daughter. For now, as mentioned, we will continue supportive care and she is going to begin tube feedings through the NG tube that was placed by Dr. Hannah earlier today. TIME SPENT: Over 45 minutes were spent in evaluation of the patient on 2 separate occasions as well as in discussion with the daughter regarding differential diagnosis workup, hospital course and potential prognosis. [id number]/[facility] #: [id number] MTDD
[2018-04-02] MEDS: Artificial Tears* 15 ML BTL BOTH EYES SCH ×6 (00:14→20:17)
[2018-04-02] MEDS: Insulin LISPRO* 1 UNITS UNIT SUBCUT SCH ×4 (02:40→20:16)
[2018-04-02] MEDS: Levothyroxine INJ* 100 MCG/5 ML VIAL IV SCH (05:38)
[2018-04-02 05:49] LABS: Hematocrit 28 % (35-47); Hemoglobin 9.5 g/dl (12.0-16.0); Mean Corpuscular HGB Conc 35 g/dl (31-36); Mean Corpuscular Hemoglobin 31 pg (27-31); Mean Corpuscular Volume 91 fL (80-97); Mean Platelet Volume 7.7 um3 (7.4-10.4); Platelet Count 193 10^3/ul (150-450); Red Blood Count 3.03 10^6/ul (4.00-5.40); Red Cell Distribution Width 16 % (10.5-15); White Blood Count 8.6 10^3/ul (3.5-10.8)
[2018-04-02 06:04] LABS: EGFR Non-African American 66.5 (>60)
--- NOTE | 2018-04-02 07:04 | PN ---
PROGRESS NOTE: DATE OF FOLLOWUP: 04/01/18 - ROOM #446 HISTORY: No acute overnight events. Ms. Vogel daughter is at the bedside at the time of my evaluation and feels that she appeared a little bit more alert this morning than yesterday. I note that Elizabeth speaks only in a whisper and a questioned her daughter as to whether her voice was stronger at any point during her hospitalization here and she indicates that it was, but she cannot remember exactly when. The patient has not been intubated since her hospitalization here. On my evaluation, she denies any pain. Her daughter states that Elizabeth was aware of the current President when she came into the room today. MEDICATIONS: Reviewed and include: 1. Levothyroxine 75 mcg daily. 2. Metoprolol 5 mg IV q.6 p.r.n. tachycardia. 3. Sliding scale insulin. 4. Famotidine 20 mg IV b.i.d. PHYSICAL EXAMINATION: Vital Signs: Temperature 98.9, blood pressure 169/86, heart rate 73, oxygen saturation 100% on 3 L. On general examination, Mrs. Vogel eyes appeared to be more open today. When left undisturbed, she will drift off to sleep easily, but wakes up easily as well. As previously, she appears very thin with decreased muscle mass and has ecchymoses scattered over her extremities. Her abdominal incision appears to be healing well. She was aware of her location in the hospital and of the current President. She again is not able to track my finger, but can follow the examiner's face, though has more difficulty with tracking to the right. She has disconjugate gaze with the right eye being relatively depressed compared to the left. She has a nearly perpetual smile, but can follow commands to stick out her tongue and pursed her lips. She is able to lift her left hand off the pillow, but cannot raise the arm antigravity and does not support it when it is placed there. 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 She is not able to move the right arm at all. The right arm tone is flaccid while the left appears normal and the lower extremities appear to have normal tone. She is able to wiggle the toes on the right foot more briskly than the left, which I saw only move trace today. She otherwise does not have any movement of the lower extremities except to noxious stimulation, which appears it may be a reflexive movement. Both toes are upgoing. DIAGNOSTIC STUDIES/LAB DATA: Her hematocrit is stable at 28 and hemoglobin stable at 9.8. Chemistry panel today shows a potassium of 3.2, CO2 of 36, BUN of 40 with a BUN to creatinine ratio of 5.1, her calcium is 8.1. In terms of her outstanding studies, I note that her IgG index could not be performed secondary to clonidine not sufficient and same for the VDRL. Otherwise, no new data is available. IMPRESSION AND PLAN: A 77-year-old woman with a very complicated medical history and course consisting of renal cell carcinoma status post nephrectomy with vena cava involvement, admitted for encephalopathy and functional decline in the setting of multiple contributing factors. Neurologically, her workup has been notable for abnormal MRI with areas of cortical ischemia as well as abnormal CSF concerning for an infectious or inflammatory process. She has been slowly improving this week, but did experience a brisk upper GI bleed thought to be secondary to stress related mucosal injury. At this point, I have continued to hold off on any other empiric treatments for an autoimmune cause of her encephalitis given the potential risk- benefit ratio, which is considered to have high risk for her. In addition, it is felt that her clinical presentation in the context of the recent surgery as well as imaging characteristics is not typical for an autoimmune encephalitis. At this point, we will continue to support and observe her and she appears likely stable enough to go to the medical floor today. We will continue to keep her daughter informed of any changes. [id number]/[facility] #: [id number] [facility]ITALTianna
[2018-04-02] MEDS: Heparin VIAL(*) 5000 UNITS/ML VIAL (FIVE THOUSAND) SUBCUT SCH ×2 (09:11→20:17)
[2018-04-02] MEDS: Famotidine IV* 10 MG/ML 2 ML (20 mg) IV SCH ×2 (09:16→20:17)
--- NOTE | 2018-04-02 17:35 | PN ---
Subjective Date of Service: 04/02/18 Interval History: Patient seen and examined. Appears cachectic, lethargic. Will open eyes to tactile stimuli, only speaks in a whisper and very difficult to hear. Does not appear to be in pain. Objective Active Medications: Dextrose (D50w Syringe 50 Ml*) 12.5 gm IV PUSH .FOR FS < 60 - SS PRN PRN Reason: FS < 60 Famotidine (Pepcid Iv*) 20 mg IV BID [facility] Last Admin: 04/02/18 09:16 Dose: 20 mg Heparin Sodium (Porcine) (Heparin Flush Picc/Ml/Cvc(*)) 1 - 3 ml FLUSH 0600, 1800 [facility]; Protocol Last Admin: 04/02/18 05:17 Dose: 2 ml Heparin Sodium (Porcine) (Heparin Vial(*)) 5,000 units SUBCUT Q12HR [facility] Last Admin: 04/02/18 09:11 Dose: 5,000 units Lactated Ringer's (Lactated Ringers 1000 Ml Bag*) 1,000 mls @ 5 mls/hr IV PER RATE [facility] Last Admin: 04/02/18 09:19 Dose: 5 mls/hr Insulin Human Lispro (Humalog*) 0 units SUBCUT 0200,0800,1400,2000 [facility]; Protocol Last Admin: 04/02/18 14:16 Dose: 3 units Levothyroxine Sodium (Synthroid Inj*) 75 mcg IV 0600 [facility] Last Admin: 04/02/18 05:38 Dose: 75 mcg Metoprolol Tartrate (Lopressor Iv*) 5 mg IV Q6H PRN PRN Reason: TACHYCARDIA Last Admin: 03/29/18 04:09 Dose: 5 mg Polyvinyl Alcohol (Polyvinyl Alcohol 1.4% Opth*) 1 drop BOTH EYES Q4H [facility] Last Admin: 04/02/18 12:50 Dose: 1 drop Vital Signs - 8 hr 04/02/18 11:18 Temperature 99.9 F Pulse Rate 85 Respiratory 12 Rate Blood Pressure 129/71 (mmHg) O2 Sat by Pulse 98 Oximetry Oxygen Devices in Use Now: Nasal Cannula Appearance: frail, cachectic Eyes: PERRLA - disconjugate gaze Ears/Nose/Mouth/Throat: - - dry oral mucosa, NG tube in place Neck: NL Appearance and Movements; NL JVP, Trachea Midline Respiratory: Symmetrical Chest Expansion and Respiratory Effort, Clear to Auscultation Cardiovascular: NL Sounds; No Murmurs; No JVD Abdominal: NL Sounds; No Tenderness; No Distention - dressing CDI Skin: - - echymosis UE Neurological: - - general weakness Nutrition: - - NGT feeds Result Diagrams: 04/02/18 05:25 04/02/18 05:25 Additional Lab and Data: Lab Results 03/21/18 03/21/18 Range/Units 15:26 15:34 WBC 7.0 (3.5-10.8) 10^3/ul RBC 4.35 (4.0-5.4) 10^6/ul Hgb 12.6 (12.0-16.0) g/dl Hct 38 (35-47) % MCV 87 (80-97) fL MCH 29 (27-31) pg MCHC 33 (31-36) g/dl RDW 18 H (10.5-15) % Plt Count 456 H (150-450) 10^3/ul MPV 6.9 L (7.4-10.4) um3 Neut % (Auto) 70.4 (38-83) % Lymph % (Auto) 16.1 L (25-47) % [place] % (Auto) 8.3 H (0-7) % Eos % (Auto) 3.9 (0-6) % Baso % (Auto) 1.3 (0-2) % Absolute Neuts (auto) 5.0 (1.5-7.7) 10^3/ul Absolute Lymphs (auto) 1.1 (1.0-4.8) 10^3/ul Absolute Monos (auto) 0.6 (0-0.8) 10^3/ul Absolute Eos (auto) 0.3 (0-0.6) 10^3/ul Absolute Basos (auto) 0.1 (0-0.2) 10^3/ul Absolute Nucleated RBC 0 10^3/ul Nucleated RBC % 0.1 POC Glucose (mg/dL) 59 L (70-100) mg/dL Microbiology and Other Data: Microbiology 03/23/18 14:00 CSF Gram Stain (Tube 3) - Final Cerebral Spinal Fluid 03/22/18 04:10 Nasal Screen MRSA (PCR)(SAMANTHA) - Final Nasal Mrsa Not Detected Diagnostic Imaging: EEG from 03/24/2018: moderate encephalopathy. No epileptiform abnormalities. EEG 03/23/2018: read by Dr. Garnett. non-specific encephalopathy MRI brain without contrast on 03/22/2018: non-specific white matter changes with generalized cortical atrophy CT and CTA head without contrast on 03/21/2018: age appropriate chronic white matter changes and atrophy. No hemorrhage. CTA no large vessel occlusion or aneurysm. There was R>L pleural large pleural effusions. Assess/Plan/Problems-Billing This is a 77 year old female with complex comorbid conditions that presented to hospital with encephalopathy of unclear etiology, hyponatremia, hyperglycemia, s /p nephrectomy. She has had ICU stay and work up for viral, bacterial and autoimmune etiologies, which are essentially negative. LP and viral serologies are unremarkable. Neuro following. Patient making very little progress after being downgraded from ICU - Patient Problems (1) Encephalopathy acute Code(s): G93.40 - ENCEPHALOPATHY, UNSPECIFIED SNOMED Code(s): 87431736 Comment: - Multifactorial with no clear etiology - No acute seizures, brain pathology or neoplastic disease - Per neurology, continue monitoring for resolution of symptoms - Should discuss goals of care with daughter - Viral panel of CSF not yielding any appreciable results (2) Status post nephrectomy Code(s): Z90.5 - ACQUIRED ABSENCE OF KIDNEY SNOMED Code(s): 184776185 Comment: - Continue wound care to surgical site, monitor renal function daily (3) Diabetes 1.5, managed as type 2 Code(s): E10.9 - TYPE 1 DIABETES MELLITUS WITHOUT COMPLICATIONS SNOMED Code(s) : 718205997 Comment: - Continue SS coverage with lispro - Stable (4) Recurrent right pleural effusion Code(s): J90 - PLEURAL EFFUSION, NOT ELSEWHERE CLASSIFIED SNOMED Code(s): 38245369 Comment: - Interval changes/increase on xray of 03/31 - Does not appear to be in respiratory distress (5) Electrolyte abnormality Code(s): E87.8 - OTH DISORDERS OF ELECTROLYTE AND FLUID BALANCE, NEC SNOMED Code(s): 727934917 Comment: - Repleted and resolved, continue to monitor while on tube feeds (6) GI bleed Code(s): K92.2 - GASTROINTESTINAL HEMORRHAGE, UNSPECIFIED SNOMED Code(s): 99898902 Comment: - Was on protonix drip, now DCd, continue daily PPI - Monitor H&H (7) Dysphagia Code(s): R13.10 - DYSPHAGIA, UNSPECIFIED SNOMED Code(s): 04941466 Comment: - continue NGT feeds - If mentation improves, will have speech evaluate (8) DVT prophylaxis Code(s): OFU0643 - SNOMED Code(s): 388547051 Comment: - Continue Heparin SQ q12 (9) Full code status Code(s): Z78.9 - OTHER SPECIFIED HEALTH STATUS SNOMED Code(s): 577905251 Status and Disposition: Remain inpatient. Patient appears to be making a very slow recovery. Should plan for family meeting for goals of care if she does not improve.
[2018-04-03] MEDS: Artificial Tears* 15 ML BTL BOTH EYES SCH ×6 (00:42→19:36)
[2018-04-03] MEDS: Insulin LISPRO* 1 UNITS UNIT SUBCUT SCH ×4 (01:54→19:35)
[2018-04-03] MEDS: Levothyroxine INJ* 100 MCG/5 ML VIAL IV SCH (05:30)
--- NOTE | 2018-04-03 07:35 | PN ---
Subjective Date of Service: 04/03/18 Interval History: No change in status overnight. She remains very lethargic, will whisper some words, unintelligible. Not really following any commands on exam Objective Active Medications: Dextrose (D50w Syringe 50 Ml*) 12.5 gm IV PUSH .FOR FS < 60 - SS PRN PRN Reason: FS < 60 Famotidine (Pepcid Iv*) 20 mg IV BID [facility] Last Admin: 04/02/18 20:17 Dose: 20 mg Heparin Sodium (Porcine) (Heparin Flush Picc/Ml/Cvc(*)) 1 - 3 ml FLUSH 0600, 1800 [facility]; Protocol Last Admin: 04/03/18 05:38 Dose: 2 ml Heparin Sodium (Porcine) (Heparin Vial(*)) 5,000 units SUBCUT Q12HR [facility] Last Admin: 04/02/18 20:17 Dose: 5,000 units Lactated Ringer's (Lactated Ringers 1000 Ml Bag*) 1,000 mls @ 5 mls/hr IV PER RATE [facility] Last Admin: 04/02/18 09:19 Dose: 5 mls/hr Insulin Human Lispro (Humalog*) 0 units SUBCUT 0200,0800,1400,2000 [facility]; Protocol Last Admin: 04/03/18 01:54 Dose: 12 units Levothyroxine Sodium (Synthroid Inj*) 75 mcg IV 0600 [facility] Last Admin: 04/03/18 05:30 Dose: 75 mcg Metoprolol Tartrate (Lopressor Iv*) 5 mg IV Q6H PRN PRN Reason: TACHYCARDIA Last Admin: 03/29/18 04:09 Dose: 5 mg Polyvinyl Alcohol (Polyvinyl Alcohol 1.4% Opth*) 1 drop BOTH EYES Q4H [facility] Last Admin: 04/03/18 04:19 Dose: 1 drop Vital Signs 04/02/18 04/02/18 04/02/18 07:36 08:00 11:18 Temperature 98.6 F 99.9 F Pulse Rate 73 85 Respiratory 16 16 12 Rate Blood Pressure 129/66 129/71 (mmHg) O2 Sat by Pulse 98 98 Oximetry 04/02/18 04/02/18 04/03/18 19:17 20:00 00:48 Temperature 98.8 F 98.9 F Pulse Rate 75 80 Respiratory 16 17 16 Rate Blood Pressure 126/59 142/76 (mmHg) O2 Sat by Pulse 97 96 Oximetry 04/03/18 03:50 Temperature 98.8 F Pulse Rate 112 Respiratory 16 Rate Blood Pressure 133/73 (mmHg) O2 Sat by Pulse 98 Oximetry Oxygen Devices in Use Now: None Neurology Exam: General: Thin, frail female, lying comfortably in bed, NGT in place. No signs of distress HEENT: Normocephalic/atraumatic Chest: Clear to auscultation bilaterally Cardiovascular: Regular rate and rhythm Extremities: Thin with wasting, no edema present Neurological Findings: Somnolent but awakens, smiles Speech: whispers several words, otherwise no significant speech Cranial Nerve: PERRL, Face symmetric, non-compliant with exam, does not open mouth or track Motor: No significant movement, will not follow any commands Deep Tendon Reflex: Absent at the patella, equivocal Babinski No tremors Result Diagrams: 04/02/18 05:25 04/02/18 05:25 Additional Lab and Data: Lab Results 03/21/18 03/21/18 Range/Units 15:26 15:34 WBC 7.0 (3.5-10.8) 10^3/ul RBC 4.35 (4.0-5.4) 10^6/ul Hgb 12.6 (12.0-16.0) g/dl Hct 38 (35-47) % MCV 87 (80-97) fL MCH 29 (27-31) pg MCHC 33 (31-36) g/dl RDW 18 H (10.5-15) % Plt Count 456 H (150-450) 10^3/ul MPV 6.9 L (7.4-10.4) um3 Neut % (Auto) 70.4 (38-83) % Lymph % (Auto) 16.1 L (25-47) % [place] % (Auto) 8.3 H (0-7) % Eos % (Auto) 3.9 (0-6) % Baso % (Auto) 1.3 (0-2) % Absolute Neuts (auto) 5.0 (1.5-7.7) 10^3/ul Absolute Lymphs (auto) 1.1 (1.0-4.8) 10^3/ul Absolute Monos (auto) 0.6 (0-0.8) 10^3/ul Absolute Eos (auto) 0.3 (0-0.6) 10^3/ul Absolute Basos (auto) 0.1 (0-0.2) 10^3/ul Absolute Nucleated RBC 0 10^3/ul Nucleated RBC % 0.1 POC Glucose (mg/dL) 59 L (70-100) mg/dL Microbiology and Other Data: Microbiology 03/23/18 14:00 CSF Gram Stain (Tube 3) - Final Cerebral Spinal Fluid 03/22/18 04:10 Nasal Screen MRSA (PCR)(SAMANTHA) - Final Nasal Mrsa Not Detected Diagnostic Imaging: EEG from 03/24/2018: moderate encephalopathy. No epileptiform abnormalities. EEG 03/23/2018: read by Dr. Garnett. non-specific encephalopathy MRI brain without contrast on 03/22/2018: non-specific white matter changes with generalized cortical atrophy CT and CTA head without contrast on 03/21/2018: age appropriate chronic white matter changes and atrophy. No hemorrhage. CTA no large vessel occlusion or aneurysm. There was R>L pleural large pleural effusions. Assessment/Plan 77 year old with history of encephalopathy of unclear origin. Has had an extensive neurologic workup with not clear cut cause but some ischemia on MRI and abnormal CSF findings. 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 In these cases, steroids can be beneficial at times but Dr. Dawn attempted steroids and she developed a GI bleed. In her current state, the risks of steroid treatment outweigh the benefits. With a history of RCC, status post nephrectomy and recent ischemia, IVIG is not an option. At this point, I believe care is mainly supportive. I have nothing further to offer as far as treatment is concerned right now. Per Primary note, it appears family conference is planned. I will follow along but no new recs
[2018-04-03] MEDS: Heparin VIAL(*) 5000 UNITS/ML VIAL (FIVE THOUSAND) SUBCUT SCH (10:51)
[2018-04-03] MEDS: Famotidine IV* 10 MG/ML 2 ML (20 mg) IV SCH ×2 (11:05→21:08)
--- NOTE | 2018-04-03 12:20 | PN ---
Subjective Date of Service: 04/03/18 Interval History: Patient seen and examined. Will smile or grimace to voice, but no meaningful interaction otherwise. Tries to speak in a whisper but words are unintelligible. Unable to obtain ROS. Objective Active Medications: Dextrose (D50w Syringe 50 Ml*) 12.5 gm IV PUSH .FOR FS < 60 - SS PRN PRN Reason: FS < 60 Famotidine (Pepcid Iv*) 20 mg IV BID [facility] Last Admin: 04/03/18 11:05 Dose: 20 mg Heparin Sodium (Porcine) (Heparin Flush Picc/Ml/Cvc(*)) 1 - 3 ml FLUSH 0600, 1800 [facility]; Protocol Last Admin: 04/03/18 05:38 Dose: 2 ml Heparin Sodium (Porcine) (Heparin Vial(*)) 5,000 units SUBCUT Q12HR [facility] Last Admin: 04/03/18 10:51 Dose: Not Given Lactated Ringer's (Lactated Ringers 1000 Ml Bag*) 1,000 mls @ 5 mls/hr IV PER RATE [facility] Last Admin: 04/02/18 09:19 Dose: 5 mls/hr Insulin Human Lispro (Humalog*) 0 units SUBCUT 0200,0800,1400,2000 [facility]; Protocol Last Admin: 04/03/18 10:51 Dose: Not Given Levothyroxine Sodium (Synthroid Inj*) 75 mcg IV 0600 [facility] Last Admin: 04/03/18 05:30 Dose: 75 mcg Metoprolol Tartrate (Lopressor Iv*) 5 mg IV Q6H PRN PRN Reason: TACHYCARDIA Last Admin: 03/29/18 04:09 Dose: 5 mg Polyvinyl Alcohol (Polyvinyl Alcohol 1.4% Opth*) 1 drop BOTH EYES Q4H [facility] Last Admin: 04/03/18 11:04 Dose: 1 drop Vital Signs - 8 hr 04/03/18 04/03/18 08:35 11:16 Temperature 97 F 98.1 F Pulse Rate 43 91 Respiratory 16 20 Rate Blood Pressure 128/63 135/69 (mmHg) O2 Sat by Pulse 97 98 Oximetry Oxygen Devices in Use Now: None Appearance: Lethargic, emaciated Eyes: No Scleral Icterus Ears/Nose/Mouth/Throat: - - NG tube to nare Neck: NL Appearance and Movements; NL JVP Respiratory: Symmetrical Chest Expansion and Respiratory Effort, Clear to Auscultation Cardiovascular: NL Sounds; No Murmurs; No JVD, No Edema Neurological: - - not following commands, appears tense with contracted position Nutrition: - - NGT feedings glucerna continuous Result Diagrams: 04/02/18 05:25 04/02/18 05:25 Additional Lab and Data: Lab Results 03/21/18 03/21/18 Range/Units 15:26 15:34 WBC 7.0 (3.5-10.8) 10^3/ul RBC 4.35 (4.0-5.4) 10^6/ul Hgb 12.6 (12.0-16.0) g/dl Hct 38 (35-47) % MCV 87 (80-97) fL MCH 29 (27-31) pg MCHC 33 (31-36) g/dl RDW 18 H (10.5-15) % Plt Count 456 H (150-450) 10^3/ul MPV 6.9 L (7.4-10.4) um3 Neut % (Auto) 70.4 (38-83) % Lymph % (Auto) 16.1 L (25-47) % Andrews % (Auto) 8.3 H (0-7) % Eos % (Auto) 3.9 (0-6) % Baso % (Auto) 1.3 (0-2) % Absolute Neuts (auto) 5.0 (1.5-7.7) 10^3/ul Absolute Lymphs (auto) 1.1 (1.0-4.8) 10^3/ul Absolute Monos (auto) 0.6 (0-0.8) 10^3/ul Absolute Eos (auto) 0.3 (0-0.6) 10^3/ul Absolute Basos (auto) 0.1 (0-0.2) 10^3/ul Absolute Nucleated RBC 0 10^3/ul Nucleated RBC % 0.1 POC Glucose (mg/dL) 59 L (70-100) mg/dL Microbiology and Other Data: Microbiology 03/23/18 14:00 CSF Gram Stain (Tube 3) - Final Cerebral Spinal Fluid 03/22/18 04:10 Nasal Screen MRSA (PCR)(SAMANTHA) - Final Nasal Mrsa Not Detected Diagnostic Imaging: EEG from 03/24/2018: moderate encephalopathy. No epileptiform abnormalities. EEG 03/23/2018: read by Dr. Garnett. non-specific encephalopathy MRI brain without contrast on 03/22/2018: non-specific white matter changes with generalized cortical atrophy CT and CTA head without contrast on 03/21/2018: age appropriate chronic white matter changes and atrophy. No hemorrhage. CTA no large vessel occlusion or aneurysm. There was R>L pleural large pleural effusions. Assess/Plan/Problems-Billing This is a 77 year old female with encephalopathy and renal carcinoma, s/p nephrectomy on 03/09/18 that has had extensive workup with stay in the ICU. Her workup has not yielded any definitive etiology for her current state. Per neurology, may likely be autoimmune vs. paraneoplastic, however, her course has been complicated by GIB, hypotension in setting of steroid administration. Her mentation continues to be poor and response minimal. - Patient Problems (1) Encephalopathy acute Code(s): G93.40 - ENCEPHALOPATHY, UNSPECIFIED SNOMED Code(s): 01633922 Comment: - Multifactorial with no clear etiology, viral studies negative - Extensive discussion with Dr. Phelps today, at this point, it would seem that we cannot offer any treatment that the patient would be able to tolerate given her frail condition - Family meeting with daughter Radha, who has updated patient's MOLST to reflect DNR and no PEG tube. She states that her mother would not want to be living on artificial means of support. - Recommend hospice evaluation and comfort measures, daughter agreeable, MOSLT updated to reflect daughter and patient's wishes (2) Status post nephrectomy Code(s): Z90.5 - ACQUIRED ABSENCE OF KIDNEY SNOMED Code(s): 577398858 Comment: - Continue assessment of surgical site (3) Diabetes 1.5, managed as type 2 Code(s): E10.9 - TYPE 1 DIABETES MELLITUS WITHOUT COMPLICATIONS SNOMED Code(s) : 296532769 Comment: - Currently on glucerna NGT feeds with lispro SS, however daughter does not want PEG tube and states her mother would not want it either - Highly recommend swallow eval, as PEG tube not an option per daughter and patient is high risk for skin breakdown at the nares 2/2 NG tube (4) Recurrent right pleural effusion Code(s): J90 - PLEURAL EFFUSION, NOT ELSEWHERE CLASSIFIED SNOMED Code(s): 98484200 Comment: - Interval changes/increase on xray of 03/31 - Does not appear to be in respiratory distress - supportive care (5) Electrolyte abnormality Code(s): E87.8 - OTH DISORDERS OF ELECTROLYTE AND FLUID BALANCE, NEC SNOMED Code(s): 335035051 Comment: - Repleted and resolved, continue to monitor while on tube feeds (6) GI bleed Code(s): K92.2 - GASTROINTESTINAL HEMORRHAGE, UNSPECIFIED SNOMED Code(s): 89956811 Comment: - Was on protonix drip, now DCd, continue daily PPI (7) Dysphagia Code(s): R13.10 - DYSPHAGIA, UNSPECIFIED SNOMED Code(s): 67593109 Comment: - continue NGT feeds - If mentation improves, will have speech evaluate (8) DVT prophylaxis Code(s): MHB9943 - SNOMED Code(s): 536063597 Comment: - Consider DC heparin (9) DNR (do not resuscitate) discussion Code(s): Z71.89 - OTHER SPECIFIED COUNSELING SNOMED Code(s): 950693909 Comment: - Family meeting with daughter and Dr. King Jaime HENDERSON updated to reflect DNR/DNR/No PEG Status and Disposition: Pending swallow eval, daughter is agreeable to comfort measures and palliative/ hospice consultation. Will add comfort meds and discuss with case management regarding referral.
[2018-04-03] MEDS ORDERED: Morphine ORAL CONCENTRATE* 5 MG/0.25 ML ORAL.SYRIN SL PRN (13:11)
[2018-04-03] MEDS ORDERED: LORazepam INJ* 2 MG/ML 1 ML VIAL IV PUSH PRN (13:11)
[2018-04-03] MEDS ORDERED: Dextrose 50% Syringe 50 ML* 25 GM/50 ML SYRINGE IV PUSH PRN (15:31)
[2018-04-03] MEDS ORDERED: Insulin LISPRO* 1 UNITS UNIT SUBCUT ONE (15:31)
[2018-04-04] MEDS: Artificial Tears* 15 ML BTL BOTH EYES SCH ×4 (00:18→15:13)
[2018-04-04] MEDS ORDERED: Insulin LISPRO* 1 UNITS UNIT SUBCUT ONE (03:25)
[2018-04-04] MEDS: Insulin LISPRO* 1 UNITS UNIT SUBCUT SCH ×2 (03:39→08:30)
[2018-04-04] MEDS ORDERED: Insulin GLARGINE(*) 1 UNITS UNIT SUBCUT SCH (04:00)
[2018-04-04] MEDS: Levothyroxine INJ* 100 MCG/5 ML VIAL IV SCH (05:56)
[2018-04-04] MEDS: Famotidine IV* 10 MG/ML 2 ML (20 mg) IV SCH (08:42)
[2018-04-04 11:54] VITALS: BP 120/58
--- NOTE | 2018-04-04 15:07 | PN ---
Subjective Date of Service: 04/04/18 Interval History: Patient made comfort care by family and appears to be in no pain at this time. No response when examined. No Response to verbal stimuli. Discussed comfort care with daughter and she was agreeable to ending tube feeding and discontinuing life sustaining treatments. Family History: Unchanged from Admission Social History: Unchanged from Admission Past Medical History: Unchanged from Admission Objective Active Medications: Dextrose (D50w Syringe 50 Ml*) 12.5 gm IV PUSH .FOR FS < 60 - SS PRN PRN Reason: FS < 60 Dextrose (D50w Syringe 50 Ml*) 12.5 gm IV PUSH .FOR FS < 60 - SS PRN PRN Reason: FS < 60 Heparin Sodium (Porcine) (Heparin Flush Picc/Ml/Cvc(*)) 1 - 3 ml FLUSH 0600, 1800 [facility]; Protocol Last Admin: 04/04/18 05:54 Dose: 1 ml Lorazepam (Ativan Inj*) 1 mg IV PUSH Q6H PRN PRN Reason: ANXIETY Morphine Sulfate (Morphine Oral Concentrate*) 5 mg SL Q2H PRN PRN Reason: PAIN Last Admin: 04/04/18 05:54 Dose: 5 mg Polyvinyl Alcohol (Polyvinyl Alcohol 1.4% Opth*) 1 drop BOTH EYES Q4H [facility] Last Admin: 04/04/18 08:42 Dose: 1 drop Vital Signs - 8 hr 04/04/18 04/04/18 04/04/18 07:39 08:00 08:29 Pulse Rate 113 Respiratory 20 14 18 Rate Blood Pressure 120/58 (mmHg) O2 Sat by Pulse 100 Oximetry Oxygen Devices in Use Now: None Appearance: Patient is a 77yo female who appears stated age and is sitting in the bed in NAD. Eyes: No Scleral Icterus, PERRLA Neck: NL Appearance and Movements; NL JVP Respiratory: Symmetrical Chest Expansion and Respiratory Effort, Clear to Auscultation Cardiovascular: NL Sounds; No Murmurs; No JVD, No Edema, - - Tachycardic. Abdominal: NL Sounds; No Tenderness; No Distention, No Hepatosplenomegaly Neurological: - - Minimally responsive. Result Diagrams: 04/02/18 05:25 04/02/18 05:25 Additional Lab and Data: Lab Results Microbiology and Other Data: Microbiology 03/23/18 14:00 CSF Gram Stain (Tube 3) - Final Cerebral Spinal Fluid 03/22/18 04:10 Nasal Screen MRSA (PCR)(SAMANTHA) - Final Nasal Mrsa Not Detected Assess/Plan/Problems-Billing This is a 77 year old female with encephalopathy and renal carcinoma, s/p nephrectomy on 03/09/18 that has had extensive workup with stay in the ICU. Her workup has not yielded any definitive etiology for her current state. Per neurology, may likely be autoimmune vs. paraneoplastic, however, her course has been complicated by GIB, hypotension in setting of steroid administration. Patient remains minimally responsive and the family has elected comfort care at this time. - Patient Problems (1) Encephalopathy acute Current Visit: Yes Status: Acute Code(s): G93.40 - ENCEPHALOPATHY, UNSPECIFIED SNOMED Code(s): 99029570 Comment: Multifactorial with no clear etiology, viral studies negative Extensive discussion with Dr. Phelsp today, at this point, it would seem that we cannot offer any treatment that the patient would be able to tolerate given her frail condition Family meeting with daughter Radha, who has updated patient's MOLST to reflect DNR and no PEG tube. She states that her mother would not want to be living on artificial means of support. Recommend hospice evaluation and comfort measures, daughter agreeable, MOSLT updated to reflect daughter and patient's wishes Life sustaining treatments discontinued per wishes. Morphine and Ativan PRN for comfort. (2) Diabetes 1.5, managed as type 2 Current Visit: Yes Status: Acute Code(s): E10.9 - TYPE 1 DIABETES MELLITUS WITHOUT COMPLICATIONS SNOMED Code(s): 688651865 Comment: Patient obtunded and unable to participate in swallow eval. Discussed with Family. Tube feeds, Blood Glucose monitoring, and NG tube discontinued. (3) GI bleed Current Visit: Yes Status: Acute Code(s): K92.2 - GASTROINTESTINAL HEMORRHAGE, UNSPECIFIED SNOMED Code(s): 83919691 Comment: In setting of GI bleed, prompting no more trials of empiric steroids. Famotidine D/C'd for comfort. (4) DNR (do not resuscitate) Current Visit: Yes Status: Acute (5) DVT prophylaxis Current Visit: Yes Status: Acute Code(s): OCF3996 - SNOMED Code(s): 830236537 Comment: Held for comfort. Status and Disposition: Pending swallow eval, daughter is agreeable to comfort measures and palliative/ hospice consultation. Will add comfort meds and discuss with case management regarding referral.
--- NOTE | 2018-04-07 04:53 | DS ---
DISCHARGE SUMMARY/ NOTE: DATE OF ADMISSION: 03/21/18 DATE OF EXPIRATION: 04/04/18 ATTENDING PROVIDER: Pastor Durbin MD * (DICTATED BY CORINA BALDERAS) HOSPITAL COURSE: This is a brief summary of the patient's long and complicated hospitalization. In brief, the patient is a 77-year-old female who recently underwent resection of her renal cell carcinoma with inferior vena cava thrombectomy at [facility]. After that time, she was found to have significant altered mental status with lethargy and presented to the emergency department. She was seen in consultation by Neurology, who states this could have been multifactorial to hyponatremia, possible stroke, seizure, hyperglycemia. The patient was admitted to the ICU, underwent significant testing including multiple MRIs of the brain, as well as vascular studies of the head and neck, electroencephalogram, lumbar puncture, as well as significant laboratory testing. The patient's MRI of the brain showed a lesion consistent of possible encephalitis or watershed infarct. The patient failed to improve with antibiotics and antivirals. The patient did not improve with other interventions. The patient was at one point given steroids for possible autoimmune or paraneoplastic encephalitis and improved slightly, but had developed a GI bleed believed to be related to stress and needed several units and 2 units of blood transfused. Steroids at that time were stopped and the patient continued to deteriorate. The patient was unable to swallow and was started on tube feedings. The patient has no positive findings on her CSF viral serology or other positively diagnostic studies for her encephalitis and altered mental status. On 04/03/18, Neurologists consulting believed that there was nothing else to be done bit for the patient that they could offer given the empiric steroids were off the table and she was not progressing otherwise and the family elected to stop life sustaining therapy and she comfort care. This was started on 04/04/18 and the patient approximately 4 p.m. on 04/04/18 due to respiratory arrest. Condolences were offered to the family and the probable cause of her was also discussed. The family stated that the patient would like her body to be donated to medical school and this was attend to be arranged through her fpc in [facility]. CORINA BALDERAS [id number]/[facility] #: [id number] THUY
== END 2018-04-04 15:45 | disposition expired | DRG 97 ==
LOC: ED 14:26 → ICU 20:28 → MED 03-24 16:15 → MEDTELE 03-28 10:19 → ICU 03-29 18:29 → MEDTELE 04-01 15:16 → MED 04-04 04:06
PROVIDERS: ADMIT Pediatrics; ATTEND Internal Medicine
PROC: 5A09357 Assistance with Respiratory Ventilation, Less than 24 Consecutive Hours, Continuous Positive Airway Pressure (ICD-10-PCS; 2018-03-22)
PROC: 009U3ZX Drainage of Spinal Canal, Percutaneous Approach, Diagnostic (ICD-10-PCS; principal; 2018-03-23)
PROC: 30233N1 Transfusion of Nonautologous Red Blood Cells into Peripheral Vein, Percutaneous Approach (ICD-10-PCS; 2018-03-29)
PROC: 05H633Z Insertion of Infusion Device into Left Subclavian Vein, Percutaneous Approach (ICD-10-PCS; 2018-03-30)
DX: G04.81 Other encephalitis and encephalomyelitis (principal); I63.8 Other cerebral infarction; R40.20 Unspecified coma; C64.9 Malignant neoplasm of unspecified kidney, except renal pelvis; J90 Pleural effusion, not elsewhere classified; E87.1 Hypo-osmolality and hyponatremia; K92.1 Melena; J98.11 Atelectasis; Z51.5 Encounter for palliative care; R09.2 Respiratory arrest; E11.65 Type 2 diabetes mellitus with hyperglycemia; I95.2 Hypotension due to drugs; R13.10 Dysphagia, unspecified; E83.42 Hypomagnesemia; I35.0 Nonrheumatic aortic (valve) stenosis; E87.6 Hypokalemia; Z90.5 Acquired absence of kidney; Z66 Do not resuscitate; T38.0X5A Adverse effect of glucocorticoids and synthetic analogues, initial encounter; Y92.239 Unspecified place in hospital as the place of occurrence of the external cause; H04.123 Dry eye syndrome of bilateral lacrimal glands; G31.84 Mild cognitive impairment of uncertain or unknown etiology; D47.3 Essential (hemorrhagic) thrombocythemia; Z79.1 Long term (current) use of non-steroidal anti-inflammatories (NSAID); Z79.4 Long term (current) use of insulin; Z79.899 Other long term (current) drug therapy; Z88.0 Allergy status to penicillin
CPT/HCPCS: 36415; 36600; 62270; 70450; 70496; 70498; 70551; 70552; 71045; 71250; 74176; 77002; 80048; 80053; 80202; 80329; 81003; 82140; 82164; 82272; 82330; 82533; 82550; 82607; 82784; 82803; 82945; 82947; 83516; 83605; 83735; 83880; 83930; 84100; 84134; 84157; 84425; 84439; 84443; 84484; 85014; 85018; 85025; 85027; 85610; 85652; 85730; 86038; 86140; 86235; 86255; 86592; 86618; 86666; 86753; 86850; 86900; 86901; 86922; 87040; 87070; 87205; 87529; 87641; 87798; 87899; 88112; 89051; 93005; 93306; 94660; 95816; 99284; A9270-GY; A9579; C1751; G0480; J0133; J0696; J1200; J1644; J1720; J1940; J1956; J2060; J2270; J2310; J2930; J3370; J3411; J3475; J3480; J3490; P9040; Q9967